=== PATIENT | female | born 1995 | race Caucasian/White ===

== ENCOUNTER 2023-02-22 13:54 | Outpatient (OUT) | payer BC, SELFPAY ==
--- NOTE | 2023-02-22 | US_ITS ---
The [address] [address] Patient Name: JOSELYN MATTHEWS MRN: [id number] date: 1995 Sex: F Assigned Patient Location: US Current Patient Location: US Accession/Order Number: [id number] Exam Date: 02/22/2023 13:57 Report Date: 02/22/2023 15:55 At the request of: ROSSY LEVI Procedure: US OB transvaginal EXAMINATION: US OB transvaginal HISTORY: MISSED MENSES COMPARISON: No relevant comparison available. FINDINGS: GESTATIONAL SAC: Present and normal appearing. YOLK SAC: Present and normal appearing. POLE: Present and normal appearing. CARDIAC: Present. UTERUS: Normal size and appearance. OVARIES: Right: Normal. Left: Corpus lutein cyst. CERVIX: 3.9 cm in length and closed. CUL-DE-SAC: Normal. OTHER: None. AGE BY LMP: 9 weeks 4 days MAGGI BY LMP: 09/23/2023 AGE BY US CRL: 9 weeks 3 days MAGGI BY US CRL: 09/24/2023 US/US OB transvaginal IMPRESSION: 1. Single live intrauterine . Electronically authenticated by: ENID BRADLEY Date: 02/22/2023 15:55
== END 2023-02-22 13:55 | disposition home or self-care (01) ==
LOC: US 13:55
PROVIDERS: Family Provider Family Medicine; Visit Provider Obstetrics & Gynecology
DX: Z34.91 Encounter for supervision of normal pregnancy, unspecified, first trimester (principal)
CPT/HCPCS: 76817

== ENCOUNTER 2023-03-21 20:39 | Outpatient (REF) | payer BC, SELFPAY ==
[2023-03-26 11:09] LABS: Age Gdln ACOG Testing Note (.); IGP, rfx Aptima HPV ASCU Note (.)
== END 2023-03-21 20:40 | disposition home or self-care (01) ==
LOC: LAB 20:39
PROVIDERS: Family Provider Family Medicine; Visit Provider Obstetrics & Gynecology
DX: Z12.4 Encounter for screening for malignant neoplasm of cervix (principal)
CPT/HCPCS: G0145

== ENCOUNTER 2023-03-31 11:50 | Outpatient (OUT) | payer BC, SELFPAY ==
[2023-04-05 02:07] LABS: AFP Value 35.6 ng/mL (.); Gest. Age on Collection Date 14.9 weeks (.); Gestat. Age Based On As provided (.); Insulin Dep Diabetes No (.); Maternal Age At EDD 26.4 yr (.); OSBR Risk 1 IN See interpretation. (.); Results Report (.)
== END 2023-03-31 11:51 | disposition home or self-care (01) ==
LOC: LAB 11:51
PROVIDERS: Family Provider Family Medicine; Visit Provider Obstetrics & Gynecology
DX: Z34.92 Encounter for supervision of normal pregnancy, unspecified, second trimester (principal)
CPT/HCPCS: 36415; 82105

== ENCOUNTER 2023-05-29 09:32 | Outpatient (OUT) | payer SELFPAY ==
--- NOTE | 2023-05-29 09:35 | US_ITS ---
[address] [address] Patient Name: JOSELYN MATTHEWS MRN: [id number] date: 1995 Sex: F Assigned Patient Location: US Current Patient Location: US Accession/Order Number: [id number] Exam Date: 05/29/2023 09:40 Report Date: 05/29/2023 15:36 At the request of: GENARO MUHAMMAD Procedure: US OB transvaginal EXAMINATION: US OB anatomy, US OB transvaginal HISTORY: Second Trimester Z34.92 COMPARISON: Ultrasound OB transvaginal 02/22/2023 TECHNIQUE: Transabdominal sonographic examination was performed for obstetrical and evaluation. FINDINGS: Number: 1 Heart Rate: 139.9 bpm H.B. /min Amniotic Fluid Volume: Subjectively normal Placental Location: Posterior with lower margin 3.8 cm from os. Cervix Length: 4.1 cm; closed. ANATOMY: Normal Structures -cerebellum, choroid plexus, cisterna magna, lateral cerebral ventricles, orbits, midline falx, hard palate, four-chamber heart, RVOT, LVOT, stomach, kidneys, bladder, umbilical cord insertion into abdomen, three-vessel cord, cervical spine, thoracic spine, lumbar spine, sacral spine, right upper extremity, left upper extremity, right lower extremity, left lower extremity. SUBOPTIMALLY SEEN: None ABNORMALITIES: None BIOMETRY: BPD: 5.6 cm 23 weeks 1 days ; 39% HC: 21.1 cm 23 weeks 1 days; 31% AC: 17.8 cm 22 weeks 5 days; 23% FL: 3.9 cm 22 weeks 4 days ; 17% EFW:526.8 grams; 18% FL/AC: 21.9 FL/BPD: 69.6 HC/AC: 1.2 GESTATIONAL AGE: Age by EDC: 23 weeks 2 days MAGGI by EDC: 09/23/2023 Age by current US: 22 weeks 6 days MAGGI by current US: 09/26/2023 US/US OB transvaginal IMPRESSION: 1. Single live intrauterine with growth detailed above. Electronically authenticated by: ENID BRADLEY Date: 05/29/2023 15:36
--- NOTE | 2023-05-29 09:35 | US_ITS ---
[address] [address] Patient Name: JOSELYN MATTHEWS MRN: [id number] date: 1995 Sex: F Assigned Patient Location: US Current Patient Location: US Accession/Order Number: [id number] Exam Date: 05/29/2023 09:40 Report Date: 05/29/2023 15:36 At the request of: GENARO MUHAMMAD Procedure: US OB anatomy EXAMINATION: US OB anatomy, US OB transvaginal HISTORY: Second Trimester Z34.92 COMPARISON: Ultrasound OB transvaginal 02/22/2023 TECHNIQUE: Transabdominal sonographic examination was performed for obstetrical and evaluation. FINDINGS: Number: 1 Heart Rate: 139.9 bpm H.B. /min Amniotic Fluid Volume: Subjectively normal Placental Location: Posterior with lower margin 3.8 cm from os. Cervix Length: 4.1 cm; closed. ANATOMY: Normal Structures -cerebellum, choroid plexus, cisterna magna, lateral cerebral ventricles, orbits, midline falx, hard palate, four-chamber heart, RVOT, LVOT, stomach, kidneys, bladder, umbilical cord insertion into abdomen, three-vessel cord, cervical spine, thoracic spine, lumbar spine, sacral spine, right upper extremity, left upper extremity, right lower extremity, left lower extremity. SUBOPTIMALLY SEEN: None ABNORMALITIES: None BIOMETRY: BPD: 5.6 cm 23 weeks 1 days ; 39% HC: 21.1 cm 23 weeks 1 days; 31% AC: 17.8 cm 22 weeks 5 days; 23% FL: 3.9 cm 22 weeks 4 days ; 17% EFW:526.8 grams; 18% FL/AC: 21.9 FL/BPD: 69.6 HC/AC: 1.2 GESTATIONAL AGE: Age by EDC: 23 weeks 2 days MAGGI by EDC: 09/23/2023 Age by current US: 22 weeks 6 days MAGGI by current US: 09/26/2023 US/US OB anatomy IMPRESSION: 1. Single live intrauterine with growth detailed above. Electronically authenticated by: ENID BRADLEY Date: 05/29/2023 15:36
== END 2023-05-29 09:33 | disposition home or self-care (01) ==
LOC: US 09:32
PROVIDERS: Family Provider Family Medicine; Visit Provider Physician Assistant
DX: Z34.92 Encounter for supervision of normal pregnancy, unspecified, second trimester (principal); Z3A.23 23 weeks gestation of pregnancy
CPT/HCPCS: 76805; 76817

== ENCOUNTER 2023-07-16 11:33 | Outpatient (OUT) | payer SELFPAY ==
--- OUTSIDE RECORDS SUMMARY | 2023-07-16 11:37 | XMS_ITS | CCD ---
Author Name Unknown Address [address] [facility] [address] [place] [address] Organization [facility] Care Team Providers Care Sign Builder Supervisor Name Role Phone NO, PHYSICIAN Unavailable Unavailable DEIRDRE ALEMAN Unavailable Unavailable SAIMA, MAXIM Unavailable Unavailable SAIMA, MAXIM Unavailable Unavailable BROCK GUEVARA Unavailable Unavailable SAIMA, MAXIM Unavailable Unavailable Unavailable Primary Care Provider UnavailDuran Saucedo Primary Care Physician [phone] Rossy LEVI Attending Unavailable Rossy LEVI Admitting Unavailable ROSSY LEVI Attending Unavailable CHRISTOPHER LAINEZ Attending Unavailab GENARO Cote Attending Unavailable ROSSY LEVI Attending Unavailable Medications Current Medications Medication Drug Class(es) Dates Sig (Normalized) Sig (Original) acetaminophen 325 mg / HYDROcodone bitartrate 5 mg oral tablet (1 source) Opioid Agonist Start: 08-11-2020 [place] 325 mg-5 mg oral tablet 1 tab(s), Oral, q6hr for pain, 8 tab(s), Refill(s) 0 Start Date: 08/11/20 Status: Ordered azithromycin 500 mg oral tablet (1 source) Macrolide Antimicrobial Start: 03-09-2017 End: 03-10-2017 take 2 tablets by mouth once daily azithromycin (ZITHROMAX) 500 MG tablet Take 2 (two) tablets (1,000 mg total) by mouth daily Take 2 tablets now for 1 day. 2 tablet 0 03/09/2017 03/10/2017 Active etonogestrel 68 mg drug implant (1 source) Progestin etonogestrel (NEXPLANON) 68 mg Impl subdermal implant by Subdermal route once. Active naproxen 500 mg oral tablet (1 source) Nonsteroidal Anti-inflammatory Drug Start: 08-11-2020 take 1 tablet by mouth twice daily at mealtime naproxen 500 mg Tab 500 mg = 1 tab(s), Oral, BID, with food, # 14 tab(s), Refills(s) 0 Start Date: 08/11/20 Status: Ordered Completed/Discontinued Medications Medication Drug Class(es) Dates Sig (Normalized) Sig (Original) cefTRIAXone 250 mg injection (2 sources) Cephalosporin Antibacterial Start: 03-09-2017 End: 03-09-2017 cefTRIAXone (ROCEPHIN) injection 250 mg Start: 03-09-2017 End: 03-09-2017 inject 250 mg by intramuscular injection once cefTRIAXone (ROCEPHIN) injection 250 mg 250 mg, Intramuscular, Once, Sun03/09/17 at 1945, For 1 dose, now Given 03/09/2017 19:02 EDT 250 mg Right Upper Outer Quadrant cephalexin 500 mg oral capsule (1 source) Cephalosporin Antibacterial Start: 08-11-2020 take 1 capsule by mouth four times daily Keflex 500 mg Cap 500 mg = 1 cap(s), Oral, QID, Take one capsule by mouth four times a day, # 40 cap(s), Refills(s) 0 Start Date: 08/11/20 Status: Ordered Problems Active Problems Problem Classification Problem Date Documented Da te Episodic/Chronic Unclassified (1 source) Unknown / UNK(Unknown) Onset: 01-16-2018 Unclassified (1 source) None (qualifier value) 08-11-2020 Past or Other Problems Problem Classification Problem Date Documented Date Episodic/Chronic Immunizations and screening for infectious disease (3 sources) Contact with and (suspected) exposure to infections with a predominantly sexual mode of transmission; Translations: [Exposure to sexually transmissible disorder] Onset: 03-09-2017 Episodic Unclassified (1 source) M25.572 Onset: 01-17-2018 Results Test Name Value Interpretation Reference Range Facility .Interpretation:on 3 HCV Ab IA Ql Comment Invalid Interpretation Code [facility] Comment on above: Result Comment: Not infected with HCV unless early or acute infection is suspected (which may be delayed in an immunocompromised individual), or other evidence exists to indicate HCV infection. Performed at: [address] [id number] PhD Ross Wise Performed By: #### 7 [id number], [id number], 90404810, 1432241, [id number], 878590700, 8702342268, 7831726, 969903892, 0639612 #### [facility] [address] [place] [address] C Urineon 03-01-2023 Bacteria identified Cx Nom (U) Microbiology PROCEDURE: Urine Culture [R1] SOURCE: U CleanCatch BODY SITE: COLLECTED DATE/TIME: 02/27/2023 16:35 EDT RECEIVED DATE/TIME: 02/27/2023 18:14 EDT START DATE/TIME: 02/27/2023 18:14 EDT FREE TEXT SOURCE: Rossy LEVI DO, DO, Corey R FINAL REPORTS Final Report [] Verified Date/Time: 03/01/2023 07:16 EDT 3,000 cfu/ml Mixed skin contaminants Performing Locations R1: This test was performed at: [facility], [address] [place] [address], [address]- , , Normal [facility] Comment on above: Performed By: #### 2 [id number] ####[facility] [address] [place] [address]70 HCV Antibody RFX to Quant PC [place] 03-01-2023 HCV IgG IA Ql Non-Reactive Invalid Interpretation Code Non Reactive [facility] Comment on above: Result Comment: Perf ormed at: [facility] [address] [id number] PhD Ross Wise Performed By: #### 7 [id number], 88497228, 62993078, 3938464, 9695416592, 968538226, 9632698984, 8074995, 263465487, 2957584 #### [facility] [address] [place] [address] 13266 HIV Screen 4th Generation wR fxon 03-01-2023 HIV 1+2 Ab+HIV1 p24 Ag IA Ql Non-Reactive Invalid Interpretation Code Non Reactive [facility] Comment on above: Result Comment: HIV Negative HIV-1/HIV-2 antibodies and HIV-1 p24 antigen were NOT detected. There is no laboratory evidence of HIV infection. Performed at: [address] [id number] PhD Ross Wise Performed By: #### 7 [id number], 11529120, 83581173, 0203219, 5185456959, 195063243, 5408860063, 6908726, 478557224, 8127903 #### [facility] [address] [place] [address] Hep Bs Agon 03-01-2023 HBV surface Ag IA Ql Negative Invalid Interpretation Code Negative [facility] Comment on above: Result Comment: Perf ormed at: [address] [id number] PhD Ross Wise Performed By: #### 7 28462394, 72240243, 54048136, 5932759, 7392200022, 491160162, 4952596923, 0979244, 904125416, 0200559 ####[facility] [address] [place] [address] RPR with Conf Rfxon 03-01-20 Reagin Ab RPR Ql (S) Non-Reactive Invalid Interpretation Code Non Reactive [facility] Comment on above: Result Comment: Perf ormed at: [address] [id number] PhD Ross Wise Performed By: #### 7 81524716, 98540672, 38218272, 9408632, 1329676945, 632283485, 1229848127, 1266361, 483315597, 3789525 #### [facility] [address] [place] [address] Rubella IgGon 03-01-2023 Rubella virus IgG Qn (S) 11.40 [IU]/mL Invalid Interpretation Code Immune >0.99 [facility] Comment on above: Result Comment: Non- immune <0.90 Equivocal 0.90 - 0.99 Immune >0.99 Performed at: [id number] [place], [place] [id number] PhD Ross Wise Performed By: #### 7 84374651, 14803217, 32225439, 9272796, 0109091737, 739763855, 1918285332, 0502512, 125514906, 7576163 ####[facility] [address] [place] [address] Rubella IgMon 03-01-2023 Rubella virus IgM IA Qn (S) <20.0 Invalid Interpretation Code 0.0-19.9 [facility] Comment on above: Result Comment: Nega tive <20.0 Equivocal 20.0 - 24.9 Positive >24.9 Performed at: [address] [id number] PhD Ross Wise Performed By: #### 7 35541951, 23649078, 01925950, 8506053, 0907140008, 987572178, 0441736557, 9512942, 896889726, 4862837 #### [address] [place] [address] ABO/Rhon 02-27-2023 ABO/Rh Positive Invalid Interpretation Code [facility] Comment on above: Performed By: #### 1 8399049, 3358093 ####[address] [place] [address] ABSCon 02-27-2023 ABSC Gel Interp Negative Normal [facility] Comment on above: Performed By: #### 1 8525208, 5864731 ####[address] [place] [address] BLOOD BANKOrdered By: Maxim Price on 02-27-2023 ABO/Rh Interp Positive Invalid Interpretation Code [facility] [place] Subsection ABSC Gel Interp Negative (02/27/23 4:43 PM) Normal [facility] [place] BB Subsection CBC w/Indiceson 02-27-2023 Erythrocyte distribution width (RBC) [Ratio] 12.8 % Normal 10.9-14.2 [facility] Comment on above: Performed By: #### 7 83058526, 16559909, 12017777, 2467766, 9375815695, 788943174, 7062684922, 8678358, 552512112, 6585410 #### [facility] [address] [place] [address] Hematocrit (Bld) [Volume fraction] 40.7 % Normal 34.0-46.0 [facility] Comment on above: Performed By: #### 7 90737095, 61810370, 40373212, 8841225, 1998398622, 252261232, 4261359789, 0369355, 950572004, 5190736 #### [facility] [address] [place] [address] Hemoglobin (Bld) [Mass/Vol] 14.0 g/dL Normal 12.0-16.0 [facility] Comment on above: Performed By: #### 7 06581107, 77449624, 53518592, 2314976, 8239084508, 134907280, 4609187085, 8574143, 546617615, 9811472 #### [facility] [address] [place] [address] MCH (RBC) [Entitic mass] 31.1 pg Normal 27.0-34.0 [facility] Comment on above: Performed By: #### 7 28828601, 69810158, 38140477, 7675077, 3819291237, 815368427, 1761775356, 7014415, 819545990, 4893099 #### [facility] [address] [place] [address] MCHC (RBC) [Mass/Vol] 34.4 g/dL Normal 31.4-36.0 [facility] Comment on above: Performed By: #### 7 94205916, 98896109, 58444590, 9641159, 4543904698, 635395141, 2589336840, 0951693, 860614603, 2873908 #### [facility] [address] [place] [address] MCV (RBC) [Entitic vol] 90.4 fL Normal 80.0-100.0 [facility] Comment on above: Performed By: #### 7 08454928, 89992060, 86181815, 1755716, 3074248341, 743426579, 1528306192, 4557043, 313863531, 2301723 #### [facility] [address] [place] [address] Platelet mean volume (Bld) [Entitic vol] 7.9 fL Normal 6.4-10.8 [facility] Comment on above: Performed By: #### 7 16937556, 38315826, 23355727, 6028671, 3425041540, 674138333, 3206350462, 8051871, 943692148, 6097625 #### [facility] [address] [place] [address] Platelets (Bld) [#/Vol] 312.0 E9/L Normal 150.0-500.0 [facility] Comment on above: Performed By: #### 7 74323121, 46702744, 46867593, 2297205, 0827350521, 905959200, 4938581282, 5736882, 909172926, 1211900 #### [facility] [address] [place] [address] RBC (Bld) [#/Vol] 4.5 E12/L Normal 4.3-5.9 [facility] Comment on above: Performed By: #### 7 07323908, 07906436, 82058406, 1701095, 8530380598, 346204171, 5199495423, 7712463, 106263774, 4704378 #### [facility] [address] [place] [address] WBC corrected for nucl RBC Auto (Bld) [#/Vol] 9.9 E9/L Normal 4.0-11.0 [facility] Comment on above: Performed By: #### 7 90583110, 04882645, 91428276, 3484046, 5350458110, 132032121, 8989436221, 0999233, 720752344, 7812569 #### [facility] [address] [place] [address] CHEMISTRYOrdered By: Cheko Segal on 02-27-2023 HbA1c (Bld) [Mass fraction] 5.0 % Normal <=5.9% [facility] ChemAutoSS CHEMISTRYOrdered By: SYSTEM SYSTEM on 02-27-2023 TSH Qn 2.85 m[IU]/L Normal 0.34 - 5.60 mcIU/mL [facility] Remisol Consent for Treatmenton 02-07 Consent for Treatment [id number]:127 Normal [facility] HEMATOLOGYOrdered By: Maxim Price on 02-27-2023 Erythrocyte distribution width (RBC) [Ratio] 12.8 % Normal 10.9 - 14.2 % [facility] HemeAutoSS Hematocrit (Bld) [Volume fraction] 40.7 % Normal 34.0 - 46.0 % [facility] HemeAutoSS Hemoglobin (Bld) [Mass/Vol] 14.0 g/dL Normal 12.0 - 16.0 gm/dL [facility] HemeAutoSS MCH (RBC) [Entitic mass] 31.1 pg Normal 27.0 - 34.0 pg [facility] HemeAutoSS MCHC (RBC) [Mass/Vol] 34.4 g/dL Normal 31.4 - 36.0 gm/dL [facility] HemeAutoSS MCV (RBC) [Entitic vol] 90.4 fL Normal 80.0 - 100.0 fL [facility] HemeAutoSS Platelet mean volume (Bld) [Entitic vol] 7.9 fL Normal 6.4 - 10.8 fL [facility] HemeAutoSS Platelets (Bld) [#/Vol] 312.0 E9/L Normal 150.0 - 500.0 E9/L [facility] HemeAutoSS RBC (Bld) [#/Vol] 4.5 E12/L Normal 4.3 - 5.9 E12/L [facility] HemeAutoSS WBC corrected for nucl RBC Auto (Bld) [#/Vol] 9.9 E9/L Normal 4.0 - 11.0 E9/L [facility] [place] HemeAutoSS CryR2kap 02-27-2023 HbA1c (Bld) [Mass fraction] 5.0 % Normal <=5.9 [facility] Comment on above: Performed By: #### 7 39070318, 40305873, 52377714, 1542405, 4583128676, 758084442, 9729754762, 9851436, 750442396, 6190790 #### [facility] [address] [place] [address] Physician Orderon 02-27-2023 Physician Order [id number]:127 Normal [facility] TSHon 02-27-2023 TSH Qn 2.85 m[IU]/L Normal 0.34-5.60 [facility] Comment on above: Performed By: #### 7 76619877, 83352793, 71727686, 0314882, 3544701460, 575952261, 5526791075, 6542043, 662023973, 0961386 #### [facility] [address] [place] [address] XR Ankle 3+ Views LTon 01-16 XR Ankle - left 3 views EXAMINATION TYPE: XR Ankle 3+ Views LT DATE OF EXAM : 01/16/2018 2:01 PMHISTORY: Pain in LEFT ankle, notable laterally and medially, status post fall injury 10 days agoCOMPARISON: NONEFINDINGS: The ankle mortise is symmetric. The talar dome appears intact. No acute fracture or dislocation is evident. Mild soft tissue swelling anteriorly and laterally.IMPRESSION: 1. No acute osseous findings.2. Mild anterolateral soft tissue swelling.Maximino Joy thanks you for the opportunity to care for your patient. Workstation ID: [id number] - [id number] FINAL REPORT Dictated By: Galo Whitehead MD 01/16/2018 15:17Assigned Physician: Galo Whitehead MD and Electronically Signed By: Galo Whitehead MD 01/16/2018 15:17Transcribed by: AYLIN 01/16/2018 15:17Technologist: MLR Normal [facility] CBC with Differentialon 03-0 Basophils Auto #/vol (Bld) 0.10 thou/mcL Normal 0.00-0.[address] [facility] Comment on above: Performed By: #### 6 9742-5 ####[address] Basophils/100 WBC Auto (Bld) 0.8 % Normal 0.0-2.[address] [facility] Comment on above: Performed By: #### 6 9742-5 ####[address] Eosinophils 0.10 thou/mcL Normal 0.00-0.70 [facility] Comment on above: Performed By: #### 6 9742-5 ####[address] Eosinophils/100 leukocytes 1.1 % Normal 0.0-7.[address] [facility] Comment on above: Performed By: #### 6 9742-5 ####[address] Erythrocyte distribution width Entitic volume (RBC) 13.2 % Normal 11.0-14.8 [facility] Comment on above: Performed By: #### 6 9742-5 ####[address] Erythrocytes (RBC) 4.66 million/mcL Normal 3.80-5.[address] [facility] Comment on above: Performed By: #### 6 9742-5 ####[address] Hematocrit (HCT) 41.6 % Normal 35.0-45.0 [facility] Comment on above: Performed By: #### 6 9742-5 ####[address] Hemoglobin mass conc (Bld) 14.5 g/dL Normal 12.0-16.[address] [facility] Comment on above: Performed By: #### 6 9742-5 ####[facility] [address] [place], [place] Lymphocytes 1.70 thou/mcL Normal 1.00-4.80 [facility] Comment on above: Performed By: #### 6 9742-5 ####[facility] [address] [place], [place] Lymphocytes/100 leukocytes 21.3 % Low 25.0-45.[address] [facility] Comment on above: Performed By: #### 6 9742-5 ####[address] MCH 31.2 Picograms Normal 27.0-34.0 [facility] Comment on above: Performed By: #### 6 9742-5 ####[address] MCHC mass conc (RBC) 35.0 g/dL Normal 32.0-36.0 [facility] Comment on above: Performed By: #### 6 9742-5 ####[facility] MCV 89.3 fL Normal 80.0-97.[address] [facility] Comment on above: Performed By: #### 6 9742-5 ####[address] Monocytes 0.50 thou/mcL Normal 0.00-0.90 [facility] Comment on above: Performed By: #### 6 9742-5 ####[address] Monocytes/100 leukocytes 6.7 % Normal 2.0-8.[address] [facility] Comment on above: Performed By: #### 6 9742-5 ####[address] Neutrophils 5.50 thou/mcL Normal 1.80-7.70 [facility] Comment on above: Performed By: #### 6 9742-5 ####[address] Neutrophils/100 WBC Auto (Bld) 70.1 % Normal 39.0-75.[address] [facility] Comment on above: Performed By: #### 6 9742-5 ####[facility] [address] [place], [place] Platelet mean volume Entitic volume (Bld) 8.1 FL Normal 6.2-12.1 [facility] Comment on above: Performed By: #### 6 9742-5 ####[facility] [address] [place], [place] Platelets 314 thou/mcL Normal 142-[address] [facility] Comment on above: Performed By: #### 6 9742-5 ####[address] [place], [place] WBC (Leukocytes) 7.8 thou/mcL Normal 4.5-13.[address] [facility] Comment on above: Performed By: #### 6 9742-5 ####[address] [place], [place] Comprehensive Metabolic Pane nilesh 09-12-2017 Alanine aminotransferase (ALT) 14 Units/L Normal 14-[address] [facility] Comment on above: Performed By: #### 6 9405-9, 12825-8, 3040-3, 33030-8 ####[facility] [address] [place], [place] Albumin 4.3 g/dL Normal 3.5-4.[address] [facility] Comment on above: Performed By: #### 6 9405-9, 28984-8, 3040-3, 09126-3 ####[facility] [address] [place], [place] Alkaline phosphatase (ALP) 78 Units/L Normal 32-[address] [facility] Comment on above: Performed By: #### 6 9405-9, 05818-3, 3040-3, 05392-5 ####[facility] [address] [place], [place] Anion gap 9.0 mmol/L Normal 6.0-18.[address] [facility] Comment on above: Result Comment: PLEA SE NOTE:The calculated Anion Gap(AGAP) does not include Potassium. Performed By: #### 6 9405-9, 59735-9, 3040-3, 45011-3 ####[facility] [address], [place] Aspartate aminotransferase (AST) 17 Units/L Normal 15-[address] [facility] Comment on above: Performed By: #### 6 9405-9, 47318-4, 3040-3, 29722-9 ####[facility] [address], [place] Bilirubin (total) 0.7 mg/dL Normal 0.3-1.2 [facility] Comment on above: Performed By: #### 6 9405-9, 62456-2, 3040-3, 26492-3 ####[facility] [address] [place] Calcium 9.8 mg/dL Normal 8.9-10.[address] [facility] Comment on above: Performed By: #### 6 9405-9, 86028-0, 3040-3, 57438-4 ####[facility] [address], [place] Chloride 103 mmol/L Normal 98-[address] [facility] Comment on above: Performed By: #### 6 9405-9, 70234-1, 3040-3, 22847-0 ####[facility] [address], [place] CO2 29 mmol/L Normal 22-[address] [facility] Comment on above: Performed By: #### 6 9405-9, 50989-7, 3040-3, 69419-1 ####[facility] [address] [place] Creatinine 0.87 mg/dL Normal 0.60-1.[address] [facility] Comment on above: Performed By: #### 6 9405-9, 64918-3, 3040-3, 08690-2 ####[facility] [address] [place] Glucose mass conc 89 mg/dL Normal 70-110 [facility] Comment on above: Performed By: #### 6 9405-9, 32994-5, 3040-3, 30329-0 ####[facility] [address], [place] Potassium molar conc 5.4 mmol/L High 3.6-5.1 [facility] Comment on above: Performed By: #### 6 9405-9, 37462-1, 3040-3, 06503-7 ####[facility] [address], [place] Protein 6.7 g/dL Normal 6.1-7.[address] [facility] Comment on above: Performed By: #### 6 9405-9, 56834-4, 3040-3, 93065-3 ####[facility] [address] [place] Sodium 141 mmol/L Normal 136-[address] [facility] Comment on above: Performed By: #### 6 9405-9, 72227-4, 3040-3, 99321-4 ####[facility] [address] [place] Urea nitrogen mass conc (BldV) 10 mg/dL Normal 8-[address] [facility] Comment on above: Performed By: #### 6 9405-9, 70783-7, 3040-3, 50339-7 ####[facility] [address] [place] GFRaaon 09-12-2017 eGFR (black) mL/min/{1.73_m2} Normal [facility] Comment on above: Result Comment: The MDRD equation has not been validated for those over 70 years, women, patients with serious co-morbid conditions, or with extremes of bodysize, muscle mass of nutritional status. Performed By: #### 6 9405-9, 60504-4, 3040-3, 85373-9 ####[facility] [address], [place] GFRbbon 09-12-2017 eGFR (non-black) mL/min/{1.73_m2} Normal [facility] Comment on above: Performed By: #### 6 9405-9, 38795-3, 3040-3, 06065-7 ####[facility] [address], [place] Lipaseon 09-12-2017 Lipase 16 Units/L Low 22-[address] [facility] Comment on above: Performed By: #### 6 9405-9, 96600-2, 3040-3, 49430-5 ####[facility] [address], [place] Vital Signs Date Time Vital Sign Value Performing Clinician Facility 03-09-2017 18:37-0400 BMI (Body Mass Index) 22.43 kg/m2 Deirdre Aleman [facility] Work Phone: 03-09-2017 18:37-0400 Body Temperature 98.49 [degF] Deirdre Aleman [facility] Work Phone: 03-09-2017 18:37-0400 BP Diastolic 76 mm[Hg] Deirdre Aleman [facility] Work Phone: 03-09-2017 18:37-0400 BP Systolic 127 mm[Hg] Deirdre Aleman [facility] Work Phone: 03-09-2017 18:37-0400 Height 170.2 cm Deirdre Aleman [facility] Work Phone: 03-09-2017 18:37-0400 Pulse (Heart Rate) 61 /min Deirdre Aleman [facility] Work Phone: 03-09-2017 18:37-0400 Pulse Oximetry 98 % Deirdre Aleman [facility] Work Phone: 03-09-2017 18:37-0400 Respiratory Rate 18 /min Deirdre Aleman [facility] Work Phone: 03-09-2017 18:37-0400 Weight 64.95 kg Deirdre Aleman [facility] Work Phone: Encounters Encounter Date Encounter Type Care Provider Facility Start: 07-03-2023 End: 07-03-2023 ambulatory ROSSY LEVI Not Available Start: 06-20-2023 End: 06-20-2023 ambulatory GENARO MUHAMMAD Not Available Start: 05-23-2023 End: 11-15-2023 ambulatory CHRISTOPHER LAINEZ Not Available Start: 05-22-2023 End: 05-22-2023 ambulatory ROSSY LEVI Not Available Start: 02-27-2023 End: 02-28-2023 ambulatory Rossy LEVI [place] [place] Start: 02-27-2023 End: 02-27-2023 Patient encounter procedure Rossy LEVI [facility] Start: 01-17-2018 End: 01-17-2018 Patient encounter BROCK GUEVARA Facility:[facility] Start: 09-13-2017 End: 09-13-2017 Patient encounter MAXIM LANDAVERDE Facility:[facility] Start: 03-09-2017 End: 03-09-2017 Ambulatory PHYSICIAN NO [facility] Start: 03-09-2017 End: 03-09-2017 Office outpatient new 30 minutes Deirdre Aleman Work Phone: [facility] Comment on above: STD exposure (Primar y Dx) Procedures Date Procedure Procedure Detail Performing Clinician None (qualifier value) Rossy LEVI Plan of Treatment Date Care Activity Detail Author Start: 03-09-2017 SEQUENTIAL INFLUENZA VACCINE (#1) SEQUENTIAL INFLUENZA VACCINE (#1) [facility] Work Phone: Start: 2008 HPV VACCINES (1 of 3 - Female 3 Dose Series) HPV VACCINES (1 of 3 - Female 3 Dose Series) [facility] Work Phone: Start: 1997 TETANUS EVERY 10 YR TETANUS EVERY 10 YR [facility] Work Phone: Chlamydia/GC/Trichom katarzyna s Amplified RNA Chlamydia/GC/Trichomona s Amplified RNA Routine STD exposure Ordered: 03/09/2017 [facility] Work Phone: Comment on above: Ordered: 03/09/2017 Chlamydia/Gonorrhoea e Amplified RNA Chlamydia/Gonorrhoeae Amplified RNA Routine STD exposure Ordered: 03/09/2017 [facility] Work Phone: Comment on above: Ordered: 03/09/2017 Trichomonas vaginali s Amplified RNA Trichomonas vaginalis Amplified RNA Routine STD exposure Ordered: 03/09/2017 [facility] Work Phone: Comment on above: Ordered: 03/09/2017 Immunizations Immunization Date Immunization Notes Care Provider Calvin angel 08-11-2020 tetanus toxoid, redu chris diphtheria toxoid, and acellular pertussis vaccine, adsorbed Rossylondon LEVI [facility] Payers Date Payer Category Payer Unknown 2015 Unknown [id number] 1997 Unknown [id number] 1997 Unknown [id number] 1997 Unknown [id number] 1997 Unknown [id number] 1997 Unknown [id number] Social History Date Type Detail Facility Start: 03-09-2017 Tobacco smoking stat [facility] Never smoker [facility] Work Phone: Sex Assigned At Not on file [facility] Work Phone: Tobacco smoking status No Smokin g Status Entered [facility] Sex Assigned At Female [facility] Evaluation + Plan note 02-27-2023 Note Date & Type Note Facility 02-27-2023 Evaluation + Plan note Diagnostic Tests PendingUrine Culture 02/27/23HIV Screen 4th Generation wRfx 02/27/23HCV Antibody RFX to Quant PCR 02/27/23Hepatitis B Surface Antigen 02/27/23RPR with Conf Rfx 02/27/23Rubella Antibody IgG 02/27/23Rubella Antibody IgM 02/27/23 [facility] Hospital course Narrative Note Date & Type Note Facility Hospital course Narrative No data available for this section [facility] Hospital Discharge instructions Note Date & Type Note Facility Hospital Discharge instructions No data available for this section [facility] Progress note Note Date & Type Note Facility Progress note No data available for this section [facility] Summary Purpose Family History No Family History Records FoundNo Family History Records FoundNo Family History Records FoundNo Family History Records Found Advance Directives No Advanced Directives Records FoundNo Advanced Directives Records FoundNo Advanced Directives Records FoundNo Advanced Directives Records Found Instructions * Patient Instructions - Deirdre Aleman PA-C - 03/09/2017 6:54 PM EDT Follow up with [facility], If worse go to ED for further evaluation Exposure to Sexually Transmitted Infections: Care Instructions Your Care Instructions Sexually transmitted infections (STIs) are those diseases spread by sexual contact. There are at least 20 different STIs, including chlamydia, gonorrhea, syphilis, and human immunodeficiency virus (HIV), which causes AIDS. Bacteria- caused STIs can be treated and cured. STIs caused by viruses, such as HIV, can be treated but not cured. Some STIs can reduce a woman's chances of getting in the future. STIs are spread during sexual contact, such as vaginal intercourse and oral or anal sex. Follow-up care is a jain part of your treatment and safety. Be sure to make and go to all appointments, and call your doctor if you are having problems. It s also a good idea to know your test resultsand keep a list of the medicines you take. How can you care for yourself at home? Your doctor may have given you a shot of antibiotics. If your doctor prescribed antibiotic pills, take them as directed. Do not stop taking them just because you feel better. You need to take the full course of antibiotics. Do not have sexual contact while you have symptoms of an STI or are being treated for an STI. Tell your sex partner (or partners) that he or she will need treatment. If you are a woman, do not douche. Douching changes the normal balance of bacteria in the vagina and may spread an infection up into your reproductive organs. To prevent exposure to STIs in the future Use latex condoms every time you have sex. Use them from the beginning to the end of sexual contact. Talk to your partner before you have sex. Find out if he or she has or is at risk for any STI. Keepin mind that a person may be able to spread an STI even if he or she does not have symptoms. Do not have sex if you are being treated for an STI. Do not have sex with anyone who has symptoms of an STI, such as sores on the genitals or mouth. Having one sex partner (who does not have STIs and does not have sex with anyone else) is a good way to avoid STIs. When should you call for help? Call your doctor now or seek immediate medical care if: You have new pain in your belly or pelvis. You have symptoms of a urinary tract infection. These may include: Pain or burning when you urinate. A frequent need to urinate without being able to pass much urine. Pain in the flank, which is just below the rib cage and above the waist on either side of the back. Blood in your urine. A fever. You have new or worsening pain or swelling in the scrotum. Watch closely for changes in your health, and be sure to contact your doctor if: You have unusual vaginal bleeding. You have a discharge from the vagina or penis. You have any new symptoms, such as sores, bumps, rashes, blisters, or warts. You have itching, tingling, pain, or burning in the genital or anal area. You think you may have an STI. Where can you learn more? Log into your personal health record on https://Playtikat.Rockpack and enter M049 in the Education box to learn more about Exposure to Sexually Transmitted Infections: Care Instructions. Current as of: December 03, 2015 Content Version: 11.2 3241-1768 [employer]. Care instructions adapted under license by your healthcare professional. If you have questions about a medical condition or this instruction, always ask your healthcare professional. [employer] disclaims any warranty or liability for your use of this information. in this encounter History of Present Illness * Deirdre Aleman PA-C - 03/09/2017 6:50 PM EDT Formatting of this note may be different from the original. PATIENT NAME: Joselyn Matthews [facility] [address] [facility] [address] : 1995 DATE OF VISIT: 03/09/2017 #: [id number] PROVIDER: Deirdre Aleman PA-C Chief Complaint Patient presents with Exposure to STD boyfriend treated for chlamydia today SUBJECTIVE 21 y.o. female presents Exposure to STD (boyfriend treated for chlamydia today) HPI Comments: Boyfriend positive for chlamydia today, pt has had pelvic in the past, denies any symptoms Exposure to STD Pertinent negatives include no abdominal pain or fever. MEDICAL ISSUES History reviewed. No pertinent past medical history. There is no problem list on file for this patient. SOCIAL HISTORY Social History Social History Marital status: Single Spouse name: N/A Number of children: N/A Years of education: N/A Occupational History Not on file. Social History Main Topics Smoking status: Never Smoker Smokeless tobacco: Never Used Alcohol use Yes Comment: occ Drug use: No Sexual activity: Not on file Other Topics Concern Not on file Social History Narrative No narrative on file FAMILY HISTORY History reviewed. No pertinent family history. REVIEW OF SYSTEMS Review of Systems Constitutional: Negative for chills and fever. Gastrointestinal: Negative for abdominal pain. Genitourinary: Negative for vaginal discharge. MEDICATIONS PRIOR TO VISIT No current outpatient prescriptions on file prior to visit. No current facility-administered medications on file prior to visit. ALLERGIES/INTOLERANCES No Known Allergies OBJECTIVE BP 127/76 Pulse 61 Temp 98.5 F (36.9 C) (Oral) Resp 18 Ht 5' 7 Wt 65 kg (143 lb 3.2 oz) SpO2 98% BMI 22.43 kg/m2 Physical Exam Constitutional: She is oriented to person, place, and time. She appears well- developed and well-nourished. Cardiovascular: Normal rate. Pulmonary/Chest: Effort normal. Abdominal: Soft. There is no tenderness. Genitourinary: Genitourinary Comments: Currently on menses Neurological: She is alert and oriented to person, place, and time. Results No results found for this or any previous visit (from the past 168 hour(s)). ASSESSMENT/PLAN (expressed as patient instructions): No diagnosis found. No Follow-up on file. ADDITIONAL CLINICAL COMMENTS No notes on file ORDERS PLACED THIS VISIT No orders of the defined types were placed in this encounter. MEDICATION LIST AT END OF VISIT Current Outpatient Prescriptions Medication Sig Dispense Refill etonogestrel (NEXPLANON) 68 mg Impl subdermal implant by Subdermal route once. No current facility-administered medications for this visit. in this encounter Assessments Diagnosis STD exposure - Primary Additional Source Comments INFORMATION SOURCE (unrecogn ized section and content) DATE CREATED AUTHOR 01/02/2018 [facility] DATE CREATED AUTHOR AUTHOR'S ORGANIZ ATION 01/17/2018 [facility] DATE CREATED AUTHOR AUTHOR'S ORGANIZ ATION 03/02/2023 [facility] DATE CREATED AUTHOR AUTHOR'S ORGANIZ ATION 07/05/2023 [facility] EPIC Reason for Visit (unrecogniz ed section and content) Reason Comments Exposure to STD boyfriend treated fo r chlamydia today Patient Care team informatio n (unrecognized section and content) Personnel Name: Cristofer COLEMAN, Duran Elizabeth Address: Address: [address] [place] [address] FOR RECORDS PERTAINING TO PATIENTS WHO ARE OR HAVE BEEN ENROLLED IN A CHEMICAL DEPENDENCY/SUBSTANCEABUSE PROGRAM, SOME INFORMATION MAY BE OMITTED. This clinical summary was aggregated from multiple sources. Caution should be exercised in using it in the provision of clinical care. This summary normalizes information from multiple sources, and as a consequence, information in this document may materially change the coding, format and clinical context of patient data. In addition, data may be omitted in some cases. CLINICAL DECISIONS SHOULD BE BASED ON THE PRIMARY CLINICAL RECORDS. [employer] provides no warranty or guarantee of the accuracy or completeness of information in this document.
[2023-07-16 12:53] LABS: Basophils Percent Auto 0.3 % (0.2-2.0); Eosinophils Percent Auto 0.3 % (0.9-7.0); Hematocrit 37.3 % (36.0-48.0); Hemoglobin 12.2 g/dL (12.0-16.0); Immature Granulocytes Abs Auto 0.04 10^3/uL (0.00-0.03); Immature Granulocytes Pct Auto 0.4 % (0.0-0.5); Lymphocytes Absolute Auto 1.3 10^3/uL (1.2-3.8); Mean Corpuscular HGB Conc 32.7 g/dL (29.9-35.2); Mean Corpuscular Hemoglobin 30.5 pg (26.7-34.0); Mean Corpuscular Volume 93.3 fL (81.0-99.0); Mean Platelet Volume 9.6 fL (9.5-13.5); Monocytes Absolute Auto 0.7 10^3/uL (0.3-0.8); Monocytes Percent Auto 7.3 % (1.7-12.0); Neutrophils Percent Auto 77.7 % (43.0-75.0); Platelet Count 248 10^3/uL (150-450); Red Cell Distribution Width 12.6 % (11.0-15.0)
[2023-07-16 14:39] LABS: Glucose 1 Hour 114 mg/dL
== END 2023-07-16 11:34 | disposition home or self-care (01) ==
LOC: LAB 11:34
PROVIDERS: Family Provider Family Medicine; Visit Provider Obstetrics & Gynecology
DX: Z34.92 Encounter for supervision of normal pregnancy, unspecified, second trimester (principal)
CPT/HCPCS: 36415; 82950; 85025

== ENCOUNTER 2023-08-27 20:29 | Outpatient (REF) | payer MEDICAID, SELFPAY ==
--- OUTSIDE RECORDS SUMMARY | 2023-08-27 20:34 | XMS_ITS | CCD ---
Author Name Unknown Address [address] [place] [address] Organization [facility] Care Team Providers Care Feather Cutting Machine Feeder Name Role Phone NO, PHYSICIAN Unavailable Unavailable DEIRDRE ALEMAN Unavailable Unavailable SAIMA, MAXIM Unavailable Unavailable SAIMA, MAXIM Unavailable Unavailable BROCK GUEVARA Unavailable Unavailable SAIMA, MAXIM Unavailable Unavailable Unavailable Primary Care Provider UnavailDuran Saucedo Primary Care Physician Rossy AYERS Attending Unavailable Rossy AYERS Admitting Unavailable Duran Cleveland MD Primary Care Provider ROSSY AYERS Attending Unavailable KARLA MUHAMMAD Attending Unavailable CHRISTOPHER LAINEZ Attending Unavailab le ROSSY AYERS Attending Unavailable KARLA MUHAMMAD Attending Unavailable ROSSY AYERS Attending Unavailable KARLA MUHAMMAD Attending Unavailable ROSSY AYERS Attending Unavailable Allergies Allergy Classification Reported Allergen(s) Allergy Type Date of Onset Reaction(s) Facility (2 sources) Octacosanol Propensity to adverse reactions 3 [facility] Work Phone: Medications Current Medications Medication Drug Class(es) Dates Sig (Normalized) Sig (Original) acetaminophen 325 mg / HYDROcodone bitartrate 5 mg oral tablet (1 source) Opioid Agonist Start: 08-11-2020 [place] 325 mg-5 mg oral tablet 1 tab(s), [...] Refills(s) 0 Start Date: 08/11/20 Status: Ordered MV-Min-Fe Fum-FA-DHA ( 1 PO) (2 sources) MV-Min- Fe Fum-FA-DHA ( 1 PO) Take by mouth. 0 Active Completed/Discontinued Medications Medication Drug Class(es) Dates Sig [...] Classification Problem Date Documented Da te Episodic/Chronic Other and delivery including normal (2 sources) Third trimester ; Translations: [Encounter for supervision of normal , unspecified, third trimester] 08-15-2023 Episodic Unclassified (1 source) Unknown / UNK(Unknown) Onset: 01-16-2018 Unclassified (1 source) None (qualifier value) 08-11-2020 Past or Other Problems Problem Classification Problem Date Documented Date Episodic/Chronic Immunizations and screening for infectious disease (3 sources) Contact with and (suspected) exposure to infections with a predominantly sexual mode of transmission; Translations: [Exposure to sexually transmissible disorder] Onset: 03-09-2017 Episodic Unclassified (1 source) M25.572 Onset: 01-17-2018 NEGATED: Highlighted row has been ruled out!Unclassified (2 sources) No known active problems 05-23-2023 Results Test Name Value Interpretation Reference Range Facility Urinalysis macro (dipstick) panel (U)on 08-20-2023 Bilirubin, UA Negative Negative - 4(70) +++ mg/dL [facility] Blood, UA Negative Negative - 50 Maxime/mcL [facility] Clarity, UA Clear [facility] Color, UA Yellow [facility] Glucose, UA Negative Negative - 2000(110) ++++ mg/dL [facility] Interpretation and review of laboratory results Abnormal [facility] Ketones, UA Negative Negative - 160(16) ++++ mg/dL [facility] Leukocytes, UA Trace Negative - 500+++ Cassidy/mcL [facility] Nitrite, UA Negative Negative - Positive [facility] pH, UA 6.5 5 - 9 [facility] Protein, UA Negative Negative - 2000(20) ++++ mg/dL [facility] Spec Grav, UA 1.020 1 - 1.03 [facility] Urobilinogen, UA 0.2 0.2 - 12 mg/dL [facility] Cyt[facility] Cervical or vaginal smear or scraping studyOrdered By: Shivani Garcia on 03-21-2023 [facility] .Interpretation:on 3 HCV Ab IA Ql Comment Invalid Interpretation Code [facility] Comment on above: Result Comment: Not infected with HCV unless early or acute infection is suspected (which may be delayed in an immunocompromised individual), or other evidence exists to indicate HCV infection. Performed at: [facility] [id number] PhD Ross Wise Performed By: #### 7 [id number], 06932960, 22511251, 4481052, [id number], 449826557, 5725318283, 3467978, 915193060, 4722811 #### [facility] [address] [place] [address] C Urineon 03-01-2023 Bacteria identified Cx Nom (U) Microbiology PROCEDURE: Urine Culture [R1] SOURCE: U CleanCatch BODY SITE: COLLECTED DATE/TIME: 02/27/2023 16:35 EDT RECEIVED DATE/TIME: 02/27/2023 18:14 EDT START DATE/TIME: 02/27/2023 18:14 EDT FREE TEXT SOURCE: Rossy AYERS DO, DO, Rossy Montejo FINAL REPORTS Final Report [] Verified Date/Time: 03/01/2023 07:16 EDT 3,000 cfu/ml Mixed skin contaminants Performing Locations R1: This test was performed at: [facility], [address] [place] [address], [address]- , , Normal [facility] Comment on above: Performed By: #### 2 [id number] ####[facility] [address] [place] [address] HCV Antibody RFX to Quant PC Peterson 03-01-2023 HCV IgG IA Ql Non-Reactive Invalid Interpretation Code Non Reactive [facility] Comment on above: Result Comment: Perf ormed at: [facility] [id number] PhD Ross Wise Performed By: #### 7 [id number], 50956315, 18309045, 5397957, 6590145830, 026981136, 2446438789, 9159397, 428691951, 5416458 #### [facility] [address] [place] [address] HIV Screen 4th Generation wR fxon 03-01-2023 HIV 1+2 Ab+HIV1 p24 Ag IA Ql Non-Reactive Invalid Interpretation Code Non Reactive [facility] Comment on above: Result Comment: HIV Negative HIV-1/HIV-2 antibodies and HIV-1 p24 antigen were NOT detected. There is no laboratory evidence of HIV infection. Performed at: [place] [id number] [place], [place] [id number] PhD Ross Wise Performed By: #### 7 [id number], 36114157, 78069225, 5680681, 5197056022, 589875693, 3440837441, 3228209, 489556555, 8853761 #### [facility] [address] [place] [address] Hep Bs Agon 03-01-2023 HBV surface Ag IA Ql Negative Invalid Interpretation Code Negative [facility] Comment on above: Result Comment: Perf ormed at: [address] [id number] PhD Ross Wise Performed By: #### 7 47751036, 34581912, 31026827, 2775235, 9904359063, 126573824, 6890946549, 7170516, 019274980, 2119367 ####[facility] [address] [place] [address] RPR with Conf Rfxon 03-01-20 Reagin Ab RPR Ql (S) Non-Reactive Invalid Interpretation Code Non Reactive [facility] Comment on above: Result Comment: Perf ormed at: [address] [id number] PhD Ross Wise Performed By: #### 7 12851432, 39909158, 38588450, 2286970, 4791147548, 026841088, 3634779721, 4146649, 566361530, 0988019 #### [facility] [address] [place] [address] Rubella IgGon 03-01-2023 Rubella virus IgG Qn (S) 11.40 [IU]/mL Invalid Interpretation Code Immune >0.99 [facility] Comment on above: Result Comment: Non- immune <0.90 Equivocal 0.90 - 0.99 Immune >0.99 Performed at: [address] [id number] PhD Ross Wise Performed By: #### 7 [id number], 02790983, 98870160, 9018871, 5628109788, 826747301, 3123017499, 4764546, 929553033, 7374551 ####[facility] [address] [place] [address] Rubella IgMon 03-01-2023 Rubella virus IgM IA Qn (S) <20.0 Invalid Interpretation Code 0.0-19.9 [facility] Comment on above: Result Comment: Nega tive <20.0 Equivocal 20.0 - 24.9 Positive >24.9 Performed at: [facility] [id number] PhD Ross Wise Performed By: #### 7 77693566, 32322860, 57678662, 6892975, 1588638078, 555213201, 9785725652, 3532732, 943388811, 9680979 #### [facility] [address] [place] [address] ABO/Rhon 02-27-2023 ABO/Rh Positive Invalid Interpretation Code [facility] Comment on above: Performed By: #### 1 8252442, 6869017 ####[facility] [address] [place] [address] ABSCon 02-27-2023 ABSC Gel Interp Negative Normal [facility] Comment on above: Performed By: #### 1 2345076, 3092304 ####[facility] [address] [place] [address] BLOOD BANKOrdered By: Maxim Price on 02-27-2023 ABO/Rh Interp Positive Invalid Interpretation Code [facility] [place] Subsection ABSC Gel Interp Negative (02/27/23 4:43 PM) Normal [facility] [place] Subsection CBC w/Indiceson 02-27-2023 Erythrocyte distribution width (RBC) [Ratio] 12.8 % Normal 10.9-14.2 [facility] Comment on above: Performed By: #### 7 65050622, 80131262, 85765187, 5553892, 9567065217, 322900421, 2717973020, 1775788, 929114555, 4947519 #### [facility] [address] [place] [address] Hematocrit (Bld) [Volume fraction] 40.7 % Normal 34.0-46.0 [facility] Comment on above: Performed By: #### 7 37008864, 05535965, 92374496, 3302980, 6627440103, 741861075, 8899312525, 7007087, 848484670, 5549140 #### [facility] [address] [place] [address] Hemoglobin (Bld) [Mass/Vol] 14.0 g/dL Normal 12.0-16.0 [facility] Comment on above: Performed By: #### 7 82640834, 22686553, 85118310, 6471763, 6186158247, 595720045, 7844341683, 4727760, 181443000, 4812274 #### [facility] [address] [place] [address] MCH (RBC) [Entitic mass] 31.1 pg Normal 27.0-34.0 [facility] Comment on above: Performed By: #### 7 10363790, 97700150, 83190715, 8582134, 0976048741, 982872307, 9088086129, 7082297, 649779805, 8936754 #### [facility] [address] [place] [address] MCHC (RBC) [Mass/Vol] 34.4 g/dL Normal 31.4-36.0 [facility] Comment on above: Performed By: #### 7 19479147, 73693196, 14770631, 0301835, 1214924534, 576878006, 2201278320, 7634747, 492466554, 6108949 #### [facility] [address] [place] [address] MCV (RBC) [Entitic vol] 90.4 fL Normal 80.0-100.0 [facility] Comment on above: Performed By: #### 7 83531771, 29429479, 14002449, 2441683, 6827836897, 125871441, 6087249622, 4228152, 265813811, 5259519 #### [facility] [address] [place] [address] Platelet mean volume (Bld) [Entitic vol] 7.9 fL Normal 6.4-10.8 [facility] Comment on above: Performed By: #### 7 73380045, 90621359, 97909020, 8692453, 8488132700, 423002640, 8384268469, 1378406, 536129696, 6116564 #### [facility] [address] [place] [address] Platelets (Bld) [#/Vol] 312.0 E9/L Normal 150.0-500.0 [facility] Comment on above: Performed By: #### 7 06548535, 14203681, 00885439, 3017308, 0253605817, 444730340, 3505393994, 3536298, 763297067, 6983268 #### [facility] [address] [place] [address] RBC (Bld) [#/Vol] 4.5 E12/L Normal 4.3-5.9 [facility] Comment on above: Performed By: #### 7 41267830, 57151765, 74932476, 1842637, 0231087106, 931074475, 5096524247, 9738562, 463985946, 0066373 #### [facility] [address] [place] [address] WBC corrected for nucl RBC Auto (Bld) [#/Vol] 9.9 E9/L Normal 4.0-11.0 [facility] Comment on above: Performed By: #### 7 08072734, 95461934, 83424827, 0432579, 4327428689, 899377629, 3026928754, 0353360, 060109739, 7857983 #### [facility] [address] [place] [address] CHEMISTRYOrdered By: Cheko Segal on 02-27-2023 HbA1c (Bld) [Mass fraction] 5.0 % Normal <=5.9% [facility] ChemAutoSS CHEMISTRYOrdered By: SYSTEM SYSTEM on 02-27-2023 TSH Qn 2.85 m[IU]/L Normal 0.34 - 5.60 mcIU/mL [facility] Remisol Consent for Treatmenton 02-07 Consent for Treatment [id number] .[id number]:127 Normal [facility] HEMATOLOGYOrdered By: Maxim Price on 02-27-2023 Erythrocyte [...] 9.9 E9/L Normal 4.0 - 11.0 E9/L [facility] HemeAutoSS [id number] 02-27-2023 HbA1c (Bld) [Mass fraction] 5.0 % Normal <=5.9 [facility] Comment on above: Performed By: #### 7 06554302, 84476858, 53594298, 9479467, 9859766169, 196392055, 1251268196, 1928392, 277545163, 4371914 #### [facility] [address] [place] [address] Physician Orderon 02-27-2023 Physician Order [id number] .[id number]:127 Normal [facility] TSHon 02-27-2023 TSH Qn 2.85 m[IU]/L Normal 0.34-5.60 [facility] Comment on above: Performed By: #### 7 16879567, 69346016, 95507963, 9977538, 3709904590, 441704246, 2638578370, 7514152, 180895250, 8610771 #### [facility] [address] [place] [address] XR Ankle 3+ Views LTon 01-16 XR [...] AYLIN 01/16/2018 15:17Technologist: MLR Normal [facility] CBC with Differentialon 0 Basophils Auto #/vol (Bld) 0.10 thou/mcL Normal 0.00-0.20 [facility] Comment on above: Performed By: #### 6 9742-5 ####[facility] [address] [place], [place] Basophils/100 WBC Auto (Bld) 0.8 % Normal 0.0-2.0 [facility] Comment on above: Performed By: #### 6 9742-5 ####[facility] [address] [place], [place] Eosinophils 0.10 thou/mcL Normal 0.00-0.70 [facility] Comment on above: Performed By: #### 6 9742-5 ####[place] [address] [place], [place] Eosinophils/100 leukocytes 1.1 % Normal 0.0-7.0 [facility] Comment on above: Performed By: #### 6 9742-5 ####[place] [address], [place] Erythrocyte distribution width Entitic volume (RBC) 13.2 % Normal 11.0-14.8 [facility] Comment on above: Performed By: #### 6 9742-5 ####[place] [address] [place], [place] Erythrocytes (RBC) 4.66 million/mcL Normal 3.80-5.10 [facility] Comment on above: Performed By: #### 6 9742-5 ####[facility] [address], [place] Hematocrit (HCT) 41.6 % Normal 35.0-45.[address] [facility] Comment on above: Performed By: #### 6 9742-5 ####[facility] [address], [place] Hemoglobin mass conc (Bld) 14.5 g/dL Normal 12.0-16.0 [facility] Comment on above: Performed By: #### 6 9742-5 ####[facility] [address] [place], [place] Lymphocytes 1.70 thou/mcL Normal 1.00-4.80 [facility] Comment on above: Performed By: #### 6 9742-5 ####[place] [address] [place], [place] Lymphocytes/100 leukocytes 21.3 % Low 25.0-45.0 [facility] Comment on above: Performed By: #### 6 9742-5 ####[address] MCH 31.2 Picograms Normal 27.0-34.0 [facility] Comment on above: Performed By: #### 6 9742-5 ####[place] [address] MCHC mass conc (RBC) 35.0 g/dL Normal 32.0-36.0 [facility] Comment on above: Performed By: #### 6 9742-5 ####[address] MCV 89.3 fL Normal 80.0-97.0 [facility] Comment on above: Performed By: #### 6 9742-5 ####[address] Monocytes 0.50 thou/mcL Normal 0.00-0.90 [facility] Comment on above: Performed By: #### 6 9742-5 ####[address] Monocytes/100 leukocytes 6.7 % Normal 2.0-8.0 [facility] Comment on above: Performed By: #### 6 9742-5 ####[address] Neutrophils 5.50 thou/mcL Normal 1.80-7.70 [facility] Comment on above: Performed By: #### 6 9742-5 ####[address] Neutrophils/100 WBC Auto (Bld) 70.1 % Normal 39.0-75.0 [facility] Comment on above: Performed By: #### 6 9742-5 ####[facility] [address], [place] Platelet mean volume Entitic volume (Bld) 8.1 FL Normal 6.2-12.1 [facility] Comment on above: Performed By: #### 6 9742-5 ####[facility] [address] [place] Platelets 314 thou/mcL Normal 142-424 [facility] Comment on above: Performed By: #### 6 9742-5 ####[facility] [address] [place] WBC (Leukocytes) 7.8 thou/mcL Normal 4.5-13.5 [facility] Comment on above: Performed By: #### 6 9742-5 ####[facility] [address] Comprehensive Metabolic Pane nilesh 09-12-2017 Alanine aminotransferase (ALT) 14 Units/L Normal 14-63 [facility] Comment on above: Performed By: #### 6 9405-9, 34705-6, 3040-3, 33630-8 ####[facility] [address] [place] Albumin 4.3 g/dL Normal 3.5-4.8 [facility] Comment on above: Performed By: #### 6 9405-9, 90156-6, 3040-3, 55797-6 ####[facility] [address], [place] Alkaline phosphatase (ALP) 78 Units/L Normal 32-91 [facility] Comment on above: Performed By: #### 6 9405-9, 23863-2, 3040-3, 85319-2 ####[facility] [address] Anion gap 9.0 mmol/L Normal 6.0-18.0 [facility] Comment on above: Result Comment: PLEA SE NOTE:The calculated Anion Gap(AGAP) does not include Potassium. Performed By: #### 6 9405-9, 29952-9, 3040-3, 32523-4 ####[facility] [address], [place] Aspartate aminotransferase (AST) 17 Units/L Normal 15-41 [facility] Comment on above: Performed By: #### 6 9405-9, 51713-2, 3040-3, 01641-4 ####[facility] [address] Bilirubin (total) 0.7 mg/dL Normal 0.3-1.[address] [facility] Comment on above: Performed By: #### 6 9405-9, 06924-3, 3040-3, 93825-1 ####[facility] [address] [place] Calcium 9.8 mg/dL Normal 8.9-10.3 [facility] Comment on above: Performed By: #### 6 9405-9, 69896-3, 3040-3, 37681-3 ####[facility] [address] [place] Chloride 103 mmol/L Normal 98-107 [facility] Comment on above: Performed By: #### 6 9405-9, 85269-5, 3040-3, 09248-9 ####[facility] [address] [place] CO2 29 mmol/L Normal 22-32 [facility] Comment on above: Performed By: #### 6 9405-9, 11935-6, 3040-3, 27583-8 ####[facility] [address] [place] Creatinine 0.87 mg/dL Normal 0.60-1.30 [facility] Comment on above: Performed By: #### 6 9405-9, 38391-1, 3040-3, 75617-1 ####[facility] [address] Glucose mass conc 89 mg/dL Normal 70-[address] [facility] Comment on above: Performed By: #### 6 9405-9, 84523-1, 3040-3, 81800-0 ####[facility] [address] [place] Potassium molar conc 5.4 mmol/L High 3.6-5.1 [facility] Comment on above: Performed By: #### 6 9405-9, 02799-3, 3040-3, 30167-8 ####[facility] [address] Protein 6.7 g/dL Normal 6.1-7.9 [facility] Comment on above: Performed By: #### 6 9405-9, 81520-1, 3040-3, 12325-0 ####[facility] [address] Sodium 141 mmol/L Normal 136-145 [facility] Comment on above: Performed By: #### 6 9405-9, 74571-7, 3040-3, 83568-2 ####[facility] [address] Urea nitrogen mass conc (BldV) 10 mg/dL Normal 8-20 [facility] Comment on above: Performed By: #### 6 9405-9, 84269-4, 3040-3, 83392-0 ####[facility] [address] [place], [place] GFRaaon 09-12-2017 eGFR (black) mL/min/{1.73_m2} Normal [facility] Comment on above: Result Comment: The MDRD equation has not been validated for those over 70 years, women, patients with serious co-morbid conditions, or with extremes of bodysize, muscle mass of nutritional status. Performed By: #### 6 9405-9, 43112-4, 3040-3, 82400-1 ####[facility] [address], [place] GFRbbon 09-12-2017 eGFR (non-black) mL/min/{1.73_m2} Normal [facility] Comment on above: Performed By: #### 6 9405-9, 21984-5, 3040-3, 47476-6 ####[facility] [address] [place] Lipaseon 09-12-2017 Lipase 16 Units/L Low 22-51 [facility] Comment on above: Performed By: #### 6 9405-9, 41740-5, 3040-3, 28534-9 ####[facility] [address] [place], [place] Vital Signs Date Time Vital Sign Value Performing Clinician Facility 08-20-2023 10:00-0500 Body mass index (BMI) [Ratio] 27 kg/m2 Karla THAPA Work Phone: [facility] 08-20-2023 10:00-0500 Body weight 75.3 kg Karla Muhammad PA Work Phone: [facility] 08-20-2023 10:00-0500 Diastolic blood pressure 62 mm[Hg] Karla Muhammad PA Work Phone: [facility] 08-20-2023 10:00-0500 Systolic blood pressure 110 mm[Hg] Karla Muhammad PA Work Phone: [facility] 03-09-2017 18:37-0400 BMI (Body Mass Index) 22.43 kg/m2 [facility] Work Phone: 03-09-2017 18:37-0400 Body Temperature 98.49 [degF] [facility] Work Phone: 03-09-2017 18:37-0400 BP Diastolic 76 mm[Hg] Deirdre Aleman [employer] Work Phone: 03-09-2017 18:37-0400 BP Systolic 127 mm[Hg] Deirdre Aleman [facility] Work Phone: 03-09-2017 18:37-0400 Height 170.2 cm Deirdre Aleman [facility] Work Phone: 03-09-2017 18:37-0400 Pulse (Heart Rate) 61 /min Deirdre Aleman [employer] Work Phone: 03-09-2017 18:37-0400 Pulse Oximetry 98 % [facility] Work Phone: 03-09-2017 18:37-0400 Respiratory Rate 18 /min Deirdre Aleman [employer] Work Phone: 03-09-2017 18:37-0400 Weight 64.95 kg Deirdre Aleman [facility] Work Phone: Encounters Encounter Date Encounter Type Care Provider Facility Start: 08-27-2023 End: 08-27-2023 ambulatory ROSSY AMITA Not Available Start: 08-20-2023 End: 08-20-2023 ambulatory KARLA SABINA Not Available Start: 08-20-2023 End: 08-20-2023 Office outpatient visit 15 minutes Karla THAPA Work Phone: [facility] Comment on above: Third trimester preg garry Start: 08-02-2023 End: 08-02-2023 ambulatory ROSSY AMITA Not Available Start: 07-16-2023 End: 07-16-2023 ambulatory KARLA SABINA Not Available Start: 07-03-2023 End: 07-03-2023 ambulatory ROSSY AMITA Not Available Start: 06-20-2023 End: 06-20-2023 ambulatory KARLA SABINA Not Available Start: 05-23-2023 End: 05-23-2023 ambulatory CHRISTOPHER A DONNAMILLER Not Available Start: 05-22-2023 End: 05-22-2023 ambulatory ROSSY AMITA Not Available Start: 02-27-2023 End: 02-28-2023 ambulatory Rossy R AMITA [place] [place] Start: 02-27-2023 End: 02-27-2023 Patient encounter procedure Rossy R AMITA [facility] Start: 01-17-2018 End: 01-17-2018 Patient encounter BROCK GUEVARA Facility:[facility] Start: 09-13-2017 End: 09-13-2017 Patient encounter MAXIM LANDAVERDE Facility:[facility] Start: 03-09-2017 End: 03-09-2017 Ambulatory PHYSICIAN NO [facility] Start: 03-09-2017 End: 03-09-2017 Office outpatient new 30 minutes Deirdre Aleman Work Phone: [facility] Comment on above: STD exposure (Primar y Dx) Procedures Date Procedure Procedure Detail Performing Clinician Start: 08-20-2023 Urnls dip stick/tabl et rgnt non-auto w/o micrscp Karla THAPA Work Phone: Start: 03-21-2023 Cytp cerv/vag auto t hin layer prep mnl screen Rossylondon Ayers DO Work Phone: None (qualifier value) Rossy AYERS Plan of Treatment Date Care Activity Detail Author Start: 01-06-2024 Influenza vaccination Influenza Vacc ine (#1) [facility] Comment on above: Postponed from 03/09 (Patient Refused) Start: 08-27-2023 End: 08-27-2023 Patient encounter procedure 08/27/2023 8:40 AM EST Routine [facility] [address] [place] [address] Rossy Ayers, DO [address] [place] [address] [facility] Start: 03-09-2017 SEQUENTIAL INFLUENZA VACCINE (#1) SEQUENTIAL INFLUENZA VACCINE (#1) [facility] Work Phone: Start: 2008 HPV VACCINES (1 of 3 - Female 3 Dose Series) HPV VACCINES (1 of 3 - Female 3 Dose Series) [facility] Work Phone: Start: 1995 TETANUS EVERY 10 YR TETANUS EVERY 10 YR [facility] Work Phone: Chlamydia/GC/Trichom katarzyna s Amplified RNA Chlamydia/GC/Trichomona s Amplified RNA Routine STD exposure Ordered: 03/09/2017 [facility] Work Phone: Comment on above: Ordered: 03/09/2017 Chlamydia/Gonorrhoea e Amplified RNA Chlamydia/Gonorrhoeae Amplified RNA Routine STD exposure Ordered: 03/09/2017 [facility] Work Phone: Comment on above: Ordered: 03/09/2017 Trichomonas vaginali s Amplified RNA Trichomonas vaginalis Amplified RNA Routine STD exposure Ordered: 03/09/2017 [facility] Work Phone: Comment on above: Ordered: 03/09/2017 Immunizations Immunization Date Immunization Notes Care Provider Calvin angel 08-11-2020 tetanus toxoid, redu chris diphtheria toxoid, and acellular pertussis vaccine, adsorbed Rossy AYERS [facility] 09-10-2019 influenza virus vaccine, unspecified formulation Karla THAPA Work Phone: [facility] Healthcare Payers Date Payer Category Payer Unknown 2015 Unknown [id number] 1995 Unknown [id number] [id number] 1997 Unknown [id number] 2.16.84 [id number] 1997 Unknown [id number] 2.16.84 [id number] 1997 Unknown [id number] 2.16.84 [id number] 1997 Unknown [id number] 2.16.84 [id number] 1997 Unknown [id number] .[id number] 1997 Unknown [id number] .[id number] 1997 Unknown [id number] [id number] 1997 Unknown [id number] Social History Date Type Detail Facility Start: 03-09-2017 End: 03-10-2023 Tobacco smoking status MEIS Never smoker [facility] Start: 1995 Sex Assigned At Not on file [facility] Work Phone: Tobacco smoking status No Smokin g Status Entered [facility] Start: 05-23-2023 Sex Assigned At Female F [facility] Start: 03-10-2023 Tobacco use and exposure Smokeless tobacco non-user [facility] Start: 08-20-2023 Alcohol intake Ex-drinker (finding) [facility] Start: 05-23-2023 History of Social function [facility] Within the last year , have you been afraid of your partner or ex-partner? No [facility] Are you now , , , , never or living with a partner? Never [facility] How often to you hav e a drink containing alcohol? Never [facility] How many standard drinks containing alcohol do you have on a typical day? Patient does not drink [facility] How hard is it for y ou to pay for the very basics like food, housing, medical care, and heating Somewhat hard [facility] Do you feel stress - tense, restless, nervous, or anxious, or unable to sleep at night because your mind is troubled all the time - these days [OSQ] Not at all [facility] (I/We) worried wheth er (my/our) food would run out before (I/we) got money to buy more. Never true [facility] Start: 03-10-2023 Alcohol Comment Alcohol: 1 or 2 drinks on a typical day/monthly or less Caffeine: soda/pop, coffee daily [facility] Start: 12-31-2022 [facility] Start: 09-20-2022 Gender identity Identifies as female gender (finding) [facility] History of Present illness Narrative 08-20-2023 ALANIS Zavala - 08/20/2023 9:50 AM EST Note Date & Type Note Facility 08-20-2023 History of Presen t illness Narrative Reason for Appointment: Patient ID: Joselyn Matthews is a 28 y.o. female who presents for Routine Visit Patient presents today for Return OB appointment. Current Medications: has a current medication list which includes the following prescription(s): mv-min-fe fum-fa-dha. Medical History: Active Ambulatory Problems Diagnosis Date Noted No Active Ambulatory Problems Resolved Ambulatory Problems Diagnosis Date Noted No Resolved Ambulatory Problems Past Medical History: Diagnosis Date Allergic Family History Problem Relation Name Age of Onset Nephrolithiasis Mother Cancer Maternal Grandmother Niki Social History Tobacco Use Smoking status: Never Smokeless tobacco: Never Substance Use Topics Alcohol use: Not Currently Comment: Alcohol: 1 or 2 drinks on a typical day/monthly or less Caffeine: soda/pop, coffee daily Drug use: Not Currently Frequency: 2.0 times per week Types: Marijuana Past Surgical History: Procedure Laterality Date OTHER SURGICAL HISTORY Nexplanon inserted (12/14/20), removed (04/22/20) PAP SMEAR 04/06/2020 nilm Allergies Allergen Reactions Seasonal Ic [Octacosanol] Review of Systems: Review of Systems Constitutional: Negative. HENT: Negative. Eyes: Negative. Respiratory: Negative. Cardiovascular: Negative. Gastrointestinal: Negative. Genitourinary: Negative. Musculoskeletal: Negative. Skin: Negative. Neurological: Negative. All other systems reviewed and are negative. Hematological: Negative. Endocrine: Negative. Allergic/Immunologic: Negative. Objective Physical Exam Constitutional: Appearance: Normal appearance. She is normal weight. HENT: Head: Normocephalic. Cardiovascular: Rate and Rhythm: Normal rate. Pulses: Normal pulses. Pulmonary: Effort: Pulmonary effort is normal. Breath sounds: Normal breath sounds. Abdominal: Palpations: Abdomen is soft. Musculoskeletal: General: Normal range of motion. Neurological: General: No focal deficit present. Mental Status: She is alert and oriented to person, place, and time. Psychiatric: Mood and Affect: Mood normal. Behavior: Behavior normal. Thought Content: Thought content normal. Judgment: Judgment normal. Vitals and nursing note reviewed. Vitals: Estimated body mass index is 27 kg/m as calculated from the following: Height as of 01/07/21: 5' 5.75 . Weight as of this encounter: 166 lb. BP: 110/62 Patient's last menstrual period was 12/17/2022. Assessment/Plan Encounter Diagnosis Name Primary? Third trimester Patient presents today for a routine obstetrics appointment. Patient is currently 35w1d . Patient states she is doing well but has complaints of being tired due to current . Patient has verbalizes frequent movement. labor precautions was discussed/given and patient was instructed to perform kick counts three times a day. GBS next week, pt aware Follow Up: Patient is to return to office in 1 week for routine OB appointment. Documented by ALANIS Zavala on behalf of: ALANIS Zavala documented in this encounter [facility] Healthcare Evaluation + Plan note 02-27-2023 Note Date & Type Note Facility 02-27-2023 Evaluation + Plan note Diagnostic Tests PendingUrine Culture 02/27/23HIV Screen 4th Generation wRfx 02/27/23HCV Antibody RFX to Quant PCR 02/27/23Hepatitis B Surface Antigen 02/27/23RPR with Conf Rfx 02/27/23Rubella Antibody IgG 02/27/23Rubella Antibody IgM 02/27/23 [facility] Evaluation note Note Date & Type Note Facility Evaluation note Diagnosis Third trimester state, incidental documented in this encounter [facility] Hospital course Narrative Note Date & Type Note Facility Hospital course Narrative No data available for this section [facility] Hospital Discharge instructions Note Date & Type Note Facility Hospital Discharge instructions No data available for this section [facility] Progress note Note Date & Type Note Facility Progress note No data available for this section [facility] Summary Purpose Family History No Family History Records FoundNo Family History Records FoundNo Family History Records FoundNo Family History Records Found Advance Directives No Advanced Directives Records FoundNo Advanced Directives Records FoundNo Advanced Directives Records FoundNo Advanced Directives Records Found Instructions * Patient Instructions - Deirdre Aleman PA-Mehdi - 03/09/2017 6:54 PM EDT Follow up with [facility], If worse go to ED for further [...] Log into your personal health record on [email or web address] and enter M049 in the Education box to learn more about Exposure to Sexually Transmitted Infections: Care Instructions. Current as of: December 03, 2015 Content Version: 11.2 5426-1855 [employer]. Care instructions adapted under license by your healthcare professional. If you have questions about a medical condition or this instruction, always ask your healthcare professional. [employer] disclaims any warranty or liability for your use of this information. in this encounter History of Present Illness * Deirdre Aleman PA-C - 03/09/2017 6:50 PM EDT Formatting of this note may be different from the original. PATIENT NAME: Joselyn Matthews [facility] [address] [facility] [address] : 1995 DATE OF VISIT: 03/09/2017 #: [...] section and content) DATE CREATED AUTHOR 01/02/2018 [facility] DATE CREATED AUTHOR AUTHOR'S ORGANIZ ATION 01/17/2018 [facility] DATE CREATED AUTHOR AUTHOR'S ORGANIZ ATION 03/02/[address] [facility] DATE CREATED AUTHOR AUTHOR'S ORGANIZ ATION 08/27/2023 [facility] EPIC Reason for Visit (unrecogniz ed section and content) Reason Comments Exposure to STD boyfriend treated fo r chlamydia today Reason Comments Routine Visit Patient Care team informatio n (unrecognized section and content) [employer] Relationship Specialty Start Date End Date Duran Cleveland MD [address] [place] [address] PCP - General Family Medicine 01/29/23 FOR RECORDS PERTAINING TO PATIENTS WHO ARE [...] BE BASED ON THE PRIMARY CLINICAL RECORDS. [facility] [employer] [facility]. provides no warranty or guarantee of the accuracy or completeness of information in this document.
== END 2023-08-27 20:30 | disposition home or self-care (01) ==
LOC: LAB 20:29
PROVIDERS: Family Provider Family Medicine; Visit Provider Obstetrics & Gynecology
DX: Z34.93 Encounter for supervision of normal pregnancy, unspecified, third trimester (principal)
CPT/HCPCS: 87081

== ENCOUNTER 2023-09-10 13:41 | Outpatient (OUT) | payer MEDICAID, SELFPAY ==
--- NOTE | 2023-09-10 13:44 | US_ITS ---
[address] [address] Patient Name: JOSELYN MATTHEWS MRN: [id number] date: 1995 Sex: F Assigned Patient Location: [facility] Current Patient Location: [facility] Accession/Order Number: [id number] Exam Date: 09/10/2023 13:44 Report Date: 09/10/2023 14:54 At the request of: ROSSY LEVI Procedure: US OB growth EXAMINATION: US OB growth HISTORY: LGA COMPARISON: No relevant comparison available. FINDINGS: Heart Rate: 138.0 bpm Amniotic Fluid Volume: 14.8 cm Number: 1.0 Position: Cephalic presentation, longitudinal lie Maximum Vertical Pocket: 4.7 cm cm 1.3 cm cm 5.3 cm cm 3.5 cm cm BIOMETRY: BPD: 9.2 cm cm; 37 weeks 3 days; 58% HC: 33.2 cmcm; 37 weeks 6 days , 25% AC: 34.1 cm cm; 38 weeks 0 days, 65% FL: 7.1 cm cm; 36 weeks 2 days; 11.5 % % EFW: 3232.2 grams, 7 lbs. 2 oz., 47% FL/AC: 20.7 FL/BPD: 76.6 HC/AC: 1.0 GESTATIONAL AGE: Age by EDC: 38 weeks 1 days AMGGI by EDC: 09/23/2023 Age by US: 37 weeks 3 days MAGGI by US: 09/28/2023 US/US OB growth IMPRESSION: Normal interval growth Electronically authenticated by: ERICA HARKINS Date: 09/10/2023 14:54
--- OUTSIDE RECORDS SUMMARY | 2023-09-10 14:00 | XMS_ITS | CCD ---
Author Name Unknown Address [address] [place] [address] Organization [facility] Care Team Providers Care Assistant Professor Of Drama Name Role Phone NO, PHYSICIAN Unavailable Unavailable DEIRDRE ALEMAN Unavailable Unavailable SAIMA, MAXIM Unavailable Unavailable SAIMA, MAXIM Unavailable Unavailable BROCK GUEVARA Unavailable Unavailable SAIMA, MAXIM Unavailable Unavailable Unavailable Primary Care Provider UnavailDuran Saucedo Primary Care Physician Rossy AYERS Attending Unavailable Rossy AYERS Admitting Unavailable Duran Cleveland MD Primary Care Provider [phone] ROSSY AYERS Attending Unavailable KARLA MUHAMMAD Attending Unavailable CHRISTOPHER LAINEZ Attending Unavailab le ROSSY AYERS Attending Unavailable KARLA MUHAMMAD Attending Unavailable ROSSY AYERS Attending Unavailable KARLA MUHAMMAD Attending Unavailable ROSSY AYERS Attending Unavailable Allergies Allergy Classification Reported Allergen(s) Allergy Type Date of Onset Reaction(s) Facility (2 sources) Octacosanol Propensity to adverse reactions 3 [facility] Work Phone: Medications Current Medications Medication Drug Class(es) Dates Sig (Normalized) Sig (Original) acetaminophen 325 mg / HYDROcodone bitartrate 5 mg oral tablet (1 source) Opioid Agonist Start: 08-11-2020 [place] 325 mg-5 mg oral tablet 1 tab(s), [...] UA Negative Negative - 4(70) +++ mg/dL [facility] Blood, UA Negative Negative - 50 Maxime/mcL [facility] Clarity, UA Clear [facility] Color, UA Yellow [facility] Glucose, UA Negative Negative - 2000(110) ++++ mg/dL [facility] Interpretation and review of laboratory results Abnormal [facility] Ketones, UA Negative Negative - 160(16) ++++ mg/dL [facility] Leukocytes, UA Trace Negative - 500+++ Cassidy/mcL [facility] Nitrite, UA Negative Negative - Positive [facility] pH, UA 6.5 5 - 9 [facility] Protein, UA Negative Negative - 2000(20) ++++ mg/dL [facility] Spec Grav, UA 1.020 1 - 1.03 [facility] Urobilinogen, UA 0.2 0.2 - 12 mg/dL [facility] Cervical or vaginal smear or scraping studyOrdered By: Shivani Garcia on 03-21-2023 [facility] .Interpretation:on 3 HCV Ab IA Ql Comment Invalid Interpretation Code [facility] Comment on above: Result Comment: Not infected with HCV unless early or acute infection is suspected (which may be delayed in an immunocompromised individual), or other evidence exists to indicate HCV infection. Performed at: [facility] [id number] PhD Ross Wise Performed By: #### 7 [id number], [id number], 07347845, 9382079, 7771363482, 601044575, [id number], 2847891, 973558373, 4771525 #### [facility] [address] [place] [address] C Urineon 03-01-2023 Bacteria identified Cx Nom [...] Locations R1: This test was performed at: [facility], [address] [place] [address], [address]- , , Normal [facility] Comment on above: Performed By: #### 2 [id number] ####[facility] [address] [place] [address] HCV Antibody RFX to Quant PC Peterson 03-01-2023 HCV IgG IA Ql Non-Reactive Invalid Interpretation Code Non Reactive [facility] Comment on above: Result Comment: Perf ormed at: [facility] [id number] PhD Ross Wise Performed By: #### 7 [id number], 22881336, 56344183, 0996254, 0169796328, 057157789, 9838851628, 8884626, 907490623, 0261105 #### [facility] [address] [place] [address] HIV Screen 4th Generation wR fxon 03-01-2023 HIV 1+2 Ab+HIV1 p24 Ag IA Ql Non-Reactive Invalid Interpretation Code Non Reactive [facility] Comment on above: Result Comment: HIV Negative HIV-1/HIV-2 antibodies and HIV-1 p24 antigen were NOT detected. There is no laboratory evidence of HIV infection. Performed at: [place] [id number] [place], [place] [id number] PhD Ross Wise Performed By: #### 7 [id number], 93363493, 33071439, 3722141, 7569946649, 821685297, 6915877870, 0664793, 330505188, 1544375 #### [facility] [address] [place] [address] Hep Bs Agon 03-01-2023 HBV surface Ag IA Ql Negative Invalid Interpretation Code Negative [facility] Comment on above: Result Comment: Perf ormed at: [address] [id number] PhD Ross Wise Performed By: #### 7 [id number], 69833898, 66392590, 5791343, 7197878478, 534933105, 9732273029, 8234957, 484420471, 8754603 ####[facility] [address] [place] [address] RPR with Conf Rfxon 03-01-20 Reagin Ab RPR Ql (S) Non-Reactive Invalid Interpretation Code Non Reactive [facility] Comment on above: Result Comment: Perf ormed at: [address] [id number] PhD Ross Wise Performed By: #### 7 21079684, 15650436, 08696915, 9219019, 0084637997, 399136185, 7952499870, 7146512, 398201016, 1769136 #### [facility] [address] [place] [address] Rubella IgGon 03-01-2023 Rubella virus IgG Qn (S) 11.40 [IU]/mL Invalid Interpretation Code Immune >0.99 [facility] Comment on above: Result Comment: Non- immune <0.90 Equivocal 0.90 - 0.99 Immune >0.99 Performed at: [address] [id number] PhD Ross Wise Performed By: #### 7 [id number], 99705609, 20889799, 5757618, 0463894467, 783525072, 6560384995, 8547041, 291979324, 8393321 ####[facility] [address] [place] [address] Rubella IgMon 03-01-2023 Rubella virus IgM IA Qn (S) <20.0 Invalid Interpretation Code 0.0-19.9 [facility] Comment on above: Result Comment: Nega tive <20.0 Equivocal 20.0 - 24.9 Positive >24.9 Performed at: [facility] [id number] PhD Ross Wise Performed By: #### 7 55981013, 07443891, 58571377, 4976368, 4421464584, 956200725, 3758630440, 6531444, 790275876, 2528973 #### [facility] [address] [place] [address] ABO/Rhon 02-27-2023 ABO/Rh Positive Invalid Interpretation Code [facility] Comment on above: Performed By: #### 1 7620878, 2286343 ####[facility] [address] [place] [address] ABSCon 02-27-2023 ABSC Gel Interp Negative Normal [facility] Comment on above: Performed By: #### 1 1099261, 1120809 ####[facility] [address] [place] [address] BLOOD BANKOrdered By: Maxim Price on 02-27-2023 ABO/Rh Interp Positive Invalid Interpretation Code [facility] BB Subsection ABSC Gel Interp Negative (02/27/23 4:43 PM) Normal [facility] BB Subsection CBC w/Indiceson 02-27-2023 Erythrocyte distribution width (RBC) [Ratio] 12.8 % Normal 10.9-14.2 [facility] Comment on above: Performed By: #### 7 02750181, 83316830, 58000868, 1973049, 4268013426, 970355968, 1998002191, 0926393, 620124482, 0697836 #### [facility] [address] [place] [address] Hematocrit (Bld) [Volume fraction] 40.7 % Normal 34.0-46.0 [facility] Comment on above: Performed By: #### 7 83672004, 46692073, 76904870, 6223096, 3123347117, 441160440, 0928137857, 0106714, 324205574, 6439675 #### [facility] [address] [place] [address] Hemoglobin (Bld) [Mass/Vol] 14.0 g/dL Normal 12.0-16.0 [facility] Comment on above: Performed By: #### 7 28479512, 83286592, 71636443, 9524824, 7482328560, 670075373, 8286770908, 5713037, 518785549, 6452884 #### [facility] [address] [place] [address] MCH (RBC) [Entitic mass] 31.1 pg Normal 27.0-34.0 [facility] Comment on above: Performed By: #### 7 40163498, 68662324, 17961326, 8331492, 3745704541, 720449610, 1105320782, 5749886, 195664599, 3986939 #### [facility] [address] [place] [address] MCHC (RBC) [Mass/Vol] 34.4 g/dL Normal 31.4-36.0 [facility] Comment on above: Performed By: #### 7 35279971, 63781565, 38295631, 2039983, 7314287746, 636910066, 4303822422, 3130207, 465162955, 8567768 #### [facility] [address] [place] [address] MCV (RBC) [Entitic vol] 90.4 fL Normal 80.0-100.0 [facility] Comment on above: Performed By: #### 7 24013923, 48532079, 29937293, 8248330, 3075187363, 791863107, 5407317391, 3324814, 834548719, 3869874 #### [facility] [address] [place] [address] Platelet mean volume (Bld) [Entitic vol] 7.9 fL Normal 6.4-10.8 [facility] Comment on above: Performed By: #### 7 68743063, 16782965, 35289397, 9275105, 9870174486, 562643283, 8126052897, 8849376, 182381349, 0078859 #### [facility] [address] [place] [address] Platelets (Bld) [#/Vol] 312.0 E9/L Normal 150.0-500.0 [facility] Comment on above: Performed By: #### 7 66447718, 36122978, 15386470, 9292059, 0612951907, 795147759, 6090965154, 7236980, 887604992, 6922269 #### [facility] [address] [place] [address] RBC (Bld) [#/Vol] 4.5 E12/L Normal 4.3-5.9 [facility] Comment on above: Performed By: #### 7 02996989, 00018915, 13571167, 8139002, 2390893996, 268609316, 8587935566, 4266341, 195361164, 6097544 #### [facility] [address] [place] [address] WBC corrected for nucl RBC Auto (Bld) [#/Vol] 9.9 E9/L Normal 4.0-11.0 [facility] Comment on above: Performed By: #### 7 85318523, 14625965, 21931925, 3148037, 7551895436, 669825148, 2059814228, 4923161, 008831471, 1358448 #### [facility] [address] [place] [address] CHEMISTRYOrdered By: Cheko Segal on 02-27-2023 HbA1c (Bld) [Mass fraction] 5.0 % Normal <=5.9% [facility] ChemAutoSS CHEMISTRYOrdered By: SYSTEM SYSTEM on 02-27-2023 TSH Qn 2.85 m[IU]/L Normal 0.34 - 5.60 mcIU/mL [facility] Remisol Consent for Treatmenton 02-07 Consent for Treatment [id number]#1 .00CD:127 Normal [facility] HEMATOLOGYOrdered By: Maxim Price on 02-27-2023 [...] Normal 4.0 - 11.0 E9/L [facility] HemeAutoSS TacL4cgd 02-27-2023 HbA1c (Bld) [Mass fraction] 5.0 % Normal <=5.9 [facility] Comment on above: Performed By: #### 7 06657487, 81973359, 56085646, 0857768, 6544948655, 621509484, 2377243268, 2653222, 950377918, 9948957 #### [facility] [address] [place] [address] Physician Orderon 02-27-2023 Physician Order [id number]#1 .00CD:127 Normal [facility] TSHon 02-27-2023 TSH Qn 2.85 m[IU]/L Normal 0.34-5.60 [facility] Comment on above: Performed By: #### 7 91240529, 85904602, 38048082, 6435840, 5048681071, 687430008, 0508775066, 7235057, 768563924, 2951449 #### [facility] [address] [place] [address] XR Ankle 3+ Views LTon 01-16 XR [...] 15:17Transcribed by: AYLIN 01/16/2018 15:17Technologist: MLR Normal [facility] CBC with Differentialon 0 Basophils Auto #/vol (Bld) 0.10 thou/mcL Normal 0.00-0.20 [facility] Comment on above: Performed By: #### 6 9742-5 ####[facility] [address] [place], [place] Basophils/100 WBC Auto (Bld) 0.8 % Normal 0.0-2.0 [facility] Comment on above: Performed By: #### 6 9742-5 ####[facility] [address] [place], [place] Eosinophils 0.10 thou/mcL Normal 0.00-0.70 [facility] Comment on above: Performed By: #### 6 9742-5 ####[place] [address] [place], [place] Eosinophils/100 leukocytes 1.1 % Normal 0.0-7.0 [facility] Comment on above: Performed By: #### 6 9742-5 ####[place] [address], [place] Erythrocyte distribution width Entitic volume (RBC) 13.2 % Normal 11.0-14.8 [facility] Comment on above: Performed By: #### 6 9742-5 ####[place] [address] [place], [place] Erythrocytes (RBC) 4.66 million/mcL Normal 3.80-5.10 [facility] Comment on above: Performed By: #### 6 9742-5 ####[facility] [address], [place] Hematocrit (HCT) 41.6 % Normal 35.0-45.0 [facility] Comment on above: Performed By: #### 6 9742-5 ####[facility] [address], [place] Hemoglobin mass conc (Bld) 14.5 g/dL Normal 12.0-16.0 [facility] Comment on above: Performed By: #### 6 9742-5 ####[facility] [address] [place], [place] Lymphocytes 1.70 thou/mcL Normal 1.00-4.80 [facility] Comment on above: Performed By: #### 6 9742-5 ####[place] [address] [place], [place] Lymphocytes/100 leukocytes 21.3 % Low 25.0-45.0 [facility] Comment on above: Performed By: #### 6 9742-5 ####[address] MCH 31.2 Picograms Normal 27.0-34.0 [facility] Comment on above: Performed By: #### 6 9742-5 ####[place] [address] MCHC mass conc (RBC) 35.0 g/dL Normal 32.0-36.0 [facility] Comment on above: Performed By: #### 6 9742-5 ####[address] MCV 89.3 fL Normal 80.0-97.0 [facility] Comment on above: Performed By: #### 6 9742-5 ####[address] Monocytes 0.50 thou/mcL Normal 0.00-0.90 [facility] Comment on above: Performed By: #### 6 9742-5 ####[address] Monocytes/100 leukocytes 6.7 % Normal 2.0-8.0 [facility] Comment on above: Performed By: #### 6 9742-5 ####[address] Neutrophils 5.50 thou/mcL Normal 1.80-7.70 [facility] Comment on above: Performed By: #### 6 9742-5 ####[address] Neutrophils/100 WBC Auto (Bld) 70.1 % Normal 39.0-75.0 [facility] Comment on above: Performed By: #### 6 9742-5 ####[facility] [address], [place] Platelet mean volume Entitic volume (Bld) 8.1 FL Normal 6.2-12.1 [facility] Comment on above: Performed By: #### 6 9742-5 ####[facility] [address], [place] Platelets 314 thou/mcL Normal 142-424 [facility] Comment on above: Performed By: #### 6 9742-5 ####[facility] [address] [place] WBC (Leukocytes) 7.8 thou/mcL Normal 4.5-13.5 [facility] Comment on above: Performed By: #### 6 9742-5 ####[facility] [address] [place] Comprehensive Metabolic Pane nilesh 09-12-2017 Alanine aminotransferase (ALT) 14 Units/L Normal 14-63 [facility] Comment on above: Performed By: #### 6 9405-9, 93830-2, 3040-3, 79542-6 ####[facility] [address] [place] Albumin 4.3 g/dL Normal 3.5-4.8 [facility] Comment on above: Performed By: #### 6 9405-9, 91129-4, 3040-3, 49931-9 ####[facility] [address] [place] Alkaline phosphatase (ALP) 78 Units/L Normal 32-91 [facility] Comment on above: Performed By: #### 6 9405-9, 86921-4, 3040-3, 73550-4 ####[facility] [address] [place] Anion gap 9.0 mmol/L Normal 6.0-18.0 [facility] Comment on above: Result Comment: PLEA SE NOTE:The calculated Anion Gap(AGAP) does not include Potassium. Performed By: #### 6 9405-9, 68756-0, 3040-3, 85724-5 ####[facility] [address], [place] Aspartate aminotransferase (AST) 17 Units/L Normal 15-41 [facility] Comment on above: Performed By: #### 6 9405-9, 06782-0, 3040-3, 78104-8 ####[facility] [address] [place] Bilirubin (total) 0.7 mg/dL Normal 0.3-1.2 [facility] Comment on above: Performed By: #### 6 9405-9, 77831-9, 3040-3, 82079-5 ####[facility] [address] [place] Calcium 9.8 mg/dL Normal 8.9-10.3 [facility] Comment on above: Performed By: #### 6 9405-9, 42104-6, 3040-3, 25864-8 ####[facility] [address] [place] Chloride 103 mmol/L Normal 98-107 [facility] Comment on above: Performed By: #### 6 9405-9, 18383-4, 3040-3, 46429-6 ####[facility] [address] [place] CO2 29 mmol/L Normal 22-32 [facility] Comment on above: Performed By: #### 6 9405-9, 73158-2, 3040-3, 72943-4 ####[facility] [address] [place] Creatinine 0.87 mg/dL Normal 0.60-1.30 [facility] Comment on above: Performed By: #### 6 9405-9, 03661-2, 3040-3, 23285-5 ####[facility] [address] [place] Glucose mass conc 89 mg/dL Normal 70-110 [facility] Comment on above: Performed By: #### 6 9405-9, 39712-5, 3040-3, 27960-2 ####[facility] [address] [place] Potassium molar conc 5.4 mmol/L High 3.6-5.1 [facility] Comment on above: Performed By: #### 6 9405-9, 57128-8, 3040-3, 79869-3 ####[facility] [address] [place] Protein 6.7 g/dL Normal 6.1-7.9 [facility] Comment on above: Performed By: #### 6 9405-9, 79897-9, 3040-3, 64231-4 ####[facility] [address] [place] Sodium 141 mmol/L Normal 136-145 [facility] Comment on above: Performed By: #### 6 9405-9, 44573-3, 3040-3, 98196-7 ####[facility] [address] Urea nitrogen mass conc (BldV) 10 mg/dL Normal 8-20 [facility] Comment on above: Performed By: #### 6 9405-9, 82365-7, 3040-3, 39269-9 ####[facility] [address] [place], [place] GFRaaon 09-12-2017 eGFR (black) mL/min/{1.73_m2} Normal [facility] Comment on above: Result Comment: The MDRD equation has not been validated for those over 70 years, women, patients with serious co-morbid conditions, or with extremes of bodysize, muscle mass of nutritional status. Performed By: #### 6 9405-9, 38554-2, 3040-3, 24557-3 ####[facility] [address], [place] GFRbbon 09-12-2017 eGFR (non-black) mL/min/{1.73_m2} Normal [facility] Comment on above: Performed By: #### 6 9405-9, 39305-0, 3040-3, 45349-4 ####[facility] [address] Lipaseon 09-12-2017 Lipase 16 Units/L Low 22-51 [facility] Comment on above: Performed By: #### 6 9405-9, 79890-9, 3040-3, 52930-4 ####[facility] [address] [place], [place] Vital Signs Date Time Vital Sign Value Performing Clinician Facility 08-20-2023 10:00-0500 Body mass index (BMI) [Ratio] 27 kg/m2 Karla THAAP Work Phone: [facility] 08-20-2023 10:00-0500 Body weight 75.3 kg Karla Muhammad PA Work Phone: [facility] 08-20-2023 10:00-0500 Diastolic blood pressure 62 mm[Hg] Karla Muhammad PA Work Phone: [facility] 08-20-2023 10:00-0500 Systolic blood pressure 110 mm[Hg] Karla Muhammad PA Work Phone: [facility] 03-09-2017 18:37-0400 BMI (Body Mass Index) 22.43 kg/m2 [facility]: 03-09-2017 18:37-0400 Body Temperature 98.49 [degF] [facility] Work Phone: 03-09-2017 18:37-0400 BP Diastolic 76 mm[Hg] Deirdre Aleman [employer] Work Phone: 03-09-2017 18:37-0400 BP Systolic 127 mm[Hg] Deirdre Aleman [facility] Work Phone: 03-09-2017 18:37-0400 Height 170.2 cm Deirdre Aleman [facility] Work Phone: 03-09-2017 18:37-0400 Pulse (Heart Rate) 61 /min Deirdre Aleman [employer] Work Phone: 03-09-2017 18:37-0400 Pulse Oximetry 98 % [facility] Work Phone: 03-09-2017 18:37-0400 Respiratory Rate 18 /min Deirdre Aleman [employer] Work Phone: 03-09-2017 18:37-0400 Weight 64.95 kg Deirdre Aleman [facility] Work Phone: Encounters Encounter Date Encounter [...] End: 02-28-2023 ambulatory Rossy R AMITA Facility:[facility] Start: 02-27-2023 End: 02-27-2023 Patient encounter procedure Rossy R AMITA [facility] Start: 01-17-2018 End: 01-17-2018 Patient encounter BROCK GUEVARA Facility[facility] Start: 09-13-2017 End: 09-13-2017 Patient encounter MAXIM LANDAVERDE Facility:[facility] Start: 03-09-2017 End: 03-09-2017 Ambulatory PHYSICIAN NO [facility] Start: 03-09-2017 End: 03-09-2017 Office outpatient new 30 minutes Deirdre Aleman Work Phone: [facility] Comment on above: STD exposure (Primar y [...] AM EST Routine [facility] [address] [facility] [address] [place] [address] Rossy Ayers, DO [address] [place] [address] [facility] Start: 03-09-2017 SEQUENTIAL INFLUENZA VACCINE (#1) SEQUENTIAL INFLUENZA VACCINE (#1) [facility] Work Phone: Start: 2008 HPV VACCINES (1 of 3 - Female 3 Dose Series) HPV VACCINES (1 of 3 - Female 3 Dose Series) [facility] Work Phone: Start: 1997 TETANUS EVERY 10 YR TETANUS EVERY 10 YR [facility] Work Phone: Chlamydia/GC/Trichom katarzyna s Amplified RNA Chlamydia/GC/Trichomona s Amplified RNA Routine STD exposure Ordered: 03/09/2017 [facility] Work Phone: Comment on above: Ordered: 03/09/2017 Chlamydia/Gonorrhoea e Amplified RNA Chlamydia/Gonorrhoeae Amplified RNA Routine STD exposure Ordered: 03/09/2017 [facility] Work Phone: Comment on above: Ordered: 03/09/2017 Trichomonas vaginali s Amplified RNA Trichomonas vaginalis Amplified RNA Routine STD exposure Ordered: 03/09/2017 [facility] Work Phone: Comment on above: Ordered: 03/09/2017 Immunizations Immunization Date Immunization Notes Care Provider Calvin angel 08-11-2020 tetanus toxoid, redu chris diphtheria toxoid, and acellular pertussis vaccine, adsorbed Rossy AYERS [facility] 09-10-2019 influenza virus vaccine, unspecified formulation Karla THAPA Work Phone: [facility] Healthcare Payers Date Payer Category Payer Unknown 2015 Unknown [id number] 1997 Unknown [id number] 2.16.8 [id number] 1997 Unknown [id number] 2.16.84 [id number] 1997 Unknown [id number] 2.16.84 [id number] 1997 Unknown [id number] 2.16.84 [id number] 1997 Unknown [id number] 2.16.84 [id number] 1997 Unknown [id number] 2.16.840 [id number] 1997 Unknown [id number] 2.16.840 .[id number] 1997 Unknown [id number] 2.16.840 .[id number] 1997 Unknown [id number]. [id number] Social History Date Type Detail Facility Start: 03-09-2017 End: 03-10-2023 Tobacco smoking status PAIS Never smoker [facility] Start: 1997 Sex Assigned At Not on file [facility] Work Phone: Tobacco smoking status No Smokin g Status Entered [facility] Start: 05-23-2023 Sex Assigned At Female F [facility] Start: 03-10-2023 Tobacco use and exposure Smokeless [...] of: ALANIS Zavala documented in this encounter [facility] Healthcare Evaluation + Plan note 02-27-2023 Note Date & Type Note Facility 02-27-2023 Evaluation + Plan note Diagnostic Tests PendingUrine Culture 02/27/23HIV Screen 4th Generation wRfx 02/27/23HCV Antibody RFX to Quant PCR 02/27/23Hepatitis B Surface Antigen 02/27/23RPR with Conf Rfx 02/27/23Rubella Antibody IgG 02/27/23Rubella Antibody IgM 02/27/23 [facility] Evaluation note Note Date & Type Note Facility Evaluation note Diagnosis Third trimester state, incidental documented in this encounter [facility] Healthcare Hospital course Narrative Note Date & Type Note Facility Hospital course Narrative No data available for this section [facility] Hospital Discharge instructions Note Date & Type Note Facility Hospital Discharge instructions No data available for this section [facility] Progress note Note Date & Type Note Facility Progress note No data available for this section [facility] Summary Purpose Family History No Family History Records FoundNo Family History Records FoundNo Family History Records FoundNo Family History Records Found Advance Directives No Advanced Directives Records FoundNo Advanced Directives Records FoundNo Advanced Directives Records FoundNo Advanced Directives Records Found Instructions * Patient Instructions - Deirdre Aleman PA-Mehdi - 03/09/2017 6:54 PM EDT Follow up with [facility], If worse go to ED [...] Log into your personal health record on [email or web address] system and enter M049 in the Education box to learn more about Exposure to Sexually Transmitted Infections: Care Instructions. Current as of: December 03, 2015 Content Version: 11.2 3957-1426 [employer]. Care instructions adapted under license by your healthcare professional. If you have questions about a medical condition or this instruction, always ask your healthcare professional. [employer] disclaims any warranty or liability for your use of this information. in this encounter History of Present Illness * Deirdre Aleman PA-C - 03/09/2017 6:50 PM EDT Formatting of this note may be different from the original. PATIENT NAME: Joselyn Matthews [facility] [address] [facility] [address] : 1995 DATE OF VISIT: 03/09/2017 #: [...] section and content) DATE CREATED AUTHOR 01/02/2018 [facility] DATE CREATED AUTHOR AUTHOR'S ORGANIZ ATION 01/17/2018 [facility] DATE CREATED AUTHOR AUTHOR'S ORGANIZ ATION 03/02/2023 [facility] DATE CREATED AUTHOR AUTHOR'S ORGANIZ ATION 08/27/2023 [facility] EPIC Reason for Visit (unrecogniz ed section and content) Reason Comments Exposure to STD boyfriend treated fo r chlamydia today Reason Comments Routine Visit Patient Care team informatio n (unrecognized section and content) 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 [facility] [employer] [facility]. provides no warranty or guarantee of the accuracy or completeness of information in this document.
== END 2023-09-10 13:42 | disposition home or self-care (01) ==
LOC: NOMS 13:41
PROVIDERS: Family Provider Family Medicine; Visit Provider Obstetrics & Gynecology
DX: O36.60X0 Maternal care for excessive fetal growth, unspecified trimester, not applicable or unspecified (principal); Z3A.38 38 weeks gestation of pregnancy
CPT/HCPCS: 76816

== ENCOUNTER 2023-09-14 14:25 | Inpatient (IN) | payer MEDICAID, SELFPAY ==
[2023-09-14] VITALS (8 sets, daily range): BP systolic 106–136; BP diastolic 58–80; PULSE 54–73; RESP 16; TEMP 36.2–36.5
[2023-09-14 15:43] LABS: Amphetamine Screen Urine NEGATIVE (NEGATIVE); Barbiturates Screen Urine NEGATIVE (NEGATIVE); Benzodiazepines Screen Urine NEGATIVE (NEGATIVE); Buprenorphine Screen Urine NEGATIVE (NEGATIVE); Cannabinoid Screen Urine NEGATIVE (NEGATIVE); Cocaine Screen Urine NEGATIVE (NEGATIVE); Methadone Screen Urine NEGATIVE (NEGATIVE); Methamphetamines Screen Urine NEGATIVE (NEGATIVE); Opiate Screen Urine NEGATIVE (NEGATIVE); Oxycodone Screen Urine NEGATIVE (NEGATIVE); Phencyclidine Screen Urine NEGATIVE (NEGATIVE); Tricyclic Antidepressant Urine NEGATIVE (NEGATIVE)
[2023-09-14 16:00] LABS: Hemoglobin 12.4 g/dL (12.0-16.0); Mean Corpuscular HGB Conc 33.5 g/dL (29.9-35.2); Mean Corpuscular Hemoglobin 30.3 pg (26.7-34.0); Mean Corpuscular Volume 90.5 fL (81.0-99.0); Mean Platelet Volume 11.1 fL (9.5-13.5); Platelet Count 224 10^3/uL (150-450); Red Blood Count 4.09 10^6/uL (4.20-5.40); Red Cell Distribution Width 12.8 % (11.0-15.0); White Blood Count 10.3 10^3/uL (4.0-11.0)
[2023-09-14 16:52] LABS: Bilirubin Urine NEGATIVE (NEGATIVE); Blood Urine TRACE-I (NEGATIVE); Clarity Urine CLEAR (CLEAR); Color Urine LT. YELLOW (YELLOW); Glucose Urine UA NEGATIVE (NEGATIVE); Ketones Urine NEGATIVE (NEGATIVE); Leukocyte Esterase Urine TRACE (NEGATIVE); Nitrite Urine NEGATIVE (NEGATIVE); Protein Urine NEGATIVE (NEG/TRACE); Urobilinogen Urine 0.2 EU/dL (0.2-1.0); pH Urine 7.5 (5.0-9.0)
[2023-09-14 16:59] LABS: Urine Microscopic Indicated YES
[2023-09-14 17:15] LABS: Bacteria Urine SMALL #/HPF (NONE SEEN); Cast Seen? NONE SEEN #/LPF (NONE SEEN); Crystals Seen? None Seen #/HPF (None Seen); Mucus Urine TRACE (NONE SEEN); RBC Urine 0-2 #/HPF (0-2); Squamous Epithelial Cell Urine FEW #/LPF (NONE/RARE); Urine Culture Indicated YES
[2023-09-14] MEDS: 0.9 % SODIUM CHLORIDE 1,000 ML 1000 ML IV (20:36)
[2023-09-14] MEDS: OXYTOCIN/0.9 % SODIUM CHLORIDE 10 UNITS/500 ML PLAST..BAG 6 UNIT IV (20:37)
[2023-09-15] VITALS (50 sets, daily range): BP systolic 102–153; BP diastolic 51–90; PULSE 54–98; RESP 14–18; TEMP 36.2–36.7
[2023-09-15] MEDS: 0.9 % SODIUM CHLORIDE 1,000 ML 125 ML IV ×2 (01:41→05:22)
[2023-09-15] MEDS: ROPIVACAINE HCL/PF 400 MG/200 ML PREMIX 6 MG EPIDURAL (02:25)
[2023-09-15] MEDS: OXYTOCIN/0.9 % SODIUM CHLORIDE 20 UNITS/1,000 ML PLAST..BAG 125 UNIT IV (06:06)
--- NOTE | 2023-09-15 06:21 | PM.OBPRCVD ---
Procedure Intrapartal events: None Induction method: none Delivery augmentation: pitocin Delivery monitor: external FHT and external uterine Route of delivery: Episiotomy Description: none L&D Laceration Description: periurethral - 1st degree Delivery repair: Vicryl Estimated blood loss (mL): 200 Anesthesia type: Epidural Disposition: floor Delivery date: 09/15/23 Gender: male presentation: vertex Placental delivery description: Spontaneous cord description: 3 Vessels
[2023-09-15] MEDS: IBUPROFEN 600 MG TABLET PO ×2 (10:24→16:38)
[2023-09-15] MEDS: BENZOCAINE/MENTHOL 85 GRAM SPRAY BOTTLE 1 APPLIC TOPICAL (10:24)
[2023-09-15] MEDS: GLYCERIN/WITCH HAZEL PADS 1 PAD TOPICAL (10:24)
[2023-09-16] VITALS (7 sets, daily range): BP systolic 109–135; BP diastolic 66–73; PULSE 56–67; RESP 16–17; TEMP 36.5–36.7
[2023-09-16] MEDS: IBUPROFEN 600 MG TABLET PO ×4 (00:26→23:29)
--- NOTE | 2023-09-16 05:47 | PC.NURSE ---
0535- Infant returned to room and put to breast.
[2023-09-16 06:05] LABS: Basophils Percent Auto 0.3 % (0.2-2.0); Eosinophils Absolute Auto 0.1 10^3/uL (0.0-0.7); Eosinophils Percent Auto 0.5 % (0.9-7.0); Hematocrit 31.1 % (36.0-48.0); Hemoglobin 10.2 g/dL (12.0-16.0); Immature Granulocytes Abs Auto 0.05 10^3/uL (0.00-0.03); Immature Granulocytes Pct Auto 0.5 % (0.0-0.5); Lymphocytes Absolute Auto 2.3 10^3/uL (1.2-3.8); Mean Corpuscular HGB Conc 32.8 g/dL (29.9-35.2); Mean Corpuscular Hemoglobin 30.4 pg (26.7-34.0); Mean Corpuscular Volume 92.8 fL (81.0-99.0); Mean Platelet Volume 10.6 fL (9.5-13.5); Monocytes Absolute Auto 0.7 10^3/uL (0.3-0.8); Monocytes Percent Auto 7.4 % (1.7-12.0); Neutrophils Absolute Auto 6.8 10^3/uL (1.4-6.5); Neutrophils Percent Auto 68.3 % (43.0-75.0); Platelet Count 210 10^3/uL (150-450); Red Blood Count 3.35 10^6/uL (4.20-5.40); Red Cell Distribution Width 13.2 % (11.0-15.0); White Blood Count 9.9 10^3/uL (4.0-11.0)
--- NOTE | 2023-09-16 07:01 | PC.NURSE ---
Report given to Todd Lewis RN
[2023-09-16] MEDS: DOCUSATE SODIUM 100 MG CAPSULE PO ×2 (08:03→20:35)
--- NOTE | 2023-09-16 11:01 | PM.OBPN ---
OB - PN: Subj Subjective Patient comments: no complaints [place] status: doing well and well feeding status: exclusively Exam Constitutional Vital Signs, click to edit/add: Last Vital Signs Temp 98.1 F 09/16/23 08:00 Pulse 56 L 09/16/23 08:03 Resp 17 09/16/23 08:00 BP 109/67 09/16/23 08:03 Documenting provider has reviewed patient's vital signs: yes Common normals: no apparent distress, oriented x3, no limitations, healthy appearing, alert and well nourished HENMT Common normals: normocephalic Eye Common normals: EOMs intact bilaterally General eye: normal appearance of both eyes Neck & C-Spine Common normals: full ROM Lymph Lymphatic: no lymphadenopathy noted Chest Common normals: inspection of chest normal Respiratory Common normals: normal respiratory effort and clear to auscultation bilaterally Auscultation: clear to auscultation bilaterally Cardio Common normals: regular rate and regular rhythm Rate: regular rate Rhythm: regular rhythm GI Common normals: Normal to inspection, nondistended, normoactive bowel sounds present Common normals: no CVA tenderness Back & Pelvis Common normals: no CVA tenderness Extremity Common normals: normal to inspection and full ROM Neuro Common normals: oriented x3 Sensorium/orientation: awake, alert, oriented to person, oriented to place and oriented to time Psych Common normals: mental status grossly normal Speech: normal speech Results Labs Labs: Short CBC 09/16/23 Range/Units 05:55 WBC 9.9 (4.0-11.0) 10^3/uL Hgb 10.2 L (12.0-16.0) g/dL Hct 31.1 L (36.0-48.0) % Plt Count 210 (150-450) 10^3/uL Urinary Catheter Management Urinary Catheter Management Urethral: Cath placed during this visit: no OB - PN: A/P Plan - Vaginal Delivery Plan: routine care Time Spent with Patient Time: Total time spent is greater than 50% in coordination of care (as documented) at patient's floor/unit and/or counseling patient: Total time spent with greater than 50% in coordination of care (as documented) at patient's floor/unit and/or counseling patient: less than 15 minutes
--- NOTE | 2023-09-17 07:27 | W.PC.ACHO ---
Registration Status: ADM ALYSSA Primary Language: [place] Preferred Language: [place] Report received from Víctor Garcia RN at 0749. Active Medications Generic Name Dose Route Start Last Admin Trade Name Freq PRN Reason Stop Dose Admin Acetaminophen 650 mg 09/15/23 06:22 Acetaminophen 325 Mg Tablet PO Q6H PRN Mild Pain Al Hydroxide/Mg Hydroxide 2,400 mg 09/15/23 06:22 Magnesium Hydroxide 2,400 Mg/10 Ml Oral.Susp PO Q6H PRN Dyspepsia Benzocaine/Menthol 1 applic 09/15/23 06:22 09/15/23 10:24 Benzocaine/Menthol 85 Gram [place] Bottle TOPICAL 1 applic Q2H PRN Administration Pain Diphtheria/Pertussis/Tetanus Vacc 0.5 ml 09/17/23 09:00 Adacel Diph,Pertuss(Acell),Tet Vac/Pf 0.5 Ml Adult Syringe IM 09/17/23 09:01 .ONCE ONE Docusate Sodium 100 mg 09/16/23 09:00 09/16/23 20:35 Docusate Sodium 100 Mg Capsule PO 100 mg BID KARL Administration Sodium Chloride 1,000 mls @ 125 mls/hr 09/14/23 15:00 09/15/23 05:22 Sodium Chloride 0.9% 1,000 Ml IV 125 mls/hr .Q8H KARL Administration Ibuprofen 600 mg 09/15/23 06:22 09/16/23 23:29 Ibuprofen 600 Mg Tablet PO 600 mg Q6H PRN Administration Moderate Pain Measles/Mumps/Rubella Vaccine Live 0.5 ml 09/17/23 09:00 Measles,Mumps,Rubella Vacc/Pf 0.5 Ml Vial SQ 09/17/23 09:01 .ONCE ONE Ondansetron HCl 4 mg 09/14/23 14:56 Ondansetron Pf 4 Mg/2 Ml Vial IV Q6H PRN Nausea And Vomiting Ondansetron HCl 4 mg 09/14/23 14:56 Ondansetron 4 Mg Rapdis Tablet SL Q6H PRN Nausea And Vomiting Senna 17.2 mg 09/15/23 20:00 Sennosides 8.6 Mg Tablet PO QHS PRN Constipation Simethicone 80 mg 09/15/23 06:22 Simethicone 80 Mg Tab.Chew PO QID PRN Abdominal Distention Temazepam 15 mg 09/15/23 06:22 Temazepam 15 Mg Capsule PO QHS PRN Sleep Witch Shital/Glycerin 1 pad 09/15/23 06:22 09/15/23 10:24 Glycerin/Witch Shital Pads TOPICAL 1 pad Q2H PRN Administration Pain Respiratory Oxygen Delivery Method Room Air Cardiology Heart Sounds Strong,Regular Bowels Date of Last Bowel Movement 09/15/23 Renal Bladder Pattern Continent Bladder Pattern Continent
--- NOTE | 2023-09-17 07:40 | PM.OBPN ---
OB - PN: Subj Subjective Patient comments: no complaints and pain well controlled [place] status: doing well Exam Constitutional Vital Signs, click to edit/add: Last Vital Signs Temp 98.0 F 09/16/23 23:30 Pulse 65 09/16/23 23:31 Resp 16 09/16/23 23:30 BP 115/66 09/16/23 23:31 O2 Del Method Room Air 09/16/23 16:15 Documenting provider has reviewed patient's vital signs: yes Common normals: no apparent distress Respiratory Common normals: clear to auscultation bilaterally Cardio Common normals: regular rate and regular rhythm GI Common normals: Normal to inspection, nondistended, normoactive bowel sounds present Extremity Common normals: no calf tenderness Urinary Catheter Management Urinary Catheter Management Urethral: Cath placed during this visit: no OB - PN: A/P Plan - Vaginal Delivery day: 2 Plan: routine care, discharge home and follow up 6 weeks Time Spent with Patient Time: Total time spent is greater than 50% in coordination of care (as documented) at patient's floor/unit and/or counseling patient: Total time spent with greater than 50% in coordination of care (as documented) at patient's floor/unit and/or counseling patient: less than 15 minutes
[2023-09-17 08:35] VITALS: BP 134/83; PULSE 82
[2023-09-17 08:40] VITALS: RESP 16; TEMP 36.7
[2023-09-17] MEDS: IBUPROFEN 600 MG TABLET PO (09:26)
[2023-09-17 14:14] VITALS: BP 125/80; PULSE 85; RESP 16
== END 2023-09-17 14:20 | disposition home or self-care (01) | DRG 560 ==
PROVIDERS: Admitting Provider Obstetrics & Gynecology; Family Provider Family Medicine; Visit Provider Obstetrics & Gynecology
DX: O71.82 Other specified trauma to perineum and vulva (principal); Z3A.38 38 weeks gestation of pregnancy; Z37.0 Single live birth
CPT/HCPCS: 36415; 51702; 59050; 59410; 80307; 81001; 85025; 85027; 86850; 86900; 86901; 87086; 96365; 96366; 96376

== ENCOUNTER 2023-09-19 08:30 | Outpatient (OUT) | payer MEDICAID, SELFPAY ==
--- OUTSIDE RECORDS SUMMARY | 2023-09-19 09:01 | XMS_ITS | CCD ---
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 Machine Installer Name Role Phone NO, PHYSICIAN Unavailable Unavailable DEIRDRE ALEMAN Unavailable Unavailable SAIMA, MAXIM Unavailable Unavailable SAIMA, MAXIM Unavailable Unavailable BROCK GUEVARA Unavailable Unavailable SAIMA, MAXIM Unavailable Unavailable Unavailable Primary Care Provider UnavailDuran Saucedo Primary Care Physician [phone] Rossy AYERS Attending Unavailable Rossy AYERS Admitting Unavailable Duran Cleveland MD Primary Care Provider ROSSY AYERS Attending Unavailable KARLA MUHAMMAD Attending Unavailable CHRISTOPHER LAINEZ Attending Unavailab le ROSSY AYERS Attending Unavailable KARLA MUHAMMAD Attending Unavailable ROSSY AYERS Attending Unavailable KARLA MUHAMMAD Attending Unavailable ROSSY AYERS Attending Unavailable ROSSY AYERS Attending Unavailable ROSSY AYERS Attending Unavailable Allergies Allergy Classification Reported Allergen(s) Allergy Type Date of Onset Reaction(s) Facility (2 sources) Octacosanol Propensity to adverse reactions 3 [facility] Work Phone: Medications Current Medications Medication Drug Class(es) Dates Sig (Normalized) Sig (Original) acetaminophen 325 mg / HYDROcodone bitartrate 5 mg oral tablet (1 source) Opioid Agonist Start: 08-11-2020 [place] 325 mg-5 mg oral tablet 1 tab(s), [...] injection 250 mg 250 mg, Intramuscular, Once, 03/09/17 at 1945, For 1 dose, now Given [...] Urobilinogen, UA 0.2 0.2 - 12 mg/dL [facility] Cytology Cervical or vaginal smear or scraping studyOrdered By: Shivani Garcia on 03-21-2023 [facility] .Interpretation:on 3 HCV Ab IA Ql Comment Invalid Interpretation Code [facility] Comment on above: Result Comment: Not infected with HCV unless early or acute infection is suspected (which may be delayed in an immunocompromised individual), or other evidence exists to indicate HCV infection. Performed at: [facility] [id number] PhD Ross Wise Performed By: #### 7 [id number], 29560189, 21088628, 7467900, 3384029299, 754416677, 2164381773, 5812777, 513513318, 5814931 #### [facility] [address] [place] [address] C Urineon 03-01-2023 Bacteria identified Cx Nom (U) Microbiology PROCEDURE: Urine Culture [R1] SOURCE: U CleanCatch BODY SITE: COLLECTED DATE/TIME: 02/27/2023 16:35 EDT RECEIVED DATE/TIME: 02/27/2023 18:14 EDT START DATE/TIME: 02/27/2023 18:14 EDT FREE TEXT SOURCE: Rossy AYRES DO, DO, Corey R FINAL REPORTS Final Report [] Verified Date/Time: 03/01/2023 07:16 EDT 3,000 cfu/ml Mixed skin contaminants Performing Locations R1: This test was performed at: [facility], [address] [place] [address], [phone]- [phone] , Normal [facility] Comment on above: Performed By: #### 2 [id number] ####[facility] [address] [place] [address] HCV Antibody RFX to Quant PC [place] 03-01-2023 HCV IgG IA Ql Non-Reactive Invalid Interpretation Code Non Reactive [facility] Comment on above: Result Comment: Perf ormed at: [facility] [address] [id number] PhD Ross Wise Performed By: #### 7 [id number], 06012078, 25710726, 2626579, 7776268575, 433762501, 0585983398, 6984418, 067100889, 1811512 #### [facility] [address] [place] [address] HIV Screen 4th Generation wR fxon 03-01-2023 HIV 1+2 Ab+HIV1 p24 Ag IA Ql Non-Reactive Invalid Interpretation Code Non Reactive [facility] Comment on above: Result Comment: HIV Negative HIV-1/HIV-2 antibodies and HIV-1 p24 antigen were NOT detected. There is no laboratory evidence of HIV infection. Performed at: [address] [id number] PhD Ross Wise Performed By: #### 7 [id number], 85451302, 91916063, 0190341, 6023244657, 659138768, 4397982832, 4500007, 203335639, 2300122 #### [facility] [address] [place] [address] Hep Bs Agon 03-01-2023 HBV surface Ag IA Ql Negative Invalid Interpretation Code Negative [facility] Comment on above: Result Comment: Perf ormed at: [address] [id number] PhD Ross Wise Performed By: #### 7 [id number], 27861250, 76735774, 2240985, 3444826514, 265160698, 8690177117, 7380003, 142758868, 8711594 ####[facility] [address] [place] [address] RPR with Conf Rfxon 03-01-20 23 Reagin Ab RPR Ql (S) Non-Reactive Invalid Interpretation Code Non Reactive [facility] Comment on above: Result Comment: Perf ormed at: [address] [id number] PhD Ross Wise Performed By: #### 7 [id number], 91442578, 03129647, 0165059, 6462718105, 818389464, 2259143267, 4510451, 371950626, 0463665 #### [facility] [address] [place] [address] Rubella IgGon 03-01-2023 Rubella virus IgG Qn (S) 11.40 [IU]/mL Invalid Interpretation Code Immune >0.99 [facility] Comment on above: Result Comment: Non- immune <0.90 Equivocal 0.90 - 0.99 Immune >0.99 Performed at: [address] [id number] PhD Ross Wise Performed By: #### 7 59474061, 28885398, 72207652, 6624600, 6085042051, 028496766, 4428804565, 5054233, 400342505, 2473010 ####[facility] [address] [place] [address] Rubella IgMon 03-01-2023 Rubella virus IgM IA Qn (S) <20.0 Invalid Interpretation Code 0.0-19.9 [facility] Comment on above: Result Comment: Nega tive <20.0 Equivocal 20.0 - 24.9 Positive >24.9 [facility]formed [facility]: [facility] [address] [place], [place] [id number] PhD Ross Wise Performed By: #### 7 [id number], 83683389, 40844650, 3089261, 4540527084, 054467181, 5615097549, 5682645, 875350447, 9852540 #### [facility] [address] [place] [address] ABO/Rhon 02-27-2023 ABO/Rh Positive Invalid Interpretation Code [facility] Comment on above: Performed By: #### 1 3977625, 3448889 ####[facility] [address] [place] [address] ABSCon 02-27-2023 ABSC Gel Interp Negative Normal [facility] Comment on above: Performed By: #### 1 8333946, 3437646 ####[facility] [address] [place] [address] BLOOD BANKOrdered By: Maxim Price on 02-27-2023 ABO/Rh Interp Positive Invalid Interpretation Code [facility] BB Subsection ABSC Gel Interp Negative (02/27/23 4:43 PM) Normal [facility] BB Subsection CBC w/Indiceson 02-27-2023 Erythrocyte distribution width (RBC) [Ratio] 12.8 % Normal 10.9-14.2 [facility] Comment on above: Performed By: #### 7 52932704, 75729495, 60801939, 9991786, 9751690606, 451029434, 3522188439, 8172728, 201104012, 2667233 #### [facility] [address] [place] [address] Hematocrit (Bld) [Volume fraction] 40.7 % Normal 34.0-46.0 [facility] Comment on above: Performed By: #### 7 77417714, 45205194, 72143397, 6673675, 2733226439, 915439575, 2875651721, 2907591, 497236254, 7495774 #### [facility] [address] [place] [address] Hemoglobin (Bld) [Mass/Vol] 14.0 g/dL Normal 12.0-16.0 [facility] Comment on above: Performed By: #### 7 55788601, 17818433, 45182048, 8082991, 0550988170, 692845666, 6874420220, 0486521, 988104888, 7715603 #### [facility] [address] [place] [address] MCH (RBC) [Entitic mass] 31.1 pg Normal 27.0-34.0 [facility] Comment on above: Performed By: #### 7 71388897, 15466661, 05485997, 4754696, 2137288440, 341901690, 0312170991, 8943003, 506599906, 7383795 #### [facility] [address] [place] [address] MCHC (RBC) [Mass/Vol] 34.4 g/dL Normal 31.4-36.0 [facility] Comment on above: Performed By: #### 7 30906619, 41787360, 74794529, 8585332, 0472184504, 720265517, 0374820774, 2393513, 612315495, 9371429 #### [facility] [address] [place] [address] MCV (RBC) [Entitic vol] 90.4 fL Normal 80.0-100.0 [facility] Comment on above: Performed By: #### 7 37561897, 21610340, 36098285, 6010418, 4308311166, 169666398, 9894100180, 3401352, 154850436, 7191529 #### [facility] [address] [place] [address] Platelet mean volume (Bld) [Entitic vol] 7.9 fL Normal 6.4-10.8 [facility] Comment on above: Performed By: #### 7 09047721, 36152625, 54902053, 3280263, 4246750308, 150721284, 7741406728, 5732278, 630682016, 3290553 #### [facility] [address] [place] [address] Platelets (Bld) [#/Vol] 312.0 E9/L Normal 150.0-500.0 [facility] Comment on above: Performed By: #### 7 86227451, 56552819, 14932691, 1727854, 8657040474, 420538697, 7683888564, 8837963, 872359694, 2782144 #### [facility] [address] [place] [address] RBC (Bld) [#/Vol] 4.5 E12/L Normal 4.3-5.9 [facility] Comment on above: Performed By: #### 7 29391199, 12054933, 61292608, 9767519, 9675065573, 474292174, 2078686305, 8505877, 530817706, 4276699 #### [facility] [address] [place] [address] WBC corrected for nucl RBC Auto (Bld) [#/Vol] 9.9 E9/L Normal 4.0-11.0 [facility] Comment on above: Performed By: #### 7 60599257, 52244137, 01320207, 4950881, 1049943535, 656820763, 4981594810, 0952059, 141372302, 5243835 #### [facility] [address] [place] [address] CHEMISTRYOrdered By: Cheko Segal on 02-27-2023 HbA1c (Bld) [Mass fraction] 5.0 % Normal <=5.9% [facility] ChemAutoSS CHEMISTRYOrdered By: SYSTEM SYSTEM on 02-27-2023 TSH Qn 2.85 m[IU]/L Normal 0.34 - 5.60 mcIU/mL [facility] Remisol Consent for Treatmenton 02-07 Consent for Treatment [id number] .[id number]:127 Normal [facility] HEMATOLOGYOrdered By: Maxim Price on 02-27-2023 [...] 9.9 E9/L Normal 4.0 - 11.0 E9/L [facility] HemeAutoSS [id number] 02-27-2023 HbA1c (Bld) [Mass fraction] 5.0 % Normal <=5.9 [facility] Comment on above: Performed By: #### 7 65514807, 17452785, 57602672, 5362329, 8577736011, 429191582, 4241478662, 5852459, 153048335, 6251582 #### [facility] [address] [place] [address] Physician Orderon 02-27-2023 Physician Order [id number] .[id number]:127 Normal [facility] TSHon 02-27-2023 TSH Qn 2.85 m[IU]/L Normal 0.34-5.60 [facility] Comment on above: Performed By: #### 7 68294090, 97877059, 08270388, 7394705, 8863202602, 768635806, 3280265799, 8540869, 747298898, 5664879 #### [facility] [address] [place] [address] XR Ankle 3+ Views LTon 01-16 XR [...] 15:17Transcribed by: AYLIN 01/16/2018 15:17Technologist: MLR Normal [facility] CBC with Differentialon Basophils Auto #/vol (Bld) 0.10 thou/mcL Normal 0.00-0.20 [facility] Comment on above: Performed By: #### 6 9742-5 ####[facility] [address] [place], [place] Basophils/100 WBC Auto (Bld) 0.8 % Normal 0.0-2.0 [facility] Comment on above: Performed By: #### 6 9742-5 ####[place] [address] [place], [place] Eosinophils 0.10 thou/mcL Normal 0.00-0.70 [facility] Comment on above: Performed By: #### 6 9742-5 ####[facility] [address] [place], [place] Eosinophils/100 leukocytes 1.1 % Normal 0.0-7.0 [facility] Comment on above: Performed By: #### 6 9742-5 ####[place] [address] [place], [place] Erythrocyte distribution width Entitic volume (RBC) 13.2 % Normal 11.0-14.8 [facility] Comment on above: Performed By: #### 6 9742-5 ####[facility] [address] [place], [place] Erythrocytes (RBC) 4.66 million/mcL Normal 3.80-5.10 [facility] Comment on above: Performed By: #### 6 9742-5 ####[place] [address] [place], [place] Hematocrit (HCT) 41.6 % Normal 35.0-45.0 [facility] Comment on above: Performed By: #### 6 9742-5 ####[place] [address] [place], [place] Hemoglobin mass conc (Bld) 14.5 g/dL Normal 12.0-16.0 [facility] Comment on above: Performed By: #### 6 9742-5 ####[facility] [address] [place], [place] Lymphocytes 1.70 thou/mcL Normal 1.00-4.80 [facility] Comment on above: Performed By: #### 6 9742-5 ####[place] [address] [place], [place] Lymphocytes/100 leukocytes 21.3 % Low 25.0-45.0 [facility] Comment on above: Performed By: #### 6 9742-5 ####[address] MCH 31.2 Picograms Normal 27.0-34.0 [facility] Comment on above: Performed By: #### 6 9742-5 ####[address] MCHC mass conc (RBC) 35.0 g/dL Normal 32.0-36.0 [facility] Comment on above: Performed By: #### 6 9742-5 ####[facility] MCV 89.3 fL Normal 80.0-97.0 [facility] Comment on above: Performed By: #### 6 9742-5 ####[facility] Monocytes 0.50 thou/mcL Normal 0.00-0.90 [facility] Comment on above: Performed By: #### 6 9742-5 ####[facility] Monocytes/100 leukocytes 6.7 % Normal 2.0-8.0 [facility] Comment on above: Performed By: #### 6 9742-5 ####[facility] Neutrophils 5.50 thou/mcL Normal 1.80-7.70 [facility] Comment on above: Performed By: #### 6 9742-5 ####[facility] Neutrophils/100 WBC Auto (Bld) 70.1 % Normal 39.0-75.0 [facility] Comment on above: Performed By: #### 6 9742-5 ####[facility] [address], [place] Platelet mean volume Entitic volume (Bld) 8.1 FL Normal 6.2-12.1 [facility] Comment on above: Performed By: #### 6 9742-5 ####[facility] [address], [place] Platelets 314 thou/mcL Normal 142-424 [facility] Comment on above: Performed By: #### 6 9742-5 ####[facility] [address], [place] WBC (Leukocytes) 7.8 thou/mcL Normal 4.5-13.5 [facility] Comment on above: Performed By: #### 6 9742-5 ####[place] [address] [address] [place], [place] Comprehensive Metabolic Pane nilesh 09-12-2017 Alanine aminotransferase (ALT) 14 Units/L Normal 14-63 [facility] Comment on above: Performed By: #### 6 9405-9, 37233-4, 3040-3, 85666-3 ####[facility] [address], [place] Albumin 4.3 g/dL Normal 3.5-4.8 [facility] Comment on above: Performed By: #### 6 9405-9, 65588-1, 3040-3, 57698-6 ####[place] [address], [place] Alkaline phosphatase (ALP) 78 Units/L Normal 32-91 [facility] Comment on above: Performed By: #### 6 9405-9, 80863-7, 3040-3, 72231-6 ####[facility] [address], [place] Anion gap 9.0 mmol/L Normal 6.0-18.0 [facility] Comment on above: Result Comment: PLEA SE NOTE:The calculated Anion Gap(AGAP) does not include Potassium. Performed By: #### 6 9405-9, 72584-6, 3040-3, 96058-6 ####[facility] [address], [place] Aspartate aminotransferase (AST) 17 Units/L Normal 15-41 [facility] Comment on above: Performed By: #### 6 9405-9, 25563-7, 3040-3, 72178-8 ####[facility] [address], [place] Bilirubin (total) 0.7 mg/dL Normal 0.3-1.2 [facility] Comment on above: Performed By: #### 6 9405-9, 92185-7, 3040-3, 26059-1 ####[facility] [address], [place] Calcium 9.8 mg/dL Normal 8.9-10.3 [facility] Comment on above: Performed By: #### 6 9405-9, 19831-3, 3040-3, 26255-3 ####[facility] [address], [place] Chloride 103 mmol/L Normal 98-107 [facility] Comment on above: Performed By: #### 6 9405-9, 36649-1, 3040-3, 46216-4 ####[facility] [address], [place] CO2 29 mmol/L Normal 22-32 [facility] Comment on above: Performed By: #### 6 9405-9, 88563-5, 3040-3, 70349-7 ####[facility] [address], [place] Creatinine 0.87 mg/dL Normal 0.60-1.30 [facility] Comment on above: Performed By: #### 6 9405-9, 31139-0, 3040-3, 59961-3 ####[facility] [address], [place] Glucose mass conc 89 mg/dL Normal 70-110 [facility] Comment on above: Performed By: #### 6 9405-9, 80781-4, 3040-3, 23428-5 ####[facility] [address], [place] Potassium molar conc 5.4 mmol/L High 3.6-5.1 [facility] Comment on above: Performed By: #### 6 9405-9, 34197-8, 3040-3, 00362-1 ####[facility] [address], [place] Protein 6.7 g/dL Normal 6.1-7.9 [facility] Comment on above: Performed By: #### 6 9405-9, 12441-9, 3040-3, 24571-2 ####[facility] [address], [place] Sodium 141 mmol/L Normal 136-145 [facility] Comment on above: Performed By: #### 6 9405-9, 06046-2, 3040-3, 51847-1 ####[facility] [address], [place] Urea nitrogen mass conc (BldV) 10 mg/dL Normal 8-20 [facility] Comment on above: Performed By: #### 6 9405-9, 74699-1, 3040-3, 15689-3 ####[facility] [address], [place] GFRaaon 09-12-2017 eGFR (black) mL/min/{1.73_m2} Normal [facility] Comment on above: Result Comment: The MDRD equation has not been validated for those over 70 years, women, patients with serious co-morbid conditions, or with extremes of bodysize, muscle mass of nutritional status. Performed By: #### 6 9405-9, 44019-8, 3040-3, 30566-3 ####[facility] [address], [place] GFRbbon 09-12-2017 eGFR (non-black) mL/min/{1.73_m2} Normal [facility] Comment on above: Performed By: #### 6 9405-9, 40200-9, 3040-3, 41988-5 ####[facility] [address], [place] Lipaseon 09-12-2017 Lipase 16 Units/L Low 22-51 [facility] Comment on above: Performed By: #### 6 9405-9, 05197-4, 3040-3, 34742-8 ####[facility] [address] [place], [place] Vital Signs Date Time Vital Sign Value Performing Clinician Facility 08-20-2023 10:00-0500 Body mass index (BMI) [Ratio] 27 kg/m2 Karla THAPA Work Phone: [facility] 08-20-2023 10:00-0500 Body weight 75.3 kg Karla Muhammad PA Work Phone: [facility] 08-20-2023 10:00-0500 Diastolic blood pressure 62 mm[Hg] Karla Muhammad PA Work Phone: [facility] 08-20-2023 10:00-0500 Systolic blood pressure 110 mm[Hg] Karla Muhammad PA Work Phone: [facility] 03-09-2017 18:37-0400 BMI (Body Mass Index) 22.43 kg/m2 [facility] Work [facility]: 03-09-2017 18:37-0400 Body Temperature 98.49 [degF] [facility] Work Phone: 03-09-2017 18:37-0400 BP Diastolic 76 mm[Hg] [facility] Work Phone: 03-09-2017 18:37-0400 BP Systolic 127 mm[Hg] Deirdre Aleman [facility] Work Phone: 03-09-2017 18:37-0400 Height 170.2 cm [facility]man [facility] Work Phone: 03-09-2017 18:37-0400 Pulse (Heart Rate) 61 /min Deirdre Aleman [facility] Work Phone: 03-09-2017 18:37-0400 Pulse Oximetry 98 % Deirdre Aleman [facility] Work Phone: 03-09-2017 18:37-0400 Respiratory Rate 18 /min Deirdre Tirso [facility] Work Phone: 03-09-2017 18:37-0400 Weight 64.95 kg Deirdre Aleman [facility] Work Phone: Encounters Encounter Date Encounter Type Care Provider Facility Start: 09-10-2023 End: 09-10-2023 ambulatory ROSSY AMITA Not Available Start: 09-03-2023 End: 09-03-2023 ambulatory ROSSY AMITA Not Available Start: 08-27-2023 End: 08-27-2023 ambulatory ROSSY AMITA Not Available Start: 08-20-2023 End: 08-20-2023 ambulatory KARLA SABINA Not Available Start: 08-20-2023 End: 08-20-2023 Office outpatient visit 15 minutes Karla THAPA Work Phone: [facility] Comment on above: Third trimester preg garry Start: 08-02-2023 End: 08-02-2023 ambulatory RSOSY AMITA Not Available Start: 07-16-2023 End: 07-16-2023 ambulatory KARLA SABINA Not Available Start: 07-03-2023 End: 07-03-2023 ambulatory ROSSY AMITA Not Available Start: 06-20-2023 End: 06-20-2023 ambulatory KARLA SABINA Not Available Start: 05-23-2023 End: 05-23-2023 ambulatory CHRISTOPHER A DONNAMILLER Not Available Start: 05-22-2023 End: 05-22-2023 ambulatory ROSSY AMITA Not Available Start: 02-27-2023 End: 02-28-2023 ambulatory Rossy R AMITA Facility:[facility] Start: 02-27-2023 End: 02-27-2023 Patient encounter procedure Rossy R AMITA [facility] Start: 01-17-2018 End: 01-17-2018 Patient encounter BROCK GUEVARA Facility[facility] Start: 09-13-2017 End: 09-13-2017 Patient encounter MAXIM LANDAVERDE Facility:[facility] Start: 03-09-2017 End: 03-09-2017 Ambulatory PHYSICIAN NO [facility] Start: 03-09-2017 End: 03-09-2017 Office outpatient new 30 minutes Deirdre Aleman Work Phone: [facility] Beatris Koenig Comment on above: STD exposure (Primar y Dx) Procedures Date Procedure Procedure Detail Performing Clinician Start: 08-20-2023 Urnls dip stick/tabl et rgnt non-auto w/o micrscp Karla THAPA Work Phone: Start: 03-21-2023 Cytp cerv/vag auto t hin layer prep mnl screen Rossy Ayers DO Work Phone: None (qualifier value) Rossy AYERS Plan of Treatment Date Care Activity Detail Author Start: 01-06-2024 Influenza vaccination Influenza Vacc ine (#1) [facility] Comment on above: Postponed from 03/09 (Patient Refused) Start: 08-27-2023 End: 08-27-2023 Patient encounter procedure 08/27/2023 8:40 AM EST Routine [facility] [address] [place] [address] Rossy Ayers, DO [address] [place] [address] [facility] Start: 03-09-2017 SEQUENTIAL INFLUENZA VACCINE (#1) SEQUENTIAL INFLUENZA VACCINE (#1) [facility] Work Phone: Start: 2008 HPV VACCINES (1 of 3 - Female 3 Dose Series) HPV VACCINES (1 of 3 - Female 3 Dose Series) [facility] Work Phone: Start: 1997 TETANUS EVERY 10 YR TETANUS EVERY 10 YR [facility] Work Phone: Chlamydia/GC/Trichom katarzyna s Amplified RNA Chlamydia/GC/Trichomona s Amplified RNA Routine STD exposure Ordered: 03/09/2017 [facility] Work Phone: Comment on above: Ordered: 03/09/2017 Chlamydia/Gonorrhoea e Amplified RNA Chlamydia/Gonorrhoeae Amplified RNA Routine STD exposure Ordered: 03/09/2017 [id number] Work Phone: Comment on above: Ordered: 03/09/2017 Trichomonas vaginali s Amplified RNA Trichomonas vaginalis Amplified RNA Routine STD exposure Ordered: 03/09/2017 [id number] Work Phone: Comment on above: Ordered: 03/09/2017 Immunizations Immunization Date Immunization Notes Care Provider Fa cility 08-11-2020 tetanus toxoid, redu chris diphtheria toxoid, and acellular pertussis vaccine, adsorbed Rossy AMITA [facility] 09-10-2019 influenza virus vaccine, unspecified formulation Karla THAPA Work Phone: [facility] Payers Date Payer Category Payer Medicaid [id number] 2023 Unknown 2015 Unknown [id number] 1997 Unknown [id number] 2.16.8 [id number] 1997 Unknown [id number] 2.16.84 [id number] 1997 Unknown [id number] 2.16.84 [id number] 1997 Unknown [id number] 2.16.84 [id number] 1997 Unknown [id number] 2.16.84 [id number] 1997 Unknown [id number] 2.16.84 [id number] 1997 Unknown [id number] 2.16.84 [id number] 1997 Unknown [id number] 2.16.840 .[id number] 1997 Unknown [id number] 2.16.840 .[id number] 1997 Unknown [id number] 2.16.840 .[id number] 1997 Unknown [id number] 2.16.840. [id number] Social History Date Type Detail Facility Start: 03-09-2017 End: 03-10-2023 Tobacco smoking status MSIS Never smoker [facility] Start: 1995 Sex Assigned At Not on file [employer] Work Phone: Tobacco smoking status No Smokin g Status Entered [facility] Start: 05-23-2023 Sex Assigned At Female F [facility] Start: 03-10-2023 Tobacco use and exposure [...] of: ALANIS Zavala documented in this encounter [facility] Healthcare Evaluation + Plan note 02-27-2023 Note Date & Type Note Facility 02-27-2023 Evaluation + Plan note Diagnostic Tests PendingUrine Culture 02/27/23HIV Screen 4th Generation wRfx 02/27/23HCV Antibody RFX to Quant PCR 02/27/23Hepatitis B Surface Antigen 02/27/23RPR with Conf Rfx 02/27/23Rubella Antibody IgG 02/27/23Rubella Antibody IgM 02/27/23 [facility] Evaluation note Note Date & Type Note Facility Evaluation note Diagnosis Third trimester state, incidental documented in this encounter [facility] Hospital course Narrative Note Date & Type Note Facility Hospital course Narrative No data available for this section [facility] Hospital Discharge instructions Note Date & Type Note Facility Hospital Discharge instructions No data available for this section [facility] Progress note Note Date & Type Note Facility Progress note No data available for this section [facility] Summary Purpose Family History No Family History Records FoundNo Family History Records FoundNo Family History Records FoundNo Family History Records Found Advance Directives No Advanced Directives Records FoundNo Advanced Directives Records FoundNo Advanced Directives Records FoundNo Advanced Directives Records Found Instructions * Patient Instructions - Deirdre Aleman PA-C - 03/09/2017 6:54 PM EDT Follow up with [facility], If worse go to ED for further [...] Log into your personal health record on [email or web address] and enter M049 in the Education box to learn more about Exposure to Sexually Transmitted Infections: Care Instructions. Current as of: December 03, 2015 Content Version: 11.2 [id number] [employer]. Care instructions adapted under license by your healthcare professional. If you have questions about a medical condition or this instruction, always ask your healthcare professional. [employer] disclaims any warranty or liability for your use of this information. in this encounter History of Present Illness * Deirdre Aleman PA-C - 03/09/2017 6:50 PM EDT Formatting of this note may be different from the original. PATIENT NAME: Joselyn Matthews [facility] [address] [facility] [address] : 1995 DATE OF VISIT: 03/09/2017 #: [...] section and content) DATE CREATED AUTHOR 01/02/2018 [facility] DATE CREATED AUTHOR AUTHOR'S ORGANIZ ATION 01/17/2018 [facility] DATE CREATED AUTHOR AUTHOR'S ORGANIZ ATION 03/02/2023 [facility] DATE CREATED AUTHOR AUTHOR'S ORGANIZ ATION 09/10/2023 [facility] EPIC Reason for Visit (unrecogniz ed section and content) Reason Comments Exposure to STD boyfriend treated fo r chlamydia today Reason Comments Routine Visit Patient Care team informatio n (unrecognized section and content) 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 [employer] provides no warranty or guarantee of the accuracy or completeness of information in this document.
--- NOTE | 2023-09-19 15:57 | PC.NURSE ---
Marialuisa, sig. other and 4 day old Ben arrive for follow up visit. Mom and Dad pleased with process after going home. States was able to relax and just learn to feed the baby at the breast, responding to needs every 1-3 hours by feeding at the breast. Did not worry about pumping, as baby was very active at the breast and very content after feeds. Mom states that information shared by was very important and help ground her as she learned about the baby. No breast/nipple pain reported, full engorgement started around 0300 and has been feeding frequently. Is using the nipple shield for latching, but would like to stop as it interferes with milk supply and stimulation. [facility] staff nurse told her to use it as she had firm athletic breasts. Marialuisa's VSS and assessment WNL, states perineum tender with stitches but is using appropriate steps to care for self. Light bleeding reported as well. MONE Contreras's VSS and assessment WNL as well. Transcutaneous bili level is 11.2, reviewed bili with parents, verbalized understanding. Circ healing well, to continue to use A&D ointment for another 5-7 days. Weight is up since discharge and mom pleased and proud. Look what we did! Support and encouragement continued. Sig other pleased with progress as well. MONE Ben to breast mom independently latches baby and positions him well, uses shield for latch. Shield removed quickly and returned to breast, latches and slowly begins nursing well without the shield. Parents pleased. Parents will continue to offer without shield, using when needed and then removing and re latching once baby has flow of milk. Plan to return 09/26/2023 for further support. Family leaves ambulatory no concerns voiced.
[2023-09-19 16:09] VITALS: BP 122/84; PULSE 78; RESP 16; TEMP 36.8; O2SAT 96
--- OUTSIDE RECORDS SUMMARY | 2023-09-26 08:25 | XMS_ITS | CCD ---
Author Organization [facility] Care Team Providers Care Joiner Apprentice Name Role Phone NO, PHYSICIAN Unavailable Unavailable DEIRDRE ALEMAN Unavailable Unavailable SAIMA, MAXIM Unavailable Unavailable SAIMA, MAXIM Unavailable Unavailable BROCK GUEVARA Unavailable Unavailable SAIMA, MAXIM Unavailable Unavailable Unavailable Primary Care Provider UnavailDuran Saucedo Primary Care Physician [phone] Rossy AYERS Attending Unavailable Rossy AYERS Admitting Unavailable Duran Cleveland MD Primary Care Provider ROSSY AYERS Attending Unavailable KARLA MUHAMMAD Attending Unavailable CHRISTOPHER LAINEZ Attending Unavailab le ROSSY AYERS Attending Unavailable KARLA MUHAMMAD Attending Unavailable ROSSY AYERS Attending Unavailable KARLA MUHAMMAD Attending Unavailable ROSSY AYERS Attending Unavailable ROSSY AYERS Attending Unavailable ROSSY YAERS Attending Unavailable Allergies Allergy Classification Reported Allergen(s) Allergy Type Date of Onset Reaction(s) Facility (2 sources) Octacosanol Propensity to adverse reactions 3 [facility] Healthcare Work Phone: Medications Current Medications Medication Drug Class(es) Dates Sig (Normalized) Sig (Original) acetaminophen 325 mg / HYDROcodone bitartrate 5 mg oral tablet (1 source) Opioid Agonist Start: 08-11-2020 Morrison 325 mg-5 mg oral tablet 1 tab(s), [...] UA Negative Negative - 4(70) +++ mg/dL [facility] Blood, UA Negative Negative - 50 Maxime/mcL [facility] Clarity, UA Clear [facility] Color, UA Yellow [facility] Glucose, UA Negative Negative - 2000(110) ++++ mg/dL [facility] Interpretation and review of laboratory results Abnormal [facility] Ketones, UA Negative Negative - 160(16) ++++ mg/dL [facility] Leukocytes, UA Trace Negative - 500+++ Cassidy/mcL [facility] Nitrite, UA Negative Negative - Positive [facility] pH, UA 6.5 5 - 9 [facility] Protein, UA Negative Negative - 2000(20) ++++ mg/dL [facility] Spec Grav, UA 1.020 1 - 1.03 [facility] Urobilinogen, UA 0.2 0.2 - 12 mg/dL [facility] Cytology Cervical or vaginal smear or scraping studyOrdered By: Shivani Garcia on 03-21-2023 [facility] .Interpretation:on 3 HCV Ab IA Ql Comment Invalid Interpretation Code [facility] Comment on above: Result Comment: Not infected with HCV unless early or acute infection is suspected (which may be delayed in an immunocompromised individual), or other evidence exists to indicate HCV infection. Performed at: [address] [id number] PhD Ross Wise Performed By: #### 7 [id number], [id number], 08754522, 2894820, [id number], 665449458, 5347596319, 7006688, 289530358, 3752436 #### [facility] [address] [place] [address] C Urineon 03-01-2023 Bacteria identified Cx Nom (U) Microbiology PROCEDURE: Urine Culture [R1] SOURCE: U CleanCatch BODY SITE: COLLECTED DATE/TIME: 02/27/2023 16:35 EDT RECEIVED DATE/TIME: 02/27/2023 18:14 EDT START DATE/TIME: 02/27/2023 18:14 EDT FREE TEXT SOURCE: Rossy AYERS DO, DO, Corey R FINAL REPORTS Final Report [] Verified Date/Time: 03/01/2023 07:16 EDT 3,000 cfu/ml Mixed skin contaminants Performing Locations R1: This test was performed at: [facility], [address] [place] [address], [address]- , , Normal [facility] Comment on above: Performed By: #### 2 [id number] ####[facility] [address] [place] [address] HCV Antibody RFX to Quant PC Peterson 03-01-2023 HCV IgG IA Ql Non-Reactive Invalid Interpretation Code Non Reactive [facility] Comment on above: Result Comment: Perf ormed at: [facility] [address] [id number] PhD Ross Wise Performed By: #### 7 [id number], 51334172, 48973912, 6483276, 0779273262, 756139971, 7999295934, 0901209, 448932529, 6824539 #### [facility] [address] [place] [address] HIV Screen 4th Generation wR fxon 03-01-2023 HIV 1+2 Ab+HIV1 p24 Ag IA Ql Non-Reactive Invalid Interpretation Code Non Reactive [facility] Comment on above: Result Comment: HIV Negative HIV-1/HIV-2 antibodies and HIV-1 p24 antigen were NOT detected. There is no laboratory evidence of HIV infection. Performed at: [facility] [address] [id number] PhD Ross Wise Performed By: #### 7 26629146, 40803012, 99537863, 7515216, 1656853175, 947938597, 8105892986, 4842854, 881216418, 2458581 #### [facility] [address] [place] [address] Hep Bs Agon 03-01-2023 HBV surface Ag IA Ql Negative Invalid Interpretation Code Negative [facility] Comment on above: Result Comment: Perf ormed at: [address] [id number] PhD Ross Wise Performed By: #### 7 35668143, 28225380, 79994123, 7045705, 3652770574, 662582524, 2313696321, 3522257, 379983624, 7247003 ####[facility] [address] [place] [address] RPR with Conf Rfxon 03-01-20 Reagin Ab RPR Ql (S) Non-Reactive Invalid Interpretation Code Non Reactive [facility] Comment on above: Result Comment: Perf ormed at: [address] [id number] PhD Ross Wise Performed By: #### 7 60407851, 85483384, 19106339, 9012705, 7554685941, 768232212, 5942092251, 4284123, 511597048, 3501557 #### [facility] [address] [place] [address] Rubella IgGon 03-01-2023 Rubella virus IgG Qn (S) 11.40 [IU]/mL Invalid Interpretation Code Immune >0.99 [facility] Comment on above: Result Comment: Non- immune <0.90 Equivocal 0.90 - 0.99 Immune >0.99 Performed at: [address] [id number] PhD Ross Wise Performed By: #### 7 21537975, 23095244, 58065879, 9199661, 7649469400, 593747043, 0964801335, 4462283, 554890605, 2106100 ####[facility] [address] [place] [address] Rubella IgMon 03-01-2023 Rubella virus IgM IA Qn (S) <20.0 Invalid Interpretation Code 0.0-19.9 [facility] Comment on above: Result Comment: Nega tive <20.0 Equivocal 20.0 - 24.9 Positive >24.9 Performed at: [address] [id number] PhD Ross Wise Performed By: #### 7 [id number], 96692990, 53598892, 2575824, 2322205607, 212219176, 2509594370, 9482908, 706371308, 1217819 #### [facility] [address] [place] [address] [place] [address] ABO/Rhon 02-27-2023 ABO/Rh Positive Invalid Interpretation Code [facility] Comment on above: Performed By: #### 1 0965580, 9986063 ####[facility] [address] [place] [address] ABSCon 02-27-2023 ABSC Gel Interp Negative Normal [facility] Comment on above: Performed By: #### 1 7624367, 5349302 ####[facility] [address] [place] [address] BLOOD BANKOrdered By: Maxim Price on 02-27-2023 ABO/Rh Interp Positive Invalid Interpretation Code [facility] BB Subsection ABSC Gel Interp Negative (02/27/23 4:43 PM) Normal [facility] BB Subsection CBC w/Indiceson 02-27-2023 Erythrocyte distribution width (RBC) [Ratio] 12.8 % Normal 10.9-14.2 [facility] Comment on above: Performed By: #### 7 66065509, 59918806, 01697148, 7448805, 5629749847, 825386276, 9449336137, 4939795, 364721826, 9927147 #### [facility] [address] [place] [address] Hematocrit (Bld) [Volume fraction] 40.7 % Normal 34.0-46.0 [facility] Comment on above: Performed By: #### 7 13058795, 74705715, 28520354, 1085753, 9889422885, 651540320, 9788232754, 6170649, 603159257, 4990795 #### [facility] [address] [place] [address] Hemoglobin (Bld) [Mass/Vol] 14.0 g/dL Normal 12.0-16.0 [facility] Comment on above: Performed By: #### 7 80603645, 36490213, 18859931, 8897499, 8823000454, 132473393, 2079559391, 0375618, 029613385, 7703266 #### [facility] [address] [place] [address] MCH (RBC) [Entitic mass] 31.1 pg Normal 27.0-34.0 [facility] Comment on above: Performed By: #### 7 83638094, 69687847, 25094677, 5850979, 6728768837, 451012138, 0716834496, 5669392, 551849490, 1590383 #### [facility] [address] [place] [address] MCHC (RBC) [Mass/Vol] 34.4 g/dL Normal 31.4-36.0 [facility] Comment on above: Performed By: #### 7 27433782, 02614969, 28285992, 1010953, 2658239370, 837387148, 8940326584, 0085476, 520245834, 9687792 #### [facility] [address] [place] [address] MCV (RBC) [Entitic vol] 90.4 fL Normal 80.0-100.0 [facility] Comment on above: Performed By: #### 7 34112009, 63194518, 00614732, 6787645, 4726771016, 185861745, 2736459890, 3471540, 188452422, 3198883 #### [facility] [address] [place] [address] Platelet mean volume (Bld) [Entitic vol] 7.9 fL Normal 6.4-10.8 [facility] Comment on above: Performed By: #### 7 77401351, 82503540, 40682465, 9952419, 4576927375, 106272340, 1975036690, 7856679, 308316521, 7066815 #### [facility] [address] [place] [address] Platelets (Bld) [#/Vol] 312.0 E9/L Normal 150.0-500.0 [facility] Comment on above: Performed By: #### 7 21347115, 60824944, 69660236, 4049071, 4693402031, 010372136, 5181590299, 6304085, 485850978, 1393942 #### [facility] [address] [place] [address] RBC (Bld) [#/Vol] 4.5 E12/L Normal 4.3-5.9 [facility] Comment on above: Performed By: #### 7 52838699, 35988212, 75588685, 5015086, 5506799461, 729069834, 4528454477, 7449645, 692016252, 8698879 #### [facility] [address] [place] [address] WBC corrected for nucl RBC Auto (Bld) [#/Vol] 9.9 E9/L Normal 4.0-11.0 [facility] Comment on above: Performed By: #### 7 70891157, 85005565, 72029789, 6386292, 1631991710, 217460478, 5477026071, 6737916, 288937862, 4174673 #### [facility] [address] [place] [address] CHEMISTRYOrdered By: Cheko Segal on 02-27-2023 HbA1c (Bld) [Mass fraction] 5.0 % Normal <=5.9% [facility] ChemAutoSS CHEMISTRYOrdered By: SYSTEM SYSTEM on 02-27-2023 TSH Qn 2.85 m[IU]/L Normal 0.34 - 5.60 mcIU/mL [facility] Remisol Consent for Treatmenton 02-07 Consent for Treatment [id number]#1 .00CD:127 Normal [facility] HEMATOLOGYOrdered By: Maxim Price on 02-27-2023 [...] Normal 4.0 - 11.0 E9/L [facility] HemeAutoSS KtfP4amo 02-27-2023 HbA1c (Bld) [Mass fraction] 5.0 % Normal <=5.9 [facility] Comment on above: Performed By: #### 7 38885549, 29044606, 80942323, 7156029, 5527791515, 552362734, 0926954809, 6228704, 797367632, 5010371 #### [facility] [address] [place] [address] Physician Orderon 02-27-2023 Physician Order [id number] .00CD:127 Normal [facility] TSHon 02-27-2023 TSH Qn 2.85 m[IU]/L Normal 0.34-5.60 [facility] Comment on above: Performed By: #### 7 90151602, 04720166, 19871142, 4750932, 3194198409, 583863360, 2206213712, 9517833, 117171497, 5111605 #### [facility] [address] [place] [address] XR Ankle 3+ Views LTon 01-16 XR [...] 15:17Transcribed by: AYLIN 01/16/2018 15:17Technologist: MLR Normal [facility] CBC with Differentialon 0 Basophils Auto #/vol (Bld) 0.10 thou/mcL Normal 0.00-0.20 [facility] Comment on above: Performed By: #### 6 9742-5 ####[facility] [address] [place], [place] Basophils/100 WBC Auto (Bld) 0.8 % Normal 0.0-2.0 [facility] Comment on above: Performed By: #### 6 9742-5 ####[place] [address] [place], [place] Eosinophils 0.10 thou/mcL Normal 0.00-0.70 [facility] Comment on above: Performed By: #### 6 9742-5 ####[place] [address] [place], [place] Eosinophils/100 leukocytes 1.1 % Normal 0.0-7.0 [facility] Comment on above: Performed By: #### 6 9742-5 ####[place] [address] [place], [place] Erythrocyte distribution width Entitic volume (RBC) 13.2 % Normal 11.0-14.8 [facility] Comment on above: Performed By: #### 6 9742-5 ####[place] [address] [place], [place] Erythrocytes (RBC) 4.66 million/mcL Normal 3.80-5.10 [facility] Comment on above: Performed By: #### 6 9742-5 ####[place] [address] [place], [place] Hematocrit (HCT) 41.6 % Normal 35.0-45.0 [facility] Comment on above: Performed By: #### 6 9742-5 ####[place] [address] [address], [place] Hemoglobin mass conc (Bld) 14.5 g/dL Normal 12.0-16.0 [facility] Comment on above: Performed By: #### 6 9742-5 ####[place] [address] [place], [place] Lymphocytes 1.70 thou/mcL Normal 1.00-4.80 [facility] Comment on above: Performed By: #### 6 9742-5 ####[place] [address] [place] Lymphocytes/100 leukocytes 21.3 % Low 25.0-45.0 [facility] Comment on above: Performed By: #### 6 9742-5 ####[address] MCH 31.2 Picograms Normal 27.0-34.0 [facility] Comment on above: Performed By: #### 6 9742-5 ####[address] MCHC mass conc (RBC) 35.0 g/dL Normal 32.0-36.0 [facility] Comment on above: Performed By: #### 6 9742-5 ####[address] MCV 89.3 fL Normal 80.0-97.0 [facility] Comment on above: Performed By: #### 6 9742-5 ####[address] Monocytes 0.50 thou/mcL Normal 0.00-0.90 [facility] Comment on above: Performed By: #### 6 9742-5 ####[address] Monocytes/100 leukocytes 6.7 % Normal 2.0-8.0 [facility] Comment on above: Performed By: #### 6 9742-5 ####[address] Neutrophils 5.50 thou/mcL Normal 1.80-7.70 [facility] Comment on above: Performed By: #### 6 9742-5 ####[address] Neutrophils/100 WBC Auto (Bld) 70.1 % Normal 39.0-75.0 [facility] Comment on above: Performed By: #### 6 9742-5 ####[facility] [address], [place] Platelet mean volume Entitic volume (Bld) 8.1 FL Normal 6.2-12.1 [facility] Comment on above: Performed By: #### 6 9742-5 ####[facility] [address], [place] Platelets 314 thou/mcL Normal 142-424 [facility] Comment on above: Performed By: #### 6 9742-5 ####[facility] [address], [place] WBC (Leukocytes) 7.8 thou/mcL Normal 4.5-13.5 [facility] Comment on above: Performed By: #### 6 9742-5 ####[facility] [address] [place], [place] Comprehensive Metabolic Pane nilesh 09-12-2017 Alanine aminotransferase (ALT) 14 Units/L Normal 14-63 [facility] Comment on above: Performed By: #### 6 9405-9, 50302-7, 3040-3, 52423-8 ####[facility] [address] [place], [place] Albumin 4.3 g/dL Normal 3.5-4.8 [facility] Comment on above: Performed By: #### 6 9405-9, 92835-8, 3040-3, 32727-7 ####[facility] [address], [place] Alkaline phosphatase (ALP) 78 Units/L Normal 32-91 [facility] Comment on above: Performed By: #### 6 9405-9, 61359-1, 3040-3, 84815-4 ####[facility] [address] [place], [place] Anion gap 9.0 mmol/L Normal 6.0-18.0 [facility] Comment on above: Result Comment: PLEA SE NOTE:The calculated Anion Gap(AGAP) does not include Potassium. Performed By: #### 6 9405-9, 32202-2, 3040-3, 14791-3 ####[facility] [address] [place], [place] Aspartate aminotransferase (AST) 17 Units/L Normal 15-41 [facility] Comment on above: Performed By: #### 6 9405-9, 71125-3, 3040-3, 96959-2 ####[facility] [address] [place], [place] Bilirubin (total) 0.7 mg/dL Normal 0.3-1.2 [facility] Comment on above: Performed By: #### 6 9405-9, 52419-9, 3040-3, 18621-8 ####[facility] [address], [place] Calcium 9.8 mg/dL Normal 8.9-10.3 [facility] Comment on above: Performed By: #### 6 9405-9, 89839-1, 3040-3, 72406-5 ####[facility] [address] [place], [place] Chloride 103 mmol/L Normal 98-107 [facility] Comment on above: Performed By: #### 6 9405-9, 15868-9, 3040-3, 78174-5 ####[facility] [address], [place] CO2 29 mmol/L Normal 22-32 [facility] Comment on above: Performed By: #### 6 9405-9, 75729-4, 3040-3, 55293-5 ####[facility] [address] [place] Creatinine 0.87 mg/dL Normal 0.60-1.30 [facility] Comment on above: Performed By: #### 6 9405-9, 09635-6, 3040-3, 79627-8 ####[facility] [address] [place], [place] Glucose mass conc 89 mg/dL Normal 70-110 [facility] Comment on above: Performed By: #### 6 9405-9, 96242-0, 3040-3, 54735-3 ####[facility] [address] [place] Potassium molar conc 5.4 mmol/L High 3.6-5.1 [facility] Comment on above: Performed By: #### 6 9405-9, 51544-1, 3040-3, 35637-8 ####[facility] [address] [place] Protein 6.7 g/dL Normal 6.1-7.9 [facility] Comment on above: Performed By: #### 6 9405-9, 08021-9, 3040-3, 53590-3 ####[facility] [address] [place] Sodium 141 mmol/L Normal 136-145 [facility] Comment on above: Performed By: #### 6 9405-9, 63989-1, 3040-3, 95283-2 ####[facility] [address] [place] Urea nitrogen mass conc (BldV) 10 mg/dL Normal 8-20 [facility] Comment on above: Performed By: #### 6 9405-9, 66105-7, 3040-3, 85590-4 ####[facility] [address], [place] GFRaaon 09-12-2017 eGFR (black) mL/min/{1.73_m2} Normal [facility] Comment on above: Result Comment: The MDRD equation has not been validated for those over 70 years, women, patients with serious co-morbid conditions, or with extremes of bodysize, muscle mass of nutritional status. Performed By: #### 6 9405-9, 47996-3, 3040-3, 11224-6 ####[facility] [address], [place] GFRbbon 09-12-2017 eGFR (non-black) mL/min/{1.73_m2} Normal [facility] Comment on above: Performed By: #### 6 9405-9, 28278-0, 3040-3, 70156-2 ####[facility] [address] [place] Lipaseon 09-12-2017 Lipase 16 Units/L Low 22-51 [facility] Comment on above: Performed By: #### 6 9405-9, 81921-7, 3040-3, 30634-0 ####[facility] [address] [place], [place] Vital Signs Date Time Vital Sign Value Performing Clinician Facility 08-20-2023 10:00-0500 Body mass index (BMI) [Ratio] 27 kg/m2 Karla THAPA Work Phone: [facility] 08-20-2023 10:00-0500 Body weight 75.3 kg Karla Muhammad PA Work Phone: [facility] 08-20-2023 10:00-0500 Diastolic blood pressure 62 mm[Hg] Karla Muhammad PA Work Phone: [facility] 08-20-2023 10:00-0500 Systolic blood pressure 110 mm[Hg] Karla Muhammad PA Work Phone: [facility] 03-09-2017 18:37-0400 BMI (Body Mass Index) 22.43 kg/m2 Deirdre Aleman [facility] Work Phone: 03-09-2017 18:37-0400 Body Temperature 98.49 [degF] Deirdre Aleman [facility] Work Phone: 03-09-2017 18:37-0400 BP Diastolic 76 mm[Hg] Deirdre Aleman [employer] Work Phone: 03-09-2017 18:37-0400 BP Systolic 127 mm[Hg] Deirdre Aleman [facility] Work Phone: 03-09-2017 18:37-0400 Height 170.2 cm Deirdre Aleman [facility] Work Phone: 03-09-2017 18:37-0400 Pulse (Heart Rate) 61 /min Deirdre Aleman [facility] Work Phone: 03-09-2017 18:37-0400 Pulse Oximetry 98 % Deirdre Aleman [facility] Work Phone: 03-09-2017 18:37-0400 Respiratory Rate 18 /min Deirdre Aleman [employer] Work Phone: 03-09-2017 18:37-0400 Weight 64.95 kg Deirdre Aleman [facility] Work Phone: Encounters Encounter Date Encounter [...] Start: 05-23-2023 End: 05-23-2023 ambulatory CHRISTOPHER A MORENOILLER Not Available Start: 05-22-2023 End: 05-22-2023 ambulatory ROSSY AMITA Not Available Start: 02-27-2023 End: 02-28-2023 ambulatory Rossy R AMITA Facility:[facility] Start: 02-27-2023 End: 02-27-2023 Patient encounter procedure Rossy R AMITA [facility] Start: 01-17-2018 End: 01-17-2018 Patient encounter BROCK GUEVARA Facility:[facility] Start: 09-13-2017 End: 09-13-2017 Patient encounter MAXIM LANDAVERDE Facility:[facility] Start: 03-09-2017 End: 03-09-2017 Ambulatory PHYSICIAN NO [facility] [place] Start: 03-09-2017 End: 03-09-2017 Office outpatient new 30 minutes Deirdre Aleman Work Phone: [facility] Beatris Koenig Comment on above: STD exposure (Primar y Dx) Procedures Date Procedure Procedure Detail Performing Clinician Start: 08-20-2023 Urnls dip stick/tabl et rgnt non-auto w/o micrscp Karla Muhammad PA Work Phone: Start: 03-21-2023 Cytp cerv/vag auto t hin layer prep mnl screen Rossy Ayers DO Work Phone: None (qualifier value) Rossy ORELLANAO Plan of Treatment Date Care Activity Detail Author Start: 01-06-2024 Influenza vaccination Influenza Vacc ine (#1) [facility] Comment on above: Postponed from 03/09 (Patient Refused) Start: 08-27-2023 End: 08-27-2023 Patient encounter procedure 08/27/2023 8:40 AM EST Routine [facility] [address] [place] [id number] Rossy Ayers, DO [address] [place] [address] [facility] Start: 03-09-2017 SEQUENTIAL INFLUENZA VACCINE (#1) SEQUENTIAL INFLUENZA VACCINE (#1) [facility] Work Phone: Start: 2008 HPV VACCINES (1 of 3 - Female 3 Dose Series) HPV VACCINES (1 of 3 - Female 3 Dose Series) [facility] Work Phone: Start: 1997 TETANUS EVERY 10 YR TETANUS EVERY 10 YR [facility] Work Phone: Chlamydia/GC/Trichom katarzyna s Amplified RNA Chlamydia/GC/Trichomona s Amplified RNA Routine STD exposure Ordered: 03/09/2017 [facility] Work Phone: Comment on above: Ordered: 03/09/2017 Chlamydia/Gonorrhoea e Amplified RNA Chlamydia/Gonorrhoeae Amplified RNA Routine STD exposure Ordered: 03/09/2017 [facility] Work Phone: Comment on above: Ordered: 03/09/2017 Trichomonas vaginali s Amplified RNA Trichomonas vaginalis Amplified RNA Routine STD exposure Ordered: 03/09/2017 [employer] Work Phone: Comment on above: Ordered: 03/09/2017 Immunizations Immunization Date Immunization Notes Care Provider Fa stanley 08-11-2020 tetanus toxoid, redu chris diphtheria toxoid, and acellular pertussis vaccine, adsorbed Rossy AMITA [facility] 09-10-2019 influenza virus vaccine, unspecified formulation Karla THAPA Work Phone: [facility] Payers Date Payer Category Payer Medicaid [id number] 2023 Unknown 2015 Unknown [id number] 1997 Unknown [id number] 2.16.8 [id number] 1997 Unknown [id number] 2.16.84 [id number] 1997 Unknown [id number] 2.16.84 [id number] 1997 Unknown [id number] 2.16.84 [id number] 1997 Unknown [id number] 2.16.84 [id number] 1997 Unknown [id number] 2.16.84 0.1.150217.3.579.2.1259 1997 Unknown [id number] 2.16.84 0.1.748858.3.579.2.1259 1997 Unknown [id number] 2.16.840 .1.492400.3.579.2.1259 1997 Unknown [id number] 2.16.840 .[id number] 1997 Unknown [id number] 2.16.840 .1.338475.3.579.2.1259 1997 Unknown [id number] 2.16.840. [id number] Social History Date Type Detail Facility Start: 03-09-2017 End: 03-10-2023 Tobacco smoking status NYIS Never smoker [facility] Start: 1997 Sex Assigned At Not on file [facility] [employer] Work Phone: Tobacco smoking status No Smokin g Status Entered [facility] Start: 05-23-2023 Sex Assigned At Female F [facility] Start: 03-10-2023 Tobacco use and exposure [...] Not at all [facility] (I/We) worried [facility] (my/our) food would run out before [...] of: ALANIS Zavala documented in this encounter [facility] Healthcare Evaluation + Plan note 02-27-2023 Note Date & Type Note Facility 02-27-2023 Evaluation + Plan note Diagnostic Tests PendingUrine Culture 02/27/23HIV Screen 4th Generation wRfx 02/27/23HCV Antibody RFX to Quant PCR 02/27/23Hepatitis B Surface Antigen 02/27/23RPR with Conf Rfx 02/27/23Rubella Antibody IgG 02/27/23Rubella Antibody IgM 02/27/23 [facility] Evaluation note Note Date & Type Note Facility Evaluation note Diagnosis Third trimester state, incidental documented in this encounter [facility] Healthcare Hospital course Narrative Note Date & Type Note Facility Hospital course Narrative No data available for this section [facility] Hospital Discharge instructions Note Date & Type Note Facility Hospital Discharge instructions No data available for this section [facility] Progress note Note Date & Type Note Facility Progress note No data available for this section [facility] Summary Purpose Family History No Family History Records FoundNo Family History Records FoundNo Family History Records FoundNo Family History Records Found Advance Directives No Advanced Directives Records FoundNo Advanced Directives Records FoundNo Advanced Directives Records FoundNo Advanced Directives Records Found Instructions * Patient Instructions - Deirdre Aleman PA-Mehdi - 03/09/2017 6:54 PM EDT Follow up with [facility], If worse go to ED for further [...] Log into your personal health record on [email or web address] and enter M049 in the Education box to learn more about Exposure to Sexually Transmitted Infections: Care Instructions. Current as of: December 03, 2015 Content Version: 11.2 5741-2738 [employer]. Care instructions adapted under license by your healthcare professional. If you have questions about a medical condition or this instruction, always ask your healthcare professional. [employer] disclaims any warranty or liability for your use of this information. in this encounter History of Present Illness * Deirdre Aleman PA-C - 03/09/2017 6:50 PM EDT Formatting of this note may be different from the original. PATIENT NAME: Joselyn Matthews [facility] [address] [facility] [address] : 1995 DATE OF VISIT: 03/09/2017 #: [...] section and content) DATE CREATED AUTHOR 01/02/2018 [facility] DATE CREATED AUTHOR AUTHOR'S ORGANIZ ATION 01/17/2018 [facility] DATE CREATED AUTHOR AUTHOR'S ORGANIZ ATION 03/02/2023 [facility] DATE CREATED AUTHOR AUTHOR'S ORGANIZ ATION 09/10/2023 [facility] EPIC Reason for Visit (unrecogniz ed section and content) Reason Comments Exposure to STD boyfriend treated fo r chlamydia today Reason Comments Routine Visit Patient Care team informatio n (unrecognized section and content) Joiner Apprentice Relationship Specialty Start Date End Date Duran Cleveland MD [address] [place] [address] PCP - General Family Medicine 01/29/23 FOR [...] BE BASED ON THE PRIMARY CLINICAL RECORDS. [facility]. provides no warranty or guarantee of the accuracy or completeness of information in this document.
== END 2023-09-19 16:17 | disposition home or self-care (01) ==
LOC: FBCO 08:41
PROVIDERS: Family Provider Family Medicine; Visit Provider Obstetrics & Gynecology
DX: Z39.2 Encounter for routine postpartum follow-up (principal)

== ENCOUNTER 2025-03-03 20:20 | Outpatient (REF) | payer MEDICAID, SELFPAY ==
--- OUTSIDE RECORDS SUMMARY | 2025-02-17 11:40 | XMS_ITS | Encounter Summary ---
Author Organization [facility] Address [address] [place] [address] Care Team Providers Care Guitar Repair Technician Name Role Phone Duran Cleveland MD Primary Care Provider [phone] Reason for Visit * Reason Comments Contraception Encounter Details Date Type Department Care Team (Late st Contact Info) Description 02/17/2025 11:40 AM EDT Office Visit MA[facility]ENDRA [facility] [address] [place] [phone] [address] [place] [address] [place], [place] [address] Encounter for initial prescription of contraceptives, unspecified contraceptive Social History Tobacco Use Types Packs/Day Years Used Date Smoking Tobacco: Never Smokeless Tobacco: Never Alcohol Use Standard Drinks/Week Comments Not Currently 0 (1 standard drink = 0.6 oz pure alcohol) Alcohol: 1 or 2 drinks on a typical day/monthly or less Caffeine: soda/pop, coffee daily Humiliation, Afraid, Rape, and Kick questionnair e Answer Date Recorded Within the last year, have y ou been afraid of your partner or ex-partner? No 05/23/2023 Within the last year, have y ou been humiliated or emotionally abused in other ways by your partner or ex-partner? No Within the last year, have y ou been kicked, hit, slapped, or otherwise physically hurt by your partner or ex-partner? No 05/23/2023 Within the last year, have y ou been raped or forced to have any kind of sexual activity by your partner or ex-partner? No 05/23/2023 Social Connection and Isolat ion Panel [NHANES] Answer Date Recorded In a typical week, how many times do you talk on the phone with family, friends, or neighbors? More than three times a week 05/23/2023 How often do you get togethe r with friends or relatives? Twice a week 05/23/2023 How often do you attend chur or methodist services? Never 05/23/2023 Do you belong to any clubs o r organizations such as latter day groups, unions, fraternal or athletic groups, or school groups? No 05/23/2023 How often do you attend meet ings of the clubs or organizations you belong to? Never 05/23/2023 Are you , , di vorced, , never , or living with a partner? Never 05/23/2023 AUDIT-C Answer Date Recorded Q1: How often do you have a drink containing alcohol? Never 05/23/2023 Q2: How many drinks containi ng alcohol do you have on a typical day when you are drinking? Patient does not drink Q3: How often do you have si x or more drinks on one occasion? Never 05/23/2023 Overall Financial Resource Strain (CARDIA) Answe r Date Recorded How hard is it for you to pa y for the very basics like food, housing, medical care, and heating? Somewhat hard 05/23/2023 [facility] - Occupational Stress Questionnaire Answer Date Recorded Do you feel stress - tense, restless, nervous, or anxious, or unable to sleep at night because your mind is troubled all the time - these days? Not at all 05/23/2023 Exercise Vital Sign Answer Date Recorde d On average, how many days pe r week do you engage in moderate to strenuous exercise (like a brisk walk)? 4 days 05/23/2023 On average, how many minutes do you engage in exercise at this level? 60 min 05/23/2023 Hunger Vital Sign Answer Date Recorded Within the past 12 months, y ou worried that your food would run out before you got the money to buy more. Never true 05/23/20 23 Within the past 12 months, t he food you bought just didn't last and you didn't have money to get more. Never true 05/23/2023 PRAPARE - Transportation Answer Date Re corded In the past 12 months, has l ack of transportation kept you from medical appointments or from getting medications? No 05/09 In the past 12 months, has l ack of transportation kept you from meetings, work, or from getting things needed for daily living? No 05/23/2023 Housing Stability Vital Sign Answer Richard e Recorded In the last 12 months, was t here a time when you were not able to pay the mortgage or rent on time? No 05/23/2023 In the last 12 months, how many places have you lived? 2 05/23/2023 In the last 12 months, was t here a time when you did not have a steady place to sleep or slept in a halfway (including now)? No 05/23/2023 Comments Unknown Sex and Gender Information Value Date Recorded Sex Assigned at Not on file Legal Sex Female 7:27 PM EDT Gender Identity Female 09/20/2022 7:27 PM EDT Sexual Orientation Not on file documented as of this encounter Last Filed Vital Signs Vital Sign Reading Time Taken Comments Blood Pressure 124/80 02/17/2025 12:06 PM EDT Pulse - - Temperature - - Respiratory Rate - - Oxygen Saturation - - Inhaled Oxygen Concentration - - Weight 65.4 kg (144 lb 1.9 oz) 02/17/2025 12:06 PM EDT Height - - Body Mass Index 23.44 01/07/2021 12:00 PM EDT documented in this encounter Progress Notes * ALANIS Zavala - 02/17/2025 11:40 AM EDT Reason for Appointment: Patient ID: Marialuisa Goode is a 29 y.o. female who presents for Contraception Patient presents today for Acute Visit. MEDICATIONS Current Outpatient Medications Medication Instructions levonorgestrel-ethinyl estradiol (Jolessa) 0.15-0.03 MG tablet 1 tablet, Oral, Daily, Take 1 tabletby mouth daily ALLERGIES Allergies Allergen Reactions Seasonal Ic [Octacosanol] PROBLEMS Active Ambulatory Problems Diagnosis Date Noted No Active Ambulatory Problems Resolved Ambulatory Problems Diagnosis Date Noted No Resolved Ambulatory Problems Past Medical History: Diagnosis Date Allergic HISTORY PAST MEDICAL HISTORY SOCIAL HISTORY Past Medical History: Diagnosis Date Allergic Social History Tobacco Use Smoking status: Never Smokeless tobacco: Never Substance Use Topics Alcohol use: Not Currently Comment: Alcohol: 1 or 2 drinks on a typical day/monthly or less Caffeine: soda/pop, coffee daily Drug use: Not Currently Frequency: 2.0 times per week Types: Marijuana FAMILY HISTORY Family History Problem Relation Name Age of Onset Nephrolithiasis Mother Cancer Maternal Grandmother Niki SURGICAL HISTORY Past Surgical History: Procedure Laterality Date OTHER SURGICAL HISTORY Nexplanon inserted (12/14/20), removed (04/22/20) PAP SMEAR 04/06/2020 nilm REVIEW OF SYSTEMS Review of Systems: Review of Systems Constitutional: Negative. HENT: Negative. Eyes: Negative. Respiratory: Negative. Cardiovascular: Negative. Gastrointestinal: Negative. Genitourinary: Negative. Musculoskeletal: Negative. Skin: Negative. Neurological: Negative. All other systems reviewed and are negative. Hematological: Negative. Endocrine: Negative. Allergic/Immunologic: Negative. OBJECTIVE Objective: Physical Exam Constitutional: Appearance: Normal appearance. She [...] reviewed. Vitals: Estimated body mass index is 23.44 kg/m?? as calculated from the following: Height as of 01/07/21: 5' 5.75 . Weight as of this encounter: 144 lb 1.9 oz. BP: 124/80 Patient's last menstrual period was 01/15/2025. ASSESSMENT & PLAN ICD-10-CM 1. Encounter for initial prescription of contraceptives, unspecified contraceptive Z30.019 POCT , urine manually resulted levonorgestrel-ethinyl estradiol (Jolessa) 0.15-0.03 MG tablet Patient presents wishing to start back on oral contraception. We will call in medication to pharmacy of choice. She is healthy with no medical issues or concerns Documented by ALANIS Zavala on behalf of: ALANIS Zavala documented in this encounter Plan of Treatment Upcoming Encounters Date Type Department Care Team (Late st Contact Info) Description 03/08/2026 10:00 AM EDT Procedure Visit [facility] [address] [place] [address] [place] [address] [place] [address] documented as of this encounter Procedures Procedure Name Priority Date/Time Associated Diagnosis Comments POCT , URINE Routine 02/17/2025 12:14 PM EDT Encounter for initial prescription of contraceptives, unspecified contraceptive documented in this encounter Results * POCT , urine manually resulted (02/17/2025 12:14 PM EDT) Preg Test, Ur Negative Negative Urine 02/17/2025 12:1 4 PM EDT Karla THAPA POINT OF CARE TEST ENTER/EDIT OR DERABLES Final Result documented in this encounter Visit Diagnoses Diagnosis Encounter for initial prescription of contraceptives, unspecified contraceptive documented in this encounter Care Teams Guitar Repair Technician Relationship Specialty Start Date End Date Duran Cleveland MD [address] [place] [address] PCP - General Family Medicine 01/29/23 documented as of this encounter
--- OUTSIDE RECORDS SUMMARY | 2025-03-03 13:30 | XMS_ITS | Encounter Summary ---
Author Organization [facility] Address [address] [place] [address] Care Team Providers Care Entertainment Usher Name Role Phone Duran Cleveland MD Primary Care Provider Reason for Visit * Reason Comments Well Women Visit Encounter Details Date Type Department Care Team (Latest Contact Info) Description 03/03/2025 1:30 PM EDT Procedure Visit [facility] [address] [place] [address] [address] [place] [address] [place], [facility] Well woman exam with routine gynecological exam Social History Tobacco Use Types Packs/Day Years [...] How often do you attend chur or congregational services? Never 05/23/2023 Do you belong to any clubs o r organizations such as roman catholic groups, unions, fraternal or athletic groups, or [...] medical care, and heating? Somewhat hard 05/23/2023 [facility] ionnh Health - Occupational Stress Questionnaire Answer Date [...] place to sleep or slept in a mcc (including now)? No 05/23/2023 Comments Unknown Sex and Gender Information Value Date Recorded Sex Assigned at Not on file Legal Sex Female 7:27 PM EDT Gender Identity Female 09/20/2022 7:27 PM EDT Sexual Orientation Not on file documented as of this encounter Last Filed Vital Signs Vital Sign Reading Time Taken Comments Blood Pressure 110/74 03/03/2025 1:52 PM EDT Pulse - - Temperature - - Respiratory Rate - - Oxygen Saturation - - Inhaled Oxygen Concentration - - Weight 65.2 kg (143 lb 12.8 oz) 03/03/2025 1:52 PM EDT Height - - Body Mass Index 23.39 01/07/2021 12:00 PM EDT documented in this encounter Progress Notes * ALANIS Zavala - 03/03/2025 1:30 PM EDT Reason for Appointment: Patient ID: Marialuisa Goode is a 29 y.o. female who presents for Well Women Visit Patient presents today for Annual Exam. MEDICATIONS Current Outpatient Medications Medication Instructions levonorgestrel-ethinyl [...] Objective: Physical Exam Constitutional: Appearance: Normal appearance. Genitourinary: Right Adnexa: not tender and no mass present. Left Adnexa: not tender and no mass present. No cervical discharge. Breasts: Breasts are soft. Right: Normal. Left: Normal. HENT: Head: Normocephalic. Nose: Nose normal. Mouth/Throat: Mouth: Mucous membranes are moist. Cardiovascular: Rate and Rhythm: Normal rate. Pulmonary: Effort: Pulmonary effort is normal. Abdominal: General: Bowel sounds are normal. Palpations: Abdomen is soft. Musculoskeletal: General: Normal range of motion. Cervical back: Normal range of motion. Neurological: General: No focal deficit present. Mental Status: She is alert. Skin: General: Skin is warm and dry. Psychiatric: Mood and Affect: Mood normal. Vitals and nursing note reviewed. Exam conducted with a costume cutter present. Vitals: Estimated body mass index is 23.39 kg/m?? as calculated from the following: Height as of 01/07/21: 5' 5.75 . Weight as of this encounter: 143 lb 12.8 oz. BP: 110/74 Patient's last menstrual period was 01/15/2025. ASSESSMENT & PLAN ICD-10-CM 1. Well woman exam with routine gynecological exam Z01.419 Pap Smear Annual Exam: Patient presents today for an annual exam. Patient states she is doing well and has no complaints. Pap was obtained without difficulty. No orders of the defined types were placed in this encounter. Follow Up: Patient is to return in one year for annual unless needed otherwise. Documented by ALANIS Zavala on behalf of: ALANIS Zavala documented in this encounter Plan of Treatment Upcoming Encounters Date Type Department Care Team (Late st Contact Info) Description 03/08/2026 10:00 AM EDT Procedure Visit [facility] [address] [place] [address] [address] [place] [address] [place] [address] Scheduled Orders Name Type Priority Associated Diagnoses Orde r Schedule Pap Smear Pathology and Cytology Routine Well woman exam with routine gynecological exam Ordered: 03/03/2025 documented as of this encounter Visit Diagnoses Diagnosis Well woman exam with routine gynecological exam Routine gynecological examination documented in this encounter Care Teams Entertainment Usher Relationship Specialty Start Date End Date Duran Cleveland MD [address] [place] [address] PCP - General Family Medicine 01/29/23 documented as of this encounter
--- OUTSIDE RECORDS SUMMARY | 2025-03-03 20:24 | XMS_ITS | Encounter Summary ---
Author Organization [facility] Address [address] [place] [address] Care Team Providers Care Soap Press Feeder Name Role Phone Duran Cleveland MD Primary Care Provider [phone] Encounter Details Date Type Department Care Team (Late Contact Info) Description 04/17/2023 Abstract [facility] [address] [place] [id number] [place] [address] [place] [address] Social History Tobacco Use Types Packs/Day Years Used Date Smoking Tobacco: Never Smokeless Tobacco: Never Alcohol Use Standard Drinks/Week Comments Yes 0 (1 standard drink = 0.6 oz pure alcohol) Alcohol: 1 or 2 drinks on a typical day/monthly or less Caffeine: soda/pop, coffee daily Comments Yes Sex and Gender Information Value Date Recorded Sex Assigned at Not on file Legal Sex Female 7:27 PM EDT Gender Identity Female 09/20/2022 7:27 PM EDT Sexual Orientation Not on file COVID-19 Exposure Response Date Recorded In the last 10 days, have yo u been in contact with someone who was confirmed or suspected to have Coronavirus/COVID-19? No / Unsure 04/16/2023 3:38 PM EDT documented as of this encounter Plan of Treatment Upcoming Encounters Date Type Department Care Team (Late Contact Info) Description 03/08/2026 10:00 AM EDT Procedure Visit MAHENDRA URIBE [address] [place] [address] [place] [address] [place] [address] [place], [place] [id number] documented as of this encounter Visit Diagnoses Not on filedocumented in this encounter Care Teams Soap Press Feeder Relationship Specialty Start Date End Date Duran Cleveland MD [address] [place] [address] PCP - General Family Medicine 01/29/23 documented as of this encounter
--- OUTSIDE RECORDS SUMMARY | 2025-03-03 20:24 | XMS_ITS | Encounter Summary ---
Author Organization [facility] Address [address] [place] [address] Care Team Providers Care Attorney Law Clerk Name Role Phone Duran Cleveland MD Primary Care Provider [phone] Encounter Details Date Type Department Care Team (Late st Contact Info) Description 02/17/2025 Bamboo flowsheet [facility] [address] [place] [address] [place] [address] [facility] [address] [place], [facility] Social History Tobacco Use Types Packs/Day Years [...] 05/23/2023 How often do you attend chur ch or pentecostal services? Never 05/23/2023 Do you belong to any clubs o r organizations such as rastafari groups, unions, fraternal or athletic groups, or [...] medical care, and heating? Somewhat hard 05/23/2023 [facility] Health - Occupational Stress Questionnaire Answer Date [...] place to sleep or slept in a jail (including now)? No 05/23/2023 Comments Unknown Sex and Gender Information Value Date Recorded Sex Assigned at Not on file Legal Sex Female 7:27 PM EDT Gender Identity Female 09/20/2022 7:27 PM EDT Sexual Orientation Not on file documented as of this encounter Plan of Treatment Upcoming Encounters Date Type Department Care Team (Late st Contact Info) Description 03/08/2026 10:00 AM EDT Procedure Visit [facility] [address] [facility] [place] [address] [place] [address] [facility] [place] [address] documented as of this encounter Visit Diagnoses Not on filedocumented in this encounter Care Teams Attorney Law Clerk Relationship Specialty Start Date End Date Duran Cleveland MD [address] [place] [address] PCP - General Family Medicine 01/29/23 documented as of this encounter
--- OUTSIDE RECORDS SUMMARY | 2025-03-03 20:24 | XMS_ITS | Encounter Summary ---
Author Organization [facility] Address [address] [place] [address] Care Team Providers Care Lawn And Garden Technician Name Role Phone Duran Cleveland MD Primary Care Provider [phone] Encounter Details Date Type Department Care Team (Late st Contact Info) Description 09/10/2023 Clinisync Result Encounter [facility] External Department Unsolicited Rossy Ayers, DO [address] [facility] [place] [address] Social History Tobacco Use Types Packs/Day Years [...] often do you attend chur ch or mu-ism services? Never 05/23/2023 Do you belong to any clubs o r organizations such as yarsani groups, unions, fraternal or athletic groups, or [...] medical care, and heating? Somewhat hard 05/23/2023 [facility] of Occupat ional Health - Occupational Stress [...] place to sleep or slept in a alf (including now)? No 05/23/2023 Comments Yes Sex and Gender Information Value Date Recorded Sex Assigned at Not on file Legal Sex Female 7:27 PM EDT Gender Identity Female 09/20/2022 7:27 PM EDT Sexual Orientation Not on file documented as of this encounter Plan of Treatment Upcoming Encounters Date Type Department Care Team (Late st Contact Info) Description 03/08/2026 10:00 AM EDT Procedure Visit [facility] OBGYN [address] [facility] [place] [address] [address] PA [address] [facility] [place] [address] documented as of this encounter Procedures Procedure Name Priority Date/Time Associated Diagnosis Comments OB GROWTH 09/10/2023 2:54 PM EST documented in this encounter Results * OB GROWTH (09/10/2023 2:54 PM EST) Anatomical Region Laterality Modality Other 09/10/2023 2:54 PM EST Narrative 09/10/2023 2:57 PM EST [facility] [address] [place] [address] Ultrasound Report Signed Patient: MARIALUISA GOODE MR#: [id number] : 1995 Acct:[id number] Age/Sex: 28 / F ADM Date: 09/10/23 Loc: [facility] Attending Dr: Rossy Ayers D.O. Ordering Physician: Rossy Ayers D.O. Date of Service: 09/10/23 Procedure(s): US OB growth Accession Number(s): [id number] cc: Rossy Ayers D.O.; Physician,Non-Staff [place] [address] Patient Name: MARIALUISA GOODE MRN: [facility]:[id number] date: 1995 Sex: F Assigned Patient [facility]: [facility] Current Patient Location: [facility] Accession/Order Number: [id number] Exam Date: 09/10/2023 13:44 Report Date: 09/10/2023 14:54 At the request of: ROSSY AYERS Procedure: US OB growth EXAMINATION: US OB growth HISTORY: LGA COMPARISON: No relevant comparison available. FINDINGS: Heart Rate: 138.0 bpm Amniotic Fluid Volume: 14.8 cm Number: 1.0 Position: Cephalic presentation, longitudinal lie Maximum Vertical Pocket: 4.7 cm cm 1.3 cm cm 5.3 cm cm 3.5 cm cm BIOMETRY: BPD: 9.2 cm cm; 37 weeks 3 days; 58% HC: 33.2 cmcm; 37 weeks 6 days , 25% AC: 34.1 cm cm; 38 weeks 0 days, 65% FL: 7.1 cm cm; 36 weeks 2 days; 11.5 % % EFW: 3232.2 grams, 7 lbs. 2 oz., 47% FL/AC: 20.7 FL/BPD: 76.6 HC/AC: 1.0 GESTATIONAL AGE: Age by EDC: 38 weeks 1 days MAGGI by EDC: 09/23/2023 Age by US: 37 weeks 3 days MAGGI by US: 09/28/2023 US/US OB growth IMPRESSION: Normal interval growth Electronically authenticated by: ERICA HARKINS Date: 09/10/2023 14:54 Dictated By: Erica Harkins M.D. Signed By: 09/10/23 1457 DD/ 145 TD/TT: Behavioral Health Technician: Procedure Note Radiology, Radiologist, - 09/10/2023 [place] [address] Ultrasound Report Signed Patient: MARIALUISA GOODE OMR#: [id number] : 1995Acct:[id number] Age/Sex: 28 / FADM Date: 09/10/23 Loc: [facility] Attending Dr: Rossy Ayers D.O. Ordering Physician: Rossy Ayers D.O. Date of Service: 09/10/23 Procedure(s): US OB growth Accession Number(s): [id number] cc: Rossy Ayers D.O.; Physician,Non-Staff [place] [id number] Patient Name: MARIALUISA GOODE MRN: [facility]:[id number] date: 1995 Sex: F Assigned Patient Location: [facility] Current Patient Location: [facility] Accession/Order Number: [id number] Exam Date: 09/10/2023 13:44 Report Date: 09/10/2023 14:54 At the request of: ROSSY AYERS Procedure: US OB growth EXAMINATION: US OB growth HISTORY: LGA COMPARISON: No relevant comparison available. FINDINGS: Heart Rate: 138.0 bpm Amniotic Fluid Volume: 14.8 cm Number: 1.0 Position: Cephalic presentation, longitudinal lie Maximum Vertical Pocket: 4.7 cm cm 1.3 cm cm 5.3 cm cm 3.5 cm cm BIOMETRY: BPD: 9.2 cm cm; 37 weeks 3 days; 58% HC: 33.2 cmcm; 37 weeks 6 days , 25% AC: 34.1 cm cm; 38 weeks 0 days, 65% FL: 7.1 cm cm; 36 weeks 2 days; 11.5 % % EFW: 3232.2 grams, 7 lbs. 2 oz., 47% FL/AC: 20.7 FL/BPD: 76.6 HC/AC: 1.0 GESTATIONAL AGE: Age by EDC: 38 weeks 1 days MAGGI by EDC: 09/23/2023 Age by US: 37 weeks 3 days MAGGI by US: 09/28/2023 US/US OB growth IMPRESSION: Normal interval growth Electronically authenticated by: ERICA HARKINS Date: 09/10/2023 14:54 Dictated By: Erica Harkins M.D. Signed By:09/10/23 1457 DD/ TD/TT: Behavioral Health Technician: us Rossy Andria DO [facility] Final Result documented in this encounter Visit Diagnoses Not on filedocumented in this encounter Care Teams Lawn And Garden Technician Relationship Specialty Start Date End Date Duran Cleveland MD [address] [place] [address] PCP - General Family Medicine 01/29/23 documented as of this encounter
--- OUTSIDE RECORDS SUMMARY | 2025-03-03 20:24 | XMS_ITS | Encounter Summary ---
Author Organization [facility] Address [address] [place] [address] Care Team Providers Care Systems Engineer Name Role Phone Duran Cleveland MD Primary Care Provider [phone] Encounter Details Date Type Department Care Team (Late st Contact Info) Description 09/15/2023 Abstract [facility] [address] [facility] [place] [address] Kandy Lujan LPN Social History Tobacco Use Types Packs/Day Years [...] often do you attend chur ch or amish services? Never 05/23/2023 Do you belong to [...] medical care, and heating? Somewhat hard 05/23/2023 [facility] of Occupat ional Health - Occupational Stress [...] AM EDT Procedure Visit MAHENDRA URIBE [address] [place] [address] PA [address] [facility] [place] [address] documented as of this encounter Visit Diagnoses Not on filedocumented in this encounter Care Teams Systems Engineer Relationship Specialty Start Date End Date Duran Cleveland MD [address] [place] [address] PCP - General Family Medicine 01/29/23 documented as of this encounter
--- OUTSIDE RECORDS SUMMARY | 2025-03-03 20:24 | XMS_ITS | Encounter Summary ---
Author Organization [facility] Address [address] [place] [address] Care Team Providers Care Rug Setter Axminster Name Role Phone Duran Cleveland MD Primary Care Provider [phone] Encounter Details Date Type Department Care Team (Late st Contact Info) Description 03/03/2025 Bamboo flowsheet [facility] Isabel OBGYLee [address] [facility] [place] [address] PA [address] [facility] [address] [place], [facility] Social History Tobacco Use Types Packs/Day Years [...] often do you attend chur ch or tenriism services? Never 05/23/2023 Do you belong to any clubs o r organizations such as latter-day groups, unions, fraternal or athletic groups, or [...] medical care, and heating? Somewhat hard 05/23/2023 [facility] of Occupat ional Health - Occupational [...] place to sleep or slept in a penitentiary (including now)? No 05/23/2023 Comments Unknown Sex [...] EDT Procedure Visit [facility] Isabel URIBE [address] [facility] [address] [place] [address] PA [address] [place] [address] documented as of this encounter Visit Diagnoses Not on filedocumented in this encounter Care Teams Rug Setter Axminster Relationship Specialty Start Date End Date Duran Clevleand MD [address] [place] [address] PCP - General Family Medicine 01/29/23 documented as of this encounter
--- OUTSIDE RECORDS SUMMARY | 2025-03-03 20:24 | XMS_ITS | Clinical Summary ---
Author Organization [facility] Address [address] [place] [address] Care Team Providers Care Seat Cover Cutter Name Role Phone No, Physician Primary Care Provider Unavailabl e Allergies No known active allergies Medications etonogestrel (NEXPLANON) 68 mg Impl subdermal implant by Subdermal route once. Active Active Problems No known active problems Social History Tobacco Use Types Packs/Day Years Used Date Smoking Tobacco: Never Smokeless Tobacco: Never Alcohol Use Standard Drinks/Week Comments Yes 0 (1 standard drink = 0.6 oz pur e alcohol) occ Comments Unknown Sex and Gender Information Value Date Recorded Sex Assigned at Not on file Legal Sex Female 6:25 PM EDT Gender Identity Not on file Sexual Orientation Not on file Last Filed Vital Signs Vital Sign Reading Time Taken Comments Blood Pressure 127/76 03/09/2017 6:37 PM EDT Pulse 61 03/09/2017 6:37 PM EDT Temperature 36.9 C (98.5 F) 03/09/2017 6:37 PM EDT Respiratory Rate 18 03/09/2017 6:37 PM EDT Oxygen Saturation 98% 03/09/2017 6:37 PM EDT Inhaled Oxygen Concentration - - Weight 65 kg (143 lb 3.2 oz) 03/09/2017 6:37 PM EDT Height 170.2 cm (5' 7 ) 03/09/2017 6:37 PM EDT Body Mass Index 22.43 03/09/2017 6:37 PM EDT Plan of Treatment Health Maintenance Due Date Last Done Comments Tetanus: Every 10yrs 1997 Wellness Visit 2000 Depression Screening/Follow- Up (PHQ-2/9) 2009 HIV Screening 2012 Hepatitis C Screening 2015 Pap Smear 2018 COVID-19 Vaccine (2023-2 5 season) 2024 Influenza Vaccine (#1) 2025 Pneumococcal Vaccine: Ped or At-Risk Aged Out No longer eligible b ased on patient's age to complete this topic Insurance [facility] Care Teams Seat Cover Cutter Relationship Specialty Start Date End Date No, Physician [facility] PCP - General 03/09/17
--- OUTSIDE RECORDS SUMMARY | 2025-03-03 20:24 | XMS_ITS | Encounter Summary ---
Author Organization [facility] Address [address] [place] [address] Care Team Providers Care Exhibit Display Representative Name Role Phone Duran Cleveland MD Primary Care Provider [phone] Encounter Details Date Type Department Care Team (Late st Contact Info) Description 05/29/2023 Clinisync Result Encounter [facility] External Department Unsolicited Karla Muhammad PA [address] [place] [address] [place] [address] Social History Tobacco Use Types Packs/Day [...] often do you attend chur ch or yazdanism services? Never 05/23/2023 Do you belong to [...] medical care, and heating? Somewhat hard 05/23/2023 [facility] of Occupat ional Health - Occupational [...] a jail (including now)? No 05/23/2023 Comments Yes Sex [...] suspected to have Coronavirus/COVID-19? No / Unsure 05/22/2023 1:04 AM EST documented as of this encounter Plan of Treatment Upcoming Encounters Date Type Department Care Team (Late st Contact Info) Description 03/08/2026 10:00 AM EDT Procedure Visit [facility] Isabel ALBARRANGYLee [address] [facility] [place] [address] Karla Muhammad PA [address] [facility] [place] [address] documented as of this encounter Procedures Procedure Name Priority Date/Time Associated Diagnosis Comments US OB ANATOMY 05/29/2023 3:36 PM EST documented in this encounter Results * US OB ANATOMY (05/29/2023 3:36 PM EST) Anatomical Region Laterality Modality Other 05/29/2023 3:36 PM EST Narrative 05/29/2023 3:36 PM EST The [address] [address] Ultrasound Report Signed Patient: MARIALUISA GOODE MR#: [id number] : 1995 Acct:[id number] Age/Sex: 28 / F ADM Date: 05/29/23 Loc: US Attending Dr: Karla Muhammad Ordering Physician: Karla Muhammad Date of Service: 05/29/23 Procedure(s): US OB anatomy Accession Number(s): [id number] cc: Karla Muhammad; Physician,Non-Staff M.DShorty [address] [address] Patient Name: MARIALUISA GOODE MRN: [id number] date: 1995 Sex: F Assigned Patient Location: US Current Patient Location: US Accession/Order Number: [id number] Exam Date: 05/29/2023 09:40 Report Date: 05/29/2023 15:36 At the request of: KARLA MUHAMMAD Procedure: US OB anatomy EXAMINATION: US OB anatomy, US OB transvaginal HISTORY: Second Trimester Z34.92 COMPARISON: Ultrasound OB transvaginal 02/22/2023 TECHNIQUE: Transabdominal sonographic examination was performed for obstetrical and evaluation. FINDINGS: Number: 1 Heart Rate: 139.9 bpm H.B. /min Amniotic Fluid Volume: Subjectively normal Placental Location: Posterior with lower margin 3.8 cm from os. Cervix Length: 4.1 cm; closed. ANATOMY: Normal Structures -cerebellum, choroid plexus, cisterna magna, lateral cerebral ventricles, orbits, midline falx, hard palate, four-chamber heart, RVOT, LVOT, stomach, kidneys, bladder, umbilical cord insertion into abdomen, three-vessel cord, cervical spine, thoracic spine, lumbar spine, sacral spine, right upper extremity, left upper extremity, right lower extremity, left lower extremity. SUBOPTIMALLY SEEN: None ABNORMALITIES: None BIOMETRY: BPD: 5.6 cm 23 weeks 1 days ; 39% HC: 21.1 cm 23 weeks 1 days; 31% AC: 17.8 cm 22 weeks 5 days; 23% FL: 3.9 cm 22 weeks 4 days ; 17% EFW:526.8 grams; 18% FL/AC: 21.9 FL/BPD: 69.6 HC/AC: 1.2 GESTATIONAL AGE: Age by EDC: 23 weeks 2 days MAGGI by EDC: 09/23/2023 Age by current US: 22 weeks 6 days MAGGI by current US: 09/26/2023 US/US OB anatomy IMPRESSION: 1. Single live intrauterine with growth detailed above. Electronically authenticated by: ENID HANKINS Date: 05/29/2023 15:36 Dictated By: Enid Hankins M.D. Signed By: 05/29/23 1538 DD/ 35 TD/TT: Animal Care Supervisor: Procedure Note Radiology, Radiologist, MD - 05/29/2023 [place] [address] Ultrasound Report Signed Patient: MARIALUISA GOODE OMR#: [id number] : 1995Acct:[id number] Age/Sex: 28 / FADM Date: 05/29/23 Loc: US Attending Dr: Karla Muhammad Ordering Physician: Karla Muhammad Date of Service: 05/29/23 Procedure(s): US OB anatomy Accession Number(s): [id number] cc: Karla Muhammad; Physician,Non-Staff MWilliam The [address] [address] Patient Name: MARIALUISA GOODE MRN: [id number] date: 1995 Sex: F Assigned Patient Location: US Current Patient Location: US Accession/Order Number: [id number] Exam Date: 05/29/2023 09:40 Report Date: 05/29/2023 15:36 At the request of: KARLA MUHAMMAD Procedure: US OB anatomy EXAMINATION: US OB anatomy, US OB transvaginal HISTORY: Second Trimester Z34.92 COMPARISON: Ultrasound OB transvaginal 02/22/2023 TECHNIQUE: Transabdominal sonographic examination was performed for obstetrical and evaluation. FINDINGS: Number: 1 Heart Rate: 139.9 bpm H.B. /min Amniotic Fluid Volume: Subjectively normal Placental Location: Posterior with lower margin 3.8 cm from os. Cervix Length: 4.1 cm; closed. ANATOMY: Normal Structures -cerebellum, choroid plexus, cisterna magna, lateral cerebral ventricles, orbits, midline falx, hard palate, four-chamberheart, RVOT, LVOT, stomach, kidneys, bladder, umbilical cord insertion intoabdomen, three-vessel cord, cervical spine, thoracic spine, lumbar spine, sacralspine, right upper extremity, left upper extremity, right lower extremity, leftlower extremity. SUBOPTIMALLY SEEN: None ABNORMALITIES: None BIOMETRY: BPD: 5.6 cm 23 weeks 1 days ; 39% HC: 21.1 cm 23 weeks 1 days; 31% AC: 17.8 cm 22 weeks 5 days; 23% FL: 3.9 cm 22 weeks 4 days ; 17% EFW:526.8 grams; 18% FL/AC: 21.9 FL/BPD: 69.6 HC/AC: 1.2 GESTATIONAL AGE: Age by EDC: 23 weeks 2 days MAGGI by EDC: 09/23/2023 Age by current US: 22 weeks 6 days MAGGI by current US: 09/26/2023 US/US OB anatomy IMPRESSION: 1. Single live intrauterine with growth detailed above. Electronically authenticated by: ENID HANKINS Date: 05/29/2023 15:36 Dictated By: Enid Hankins M.D. Signed By:05/29/238 DD/ 35 TD/TT: Animal Care Supervisor: us Karla THAPA [facility] Final Result documented in this encounter Visit Diagnoses Not on filedocumented in this encounter Care Teams Exhibit Display Representative Relationship Specialty Start Date End Date Duran Cleveland MD [address] [place] [address] PCP - General Family Medicine 01/29/23 documented as of this encounter
--- OUTSIDE RECORDS SUMMARY | 2025-03-03 20:24 | XMS_ITS | Encounter Summary ---
Author Organization [facility] Address [address] [place] [address] Care Team Providers Care Juice Bar Team Member Name Role Phone Duran Cleveland MD Primary Care Provider [phone] Encounter Details Date Type Department Care Team (Late st Contact Info) Description 10/22/2023 Abstract [facility] [address] [place] [address] Jose [place], [place] [address] [place] [address] Social History Tobacco Use Types Packs/Day Years [...] often do you attend chur ch or methodist services? Never 05/23/2023 Do you belong to any clubs o r organizations such as scientology groups, unions, fraternal or athletic groups, or [...] medical care, and heating? Somewhat hard 05/23/2023 [facility] of Occupat ional Health - Occupational Stress [...] EDT Procedure Visit [facility] Isabel URIBE [address] [place] [address] [address] PA [address] [facility] [place] [address] documented as of this encounter Visit Diagnoses Not on filedocumented in this encounter Care Teams Juice Bar Team Member Relationship Specialty Start Date End Date Duran Cleveland MD [address] [place] [address] PCP - General Family Medicine 01/29/23 documented as of this encounter
--- OUTSIDE RECORDS SUMMARY | 2025-03-03 20:24 | XMS_ITS | Encounter Summary ---
Author Organization [facility] Address [address] [place] [address] Care Team Providers Care Flyer Repairer Name Role Phone Duran Cleveland MD Primary Care Provider [phone] Encounter Details Date Type Department Care Team (Late Contact Info) Description 02/26/2023 Abstract NOMLeeanna URIBE [address] [facility] [place] [address] Ramakrishna Ayers DO [address] [facility] [address] Stephania Hall, [facility] Social History Tobacco Use Types Packs/Day Years Used Date Smoking Tobacco: Never Assessed Comments Yes Sex and Gender Information Value Date Recorded Sex Assigned at Not on file Legal Sex Female 7:27 PM EDT Gender Identity Female 09/20/2022 7:27 PM EDT Sexual Orientation Not on file COVID-19 Exposure Response Date Recorded In the last 10 days, have yo u been in contact with someone who was confirmed or suspected to have Coronavirus/COVID-19? No / Unsure 02/22/2023 10:25 AM EDT documented as of this encounter Plan of Treatment Upcoming Encounters Date Type Department Care Team (Late Contact Info) Description 03/08/2026 10:00 AM EDT Procedure Visit NOMLeeanna URIBE [address] [facility] [place] [address] PA [address] [facility] [address] [place], [facility] documented as of this encounter Visit Diagnoses Not on filedocumented in this encounter Care Teams Flyer Repairer Relationship Specialty Start Date End Date Duran Cleveland MD [address] [place] [address] PCP - General Family Medicine 01/29/23 documented as of this encounter
--- OUTSIDE RECORDS SUMMARY | 2025-03-03 20:25 | XMS_ITS | Encounter Summary ---
Author Organization [facility] Address [address] [place] [address] Care Team Providers Care Pocket Setter Lockstitch Name Role Phone Duran Cleveland MD Primary Care Provider [phone] Encounter Details Date Type Department Care Team (Late st Contact Info) Description 05/29/2023 Clinisync Result Encounter [facility] External Department Unsolicited Karla Muhammad PA [address] [place] [address] [place] [address] Social History Tobacco Use Types Packs/Day [...] often do you attend chur ch or jainism services? Never 05/23/2023 Do you belong to any clubs o r organizations such as jehovah's witness groups, unions, fraternal or athletic groups, or [...] medical care, and heating? Somewhat hard 05/23/2023 [facility] of Occupat ional Health - Occupational Stress [...] place to sleep or slept in a assisted (including now)? No 05/23/2023 Comments Yes Sex [...] EDT Procedure Visit [facility] Isabel ALBARRANGYLee [address] [address] Karla Muhammad PA [address] [facility] [address] [place], [place] [address] documented as of this encounter Procedures Procedure Name Priority Date/Time Associated Diagnosis Comments US OB TRANSVAGINAL 05/29/2023 3: 36 PM EST documented in this encounter Results * US OB TRANSVAGINAL (05/29/2023 3:36 PM EST) Anatomical Region Laterality Modality Other 05/29/2023 3:36 PM EST Narrative 05/29/2023 3:36 PM EST The [address] [address] Ultrasound Report Signed Patient: MARIALUISA GOODE MR#: [id number] : 1995 Acct:[id number] Age/Sex: 28 / F ADM Date: 05/29/23 Loc: US Attending Dr: Karla Muhammad Ordering Physician: Karla Muhammad Date of Service: 05/29/23 Procedure(s): US OB transvaginal Accession Number(s): [id number] cc: Karla Muhammad; Physician,Non-Staff M.DShorty [address] [address] Patient Name: MARIALUISA GOODE MRN: [id number] date: 1995 Sex: F Assigned Patient Location: US Current Patient Location: US Accession/Order Number: [id number] Exam Date: 05/29/2023 09:40 Report Date: 05/29/2023 15:36 At the request of: KARLA MUHAMMAD Procedure: US OB transvaginal EXAMINATION: US OB anatomy, US OB transvaginal [...] MAGGI by current US: 09/26/2023 US/US OB transvaginal IMPRESSION: 1. Single live intrauterine with growth detailed above. Electronically authenticated by: ENID HANKINS Date: 05/29/2023 15:36 Dictated By: Enid Hankins M.D. Signed By: 05/29/23 1538 DD/ 35 TD/TT: Cell Liner: Procedure Note Radiology, Radiologist, MD - 05/29/2023 The [place] [id number] Ultrasound Report Signed Patient: MARIALUISA GOODE OMR#: [id number] : 1995Acct:[id number] Age/Sex: 28 / FADM Date: 05/29/23 Loc: US Attending Dr: Karla Muhammad Ordering Physician: Karla Muhammad Date of Service: 05/29/23 Procedure(s): US OB transvaginal Accession Number(s): [id number] cc: Karla Muhammad; Physician,Non-Staff Irene The [address] [address] Patient Name: MARIALUISA GOODE MRN: [id number] date: 1995 Sex: F Assigned Patient Location: US Current Patient Location: US Accession/Order Number: [id number] Exam Date: 05/29/2023 09:40 Report Date: 05/29/2023 15:36 At the request of: KARLA MUHAMMAD Procedure: US OB transvaginal EXAMINATION: US OB anatomy, US OB transvaginal [...] MAGGI by current US: 09/26/2023 US/US OB transvaginal IMPRESSION: 1. Single live intrauterine with growth detailed above. Electronically authenticated by: ENID HANKINS Date: 05/29/2023 15:36 Dictated By: Enid Hankins M.D. Signed By:05/29/231537 DD/ 35 TD/TT: Cell Liner: us Karla THAPA [facility] Final Result documented in this encounter Visit Diagnoses Not on filedocumented in this encounter Care Teams Pocket Setter Lockstitch Relationship Specialty Start Date End Date Duran Cleveland MD [address] [place] [address] PCP - General Family Medicine 01/29/23 documented as of this encounter
--- OUTSIDE RECORDS SUMMARY | 2025-03-03 20:25 | XMS_ITS | Clinical Summary ---
Author Organization [facility] Address [address] [place] [address] Care Team Providers Care Third Mate Name Role Phone Duran Cleveland MD Primary Care Provider [phone] Allergies Active Allergy Reactions Criticality Noted Date Comments Octacosanol 03/21/2023 Medications levonorgestrel-et hinyl estradiol (Jolessa) 0.15-0.03 MG tabletIndications :Encounter for initial prescription of contraceptives, unspecified contraceptive Take 1 tablet by mouth Daily Take 1 tablet by mouth daily 84 tablet 3 02/18/20 25 025 Active MV-Min-Fe Fum-FA-DHA ( 1 PO) Take by mouth. 025 Discontinued Active Problems No known active problems Encounters Date Type Department Care Team Description 03/03/2025 1:30 PM EDT [facility] [place] [address] PA Well woman exam with routine gynecological exam 03/03/2025 Bamboo [place] [address] PA 02/17/2025 11:40 AM EDT [place] [address] PA Encounter for initial prescription of contraceptives, unspecified contraceptive 02/17/2025 Bamboo flowsheet [facility] [address] [place] [address] PA from Last 3 Months Family History Medical History Relation Name Comments Cancer Maternal Grandmother Niki Nephrolithiasis Mother Relation Name Status Comments Brother 2 Father Alive Maternal Grandmother Niki Mother Alive Sister 1 Social History Tobacco Use Types Packs/Day Years Used Date Smoking Tobacco: Never Smokeless Tobacco: Never Tobacco Cessation:Counseling Given: Not Answered Alcohol Use Standard Drinks/Week Comments Not Currently [...] any clubs o r organizations such as yarsanism groups, unions, fraternal or athletic groups, or [...] you are drinking? Patient does not drink 3 Q3: How often do you have si x or more drinks on one occasion? Never 05/23/2023 Overall Financial Resource Strain (CARDIA) Answe r Date Recorded How hard is it for you to pa y for the very basics like food, housing, medical care, and heating? Somewhat hard 05/23/2023 [facility] - Occupational [...] place to sleep or slept in a senior care (including now)? No 05/23/2023 Comments Unknown Sex and Gender Information Value Date Recorded Sex Assigned at Not on file Legal Sex Female 7:27 PM EDT Gender Identity Female 09/20/2022 7:27 PM EDT Sexual Orientation Not on file Last Filed Vital Signs Vital Sign Reading Time Taken Comments Blood Pressure 110/74 03/03/2025 1:52 PM EDT Pulse 66 05/23/2023 2:34 PM EST Temperature 36.6 C (97.9 F) 05/23/2023 2:34 PM EST Respiratory Rate - - Oxygen Saturation 99% 05/23/2023 2:34 PM EST Inhaled Oxygen Concentration - - Weight 65.2 kg (143 lb 12.8 oz) 03/03/2025 1:52 PM EDT Height 167 cm (5' 5.75 ) 01/07/2021 12: 00 PM EDT Body Mass Index 23.39 01/07/2021 12:00 PM EDT Plan of Treatment Upcoming Encounters Date Type Department Care Team (Late st Contact Info) Description 03/08/2026 10:00 AM EDT Procedure Visit [facility] [address] [place] [address] PA [address] [place] [address] Health Maintenance Due Date Last Done Comments Influenza Vaccine (#1) 2025 09/10/2019, 2017 Procedures Procedure Name Priority Date/Time Associated Diagnosis Comments POCT , URINE Routine 02/17/2025 12:14 PM EDT Encounter for initial prescription of contraceptives, unspecified contraceptive from Last 3 Months Results * POCT , urine manually resulted (02/17/2025 12:14 PM EDT) Preg Test, Ur Negative Negative Urine 02/17/2025 12:1 4 PM EDT Karla THAPA POINT OF CARE TEST ENTER/EDIT OR DERABLES Final Result from Last 3 Months Insurance [employer] [place] Care Teams Third Mate Relationship Specialty Start Date End Date Duran Cleveland MD [address] [place] [address] PCP - General Family Medicine 01/29/23
--- OUTSIDE RECORDS SUMMARY | 2025-03-03 20:25 | XMS_ITS | CCD ---
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 Name Role Phone NO, PHYSICIAN Unavailable Unavailable DEIRDRE ALEMAN Unavailable Unavailable SAIMA, MAXIM Unavailable Unavailable SAIMA, MAXIM Unavailable Unavailable LINUSJOSEKASSANDRABROCK Unavailable Unavailable SAIMA, MAXIM Unavailable Unavailable Unavailable Primary Care Provider UnavailDuran Saucedo Primary Care Physician Ramakrishna AYERS Attending Unavailable Ramakrishna AYERS Admitting Unavailable Duran [place] MD Primary Care Provider KARLA MUHAMMAD Attending Unavailable Allergies Allergy Classification Reported Allergen(s) Allergy Type Date of Onset Reaction(s) Facility (7 sources) Octacosanol Propensity to adverse reactions 3 [facility] Work Phone: Medications Current Medications Medication Drug Class(es) Dates Sig (Normalized) Sig (Original) acetaminophen 325 mg / HYDROcodone bitartrate 5 mg oral tablet (1 source) Opioid Agonist Start: 08-11-2020 Artesian 325 mg-5 mg oral tablet 1 tab(s), [...] day. 2 tablet 0 03/09/2017 03/10/2017 Active Ethinyl Estradiol / Levonorgestrel (4 sources) Progestin, Estrogen, Progestin-containin g Intrauterine Device Start: 02-17-2025 End: 05-12-2025 take 1 tablet by mouth once daily, then take 1 tablet by mouth once daily levonorgestrel-eth inyl estradiol (Jolessa) 0.15-0.03 MG tablet Indications: Encounter for initial prescription of contraceptives, unspecified contraceptive Take 1 tablet by mouth Daily Take 1 tablet by mouth daily 84 tablet 3 02/17/2025 05/12/2025 Active etonogestrel 68 mg drug implant (1 [...] Status: Ordered MV-Min-Fe Fum-FA-DHA ( 1 PO) (5 sources) End: 02-17-2025 MV-Min-Fe Fum-FA-DHA ( 1 PO) Take by mouth. 02/17/2025 Discontinued MV-Min- Fe Fum-FA-DHA ( 1 PO) Take by mouth. Active MV-Min- Fe Fum-FA-DHA ( 1 PO) Take [...] Classification Problem Date Documented Da te Episodic/Chronic Contraceptive and procreative management (2 sources) Patient encounter status; Translations: [Encounter for initial prescription of contraceptives, unspecified] 02-17-2025 Episodic Other and delivery including normal (2 sources) [...] Test Name Value Interpretation Reference Range Facility HCG ( test) Ql (U)o n 02-17-2025 Interpretation and review of laboratory results Normal [facility] Preg Test, Ur Negative Negative [facility] Urinalysis macro (dipstick) panel (U)on 08-20-2023 Bilirubin, UA Negative Negative - 4(70) +++ mg/dL [facility] Blood, UA Negative Negative - 50 Maxime/mcL [facility] Clarity, UA Clear [facility] Color, UA Yellow [facility] Glucose, UA Negative Negative - 1999(110) ++++ mg/dL [facility] Interpretation and review of laboratory results Abnormal [facility] Ketones, UA Negative Negative - 160(16) ++++ mg/dL [facility] Leukocytes, UA Trace Negative - 500+++ Cassidy/mcL [facility] Nitrite, UA Negative Negative - Positive [facility] pH, UA 6.5 5 - 9 [facility] Protein, UA Negative Negative - 2000(20) ++++ mg/dL [facility] Spec Grav, UA 1.020 1 - 1.03 [facility] Urobilinogen, UA 0.2 0.2 - 12 mg/dL [facility] Cytology Cervical or vaginal smear or scraping studyOrdered By: Shivani Garcia on 03-21-2023 [facility] .Interpretation:on HCV Ab IA Ql Comment Invalid Interpretation Code [facility] Comment on above: Result Comment: Not infected with HCV unless early or acute infection is suspected (which may be delayed in an immunocompromised individual), or other evidence exists to indicate HCV infection. Performed at: [facility] [address] [place], [place] [id number] PhD Ross Wise Performed By: #### 7 [id number], [id number], 78874653, 5439961, 0882271975, 511572684, 4874307415, 2837581, 702415073, 4096289 #### [facility] [address] [place] [address] C Urineon 03-01-2023 Bacteria identified Cx Nom (U) Microbiology PROCEDURE: Urine Culture [R1] SOURCE: U CleanCatch BODY SITE: COLLECTED DATE/TIME: 02/27/2023 16:35 EDT RECEIVED DATE/TIME: 02/27/2023 18:14 EDT START DATE/TIME: 02/27/2023 18:14 EDT FREE TEXT SOURCE: Ramakrishna AYERS DO, DO, Corey R FINAL REPORTS Final Report [] Verified Date/Time: 03/01/2023 07:16 EDT 3,000 cfu/ml Mixed skin contaminants Performing Locations R1: This test was performed at: [facility], [address] [place] [address], [phone] [phone] , Normal [facility] Comment on above: Performed By: #### 2 [id number] ####[facility] [address] [place] [address] HCV Antibody RFX to Quant PC Peterson 03-01-2023 HCV IgG IA Ql Non-Reactive Invalid Interpretation Code Non Reactive [facility] Comment on above: Result Comment: Perf ormed at: [facility] [address] [place], [place] [id number] PhD Ross Wise Performed By: #### 7 [id number], 36380996, 21446986, 8403911, 0118517835, 304255415, 5273336175, 9010887, 515908165, 1167944 #### [facility] [address] [place] [address] HIV Screen 4th Generation wR fxon 03-01-2023 HIV 1+2 Ab+HIV1 p24 Ag IA Ql Non-Reactive Invalid Interpretation Code Non Reactive [facility] Comment on above: Result Comment: HIV Negative HIV-1/HIV-2 antibodies and HIV-1 p24 antigen were NOT detected. There is no laboratory evidence of HIV infection. Performed at: [address] [id number] PhD Ross Wise Performed By: #### 7 [id number], 91717196, 10064870, 5351876, 0258403868, 533552835, 8737240491, 7905146, 338133028, 7120488 #### [facility] [address] [place] [address] Hep Bs Agon 03-01-2023 HBV surface Ag IA Ql Negative Invalid Interpretation Code Negative [facility] Comment on above: Result Comment: Perf ormed at: [address] [id number] PhD Ross Wise Performed By: #### 7 91761090, 99611875, 14087372, 0409679, 5430583621, 308225203, 0182884365, 3947032, 035484486, 4962903 ####[facility] [address] [place] [address] RPR with Conf Rfxon 03-01-20 23 Reagin Ab RPR Ql (S) Non-Reactive Invalid Interpretation Code Non Reactive [facility] Comment on above: Result Comment: Perf ormed at: [address] [id number] PhD Ross Wise Performed By: #### 7 88145829, 81159389, 14693260, 7851041, 1872681843, 210566168, 6002561582, 4520956, 176794922, 2641782 #### [facility] [address] [place] [address] Rubella IgGon 03-01-2023 Rubella virus IgG Qn (S) 11.40 [IU]/mL Invalid Interpretation Code Immune >0.99 [facility] Comment on above: Result Comment: Non- immune <0.90 Equivocal 0.90 - 0.99 Immune >0.99 Performed at: [address] [id number] PhD Ross Wise Performed By: #### 7 03837482, 32740925, 44106436, 7576622, 5850753446, 005599823, 1703914002, 4727711, 249117650, 6793487 ####[facility] [address] [place] [address] Rubella IgMon 03-01-2023 Rubella virus IgM IA Qn (S) <20.0 Invalid Interpretation Code 0.0-19.9 [facility] Comment on above: Result Comment: Nega tive <20.0 Equivocal 20.0 - 24.9 Positive >24.9 Performed at: [address] [id number] PhD Ross Wise Performed By: #### 7 91445030, 57887078, 28200139, 6554320, 1169538773, 636011288, 4078518124, 4207313, 650580118, 1568066 #### [facility] [address] [place] [address] ABO/Rhon 02-27-2023 ABO/Rh Positive Invalid Interpretation Code [facility] Comment on above: Performed By: #### 1 7558067, 3737335 ####[facility] [address] [place] [address] ABSCon 02-27-2023 ABSC Gel Interp Negative Normal [facility] Comment on above: Performed By: #### 1 1649152, 3701442 ####[facility] [address] [place] [address] BLOOD BANKOrdered By: Maxim Price on 02-27-2023 ABO/Rh Interp Positive Invalid Interpretation Code [facility] [place] Subsection ABSC Gel Interp Negative (02/27/23 4:43 PM) Normal [facility] BB Subsection CBC w/Indiceson 02-27-2023 Erythrocyte distribution width (RBC) [Ratio] 12.8 % Normal 10.9-14.2 [facility] Comment on above: Performed By: #### 7 58218943, 45960245, 72743828, 5265057, 5643069572, 464630819, 8633973237, 3753864, 485006016, 6605432 #### [facility] [address] [place] [address] Hematocrit (Bld) [Volume fraction] 40.7 % Normal 34.0-46.0 [facility] Comment on above: Performed By: #### 7 68569459, 08887816, 10025801, 1120074, 7776139420, 897424512, 0171667560, 6102897, 437984471, 3199588 #### [facility] [address] [place] [address] Hemoglobin (Bld) [Mass/Vol] 14.0 g/dL Normal 12.0-16.0 [facility] Comment on above: Performed By: #### 7 19043124, 87102769, 32656043, 8395122, 2980012181, 382771004, 2954421900, 0350820, 952376681, 0335703 #### [facility] [address] [place] [address] MCH (RBC) [Entitic mass] 31.1 pg Normal 27.0-34.0 [facility] Comment on above: Performed By: #### 7 49886649, 48075502, 27312237, 8525435, 8155490871, 276498214, 9833421544, 4877335, 804879602, 9890086 #### [facility] [address] [place] [address] MCHC (RBC) [Mass/Vol] 34.4 g/dL Normal 31.4-36.0 [facility] Comment on above: Performed By: #### 7 33826458, 91697223, 19127372, 9897861, 2396663081, 197749439, 1862463623, 8899683, 211433634, 4415113 #### [facility] [address] [place] [address] MCV (RBC) [Entitic vol] 90.4 fL Normal 80.0-100.0 [facility] Comment on above: Performed By: #### 7 49248598, 58884950, 73889122, 8961297, 2997021662, 478317847, 2301626480, 0961073, 652773794, 9244157 #### [facility] [address] [place] [address] Platelet mean volume (Bld) [Entitic vol] 7.9 fL Normal 6.4-10.8 [facility] Comment on above: Performed By: #### 7 57909630, 95338790, 95684906, 3773518, 9317655592, 319178368, 4412086376, 3011385, 128007719, 5707250 #### [facility] [address] [place] [address] Platelets (Bld) [#/Vol] 312.0 E9/L Normal 150.0-500.0 [facility] Comment on above: Performed By: #### 7 87423229, 94537196, 70949670, 2857304, 6732822495, 330774735, 8549153590, 9960349, 629911802, 5348091 #### [facility] [address] [place] [address] RBC (Bld) [#/Vol] 4.5 E12/L Normal 4.3-5.9 [facility] Comment on above: Performed By: #### 7 53838039, 38037436, 90848438, 1341206, 1069504670, 921074043, 8600009234, 1241270, 994089783, 3583622 #### [facility] [address] [place] [address] WBC corrected for nucl RBC Auto (Bld) [#/Vol] 9.9 E9/L Normal 4.0-11.0 [facility] Comment on above: Performed By: #### 7 92768933, 68918041, 58515769, 6396974, 2583222329, 743472266, 7544241339, 1495373, 848987340, 7412995 #### [facility] [address] [place] [address] CHEMISTRYOrdered By: Cheko Segal on 02-27-2023 HbA1c (Bld) [Mass fraction] 5.0 % Normal <=5.9% [facility] ChemAutoSS CHEMISTRYOrdered By: SYSTEM SYSTEM on 02-27-2023 TSH Qn 2.85 m[IU]/L Normal 0.34 - 5.60 mcIU/mL [facility] Remisol Consent for Treatmenton 02-07 Consent for Treatment [id number] .00CD:127 Normal [facility] HEMATOLOGYOrdered By: Maxim Price on 02-27-2023 [...] 90.4 fL Normal 80.0 - 100.0 fL [facility] HemeAutoSS Platelet mean volume (Bld) [Entitic vol] 7.9 fL Normal 6.4 - 10.8 fL [facility] HemeAutoSS Platelets (Bld) [#/Vol] 312.0 E9/L Normal 150.0 - 500.0 E9/L [facility] HemeAutoSS RBC (Bld) [#/Vol] 4.5 E12/L Normal 4.3 - 5.9 E12/L [facility] HemeAutoSS WBC corrected for nucl RBC Auto (Bld) [#/Vol] 9.9 E9/L Normal 4.0 - 11.0 E9/L [facility] HemeAutoSS AezP9gdt 02-27-2023 HbA1c (Bld) [Mass fraction] 5.0 % Normal <=5.9 [facility] Comment on above: Performed By: #### 7 62980698, 14408884, 55944447, 7473157, 6427902072, 359747665, 7418080938, 0537754, 478761262, 1601445 #### [facility] [address] [place] [address] Physician Orderon 02-27-2023 Physician Order [id number] .00CD:127 Normal [facility] TSHon 02-27-2023 TSH Qn 2.85 m[IU]/L Normal 0.34-5.60 [facility] Comment on above: Performed By: #### 7 91515970, 28958970, 07540638, 5189188, 9904467379, 568916951, 3402395723, 1588806, 098990618, 4210716 #### [facility] [address] [place] [address] XR Ankle 3+ Views LTon 01-16 XR [...] acute osseous findings.2. Mild anterolateral soft tissue swelling.[place] thanks you for the opportunity to care for your patient. Workstation ID: [id number] FINAL REPORT Dictated By: Galo Whitehead MD 01/16/2018 15:17Assigned Physician: Galo Whitehead MD and Electronically Signed By: Galo Whitehead MD 01/16/2018 15:17Transcribed by: AYLIN 01/16/2018 15:17Technologist: MLR Normal [facility] CBC with Differentialon 03-0 Basophils Auto #/vol (Bld) 0.10 thou/mcL Normal 0.00-0.20 [facility] Comment on above: Performed By: #### 6 9742-5 ####[address] Basophils/100 WBC Auto (Bld) 0.8 % Normal 0.0-2.0 [facility] Comment on above: Performed By: #### 6 9742-5 ####[address] Eosinophils 0.10 thou/mcL Normal 0.00-0.70 [facility] Comment on above: Performed By: #### 6 9742-5 ####[address] Eosinophils/100 leukocytes 1.1 % Normal 0.0-7.0 [facility] Comment on above: Performed By: #### 6 9742-5 ####[address] Erythrocyte distribution width Entitic volume (RBC) 13.2 % Normal 11.0-14.8 [facility] Comment on above: Performed By: #### 6 9742-5 ####[address] Erythrocytes (RBC) 4.66 million/mcL Normal 3.80-5.10 [facility] Comment on above: Performed By: #### 6 9742-5 ####[facility] [address] [place], [place] Hematocrit (HCT) 41.6 % Normal 35.0-45.[address] [facility] Comment on above: Performed By: #### 6 9742-5 ####[facility] [address] [place], [place] Hemoglobin mass conc (Bld) 14.5 g/dL Normal 12.0-16.0 [facility] Comment on above: Performed By: #### 6 9742-5 ####[facility] [address] [place], [place] Lymphocytes 1.70 thou/mcL Normal 1.00-4.80 [facility] Comment on above: Performed By: #### 6 9742-5 ####[facility] [address] [place], [place] Lymphocytes/100 leukocytes 21.3 % Low 25.0-45.0 [facility] Comment on above: Performed By: #### 6 9742-5 ####[facility] [address] [place], [place] MCH 31.2 Picograms Normal 27.0-34.0 [facility] Comment on above: Performed By: #### 6 9742-5 ####[facility] [address] [place], [place] MCHC mass conc (RBC) 35.0 g/dL Normal 32.0-36.0 [facility] Comment on above: Performed By: #### 6 9742-5 ####[facility] [address] [place], [place] MCV 89.3 fL Normal 80.0-97.0 [facility] Comment on above: Performed By: #### 6 9742-5 ####[facility] [address] [place], [place] Monocytes 0.50 thou/mcL Normal 0.00-0.90 [facility] Comment on above: Performed By: #### 6 9742-5 ####[facility] [address] [place], [place] Monocytes/100 leukocytes 6.7 % Normal 2.0-8.0 [facility] Comment on above: Performed By: #### 6 9742-5 ####[facility] [address] [place], [place] Neutrophils 5.50 thou/mcL Normal 1.80-7.70 [facility] Comment on above: Performed By: #### 6 9742-5 ####[facility] [address], [place] Neutrophils/100 WBC Auto (Bld) 70.1 % Normal 39.0-75.0 [facility] Comment on above: Performed By: #### 6 9742-5 ####[place] [address] [address], [place] Platelet mean volume Entitic volume (Bld) 8.1 FL Normal 6.2-12.1 [facility] Comment on above: Performed By: #### 6 9742-5 ####[facility] [address] [address], [place] Platelets 314 thou/mcL Normal 142-424 [facility] Comment on above: Performed By: #### 6 9742-5 ####[facility] [address], [place] WBC (Leukocytes) 7.8 thou/mcL Normal 4.5-13.5 [facility] Comment on above: Performed By: #### 6 9742-5 ####[facility] [address], [place] Comprehensive Metabolic Pane nilesh 09-12-2017 Alanine aminotransferase (ALT) 14 Units/L Normal 14-63 [facility] Comment on above: Performed By: #### 6 9405-9, 48509-9, 3040-3, 41787-7 ####[facility] [address], [place] Albumin 4.3 g/dL Normal 3.5-4.8 [facility] Comment on above: Performed By: #### 6 9405-9, 39014-1, 3040-3, 56331-3 ####[facility] [address], [place] Alkaline phosphatase (ALP) 78 Units/L Normal 32-91 [facility] Comment on above: Performed By: #### 6 9405-9, 00155-1, 3040-3, 97923-7 ####[facility] [address], [place] Anion gap 9.0 mmol/L Normal 6.0-18.0 [facility] Comment on above: Result Comment: PLEA SE NOTE:The calculated Anion Gap(AGAP) does not include Potassium. Performed By: #### 6 9405-9, 76272-8, 3040-3, 91230-4 ####[facility] [address], [place] Aspartate aminotransferase (AST) 17 Units/L Normal 15-41 [facility] Comment on above: Performed By: #### 6 9405-9, 56779-7, 3040-3, 14723-2 ####[facility] [address], [place] Bilirubin (total) 0.7 mg/dL Normal 0.3-1.2 [facility] Comment on above: Performed By: #### 6 9405-9, 05087-9, 3040-3, 77014-1 ####[facility] [address], [place] Calcium 9.8 mg/dL Normal 8.9-10.3 [facility] Comment on above: Performed By: #### 6 9405-9, 85704-5, 3040-3, 02616-7 ####[facility] [address], [place] Chloride 103 mmol/L Normal 98-107 [facility] Comment on above: Performed By: #### 6 9405-9, 30137-9, 3040-3, 92076-0 ####[facility] [address], [place] CO2 29 mmol/L Normal 22-32 [facility] Comment on above: Performed By: #### 6 9405-9, 79024-9, 3040-3, 86955-5 ####[facility] [address], [place] Creatinine 0.87 mg/dL Normal 0.60-1.30 [facility] Comment on above: Performed By: #### 6 9405-9, 86172-1, 3040-3, 30291-1 ####[facility] [address], [place] Glucose mass conc 89 mg/dL Normal 70-110 [facility] Comment on above: Performed By: #### 6 9405-9, 38982-7, 3040-3, 89936-3 ####[facility] [address] Potassium molar conc 5.4 mmol/L High 3.6-5.1 [facility] Comment on above: Performed By: #### 6 9405-9, 39054-0, 3040-3, 15403-8 ####[facility] [address], [place] Protein 6.7 g/dL Normal 6.1-7.9 [facility] Comment on above: Performed By: #### 6 9405-9, 28268-0, 3040-3, 27661-9 ####[facility] [address], [place] Sodium 141 mmol/L Normal 136-145 [facility] Comment on above: Performed By: #### 6 9405-9, 61153-0, 3040-3, 26497-2 ####[facility] [address] Urea nitrogen mass conc (BldV) 10 mg/dL Normal 8-20 [facility] Comment on above: Performed By: #### 6 9405-9, 00002-5, 3040-3, 46727-2 ####[facility] [address], [place] GFRaaon 09-12-2017 eGFR (black) mL/min/{1.73_m2} Normal [facility] Comment on above: Result Comment: The MDRD equation has not been validated for those over 70 years, women, patients with serious co-morbid conditions, or with extremes of bodysize, muscle mass of nutritional status. Performed By: #### 6 9405-9, 18993-7, 3040-3, 22161-0 ####[facility] [address], [place] GFRbbon 09-12-2017 eGFR (non-black) mL/min/{1.73_m2} Normal [facility] Comment on above: Performed By: #### 6 9405-9, 02451-7, 3040-3, 74669-6 ####[facility] [address] [place], [place] Lipaseon 09-12-2017 Lipase 16 Units/L Low 22-51 [facility] Comment on above: Performed By: #### 6 9405-9, 62511-3, 3040-3, 96645-7 ####[facility] [address], [place] Vital Signs Date Time Vital Sign Value Performing Clinician Facility 03-03-2025 13:52-0400 Body mass index (BMI) [Ratio] 23.39 kg/m2 Karla Wytheville PA Work Phone: [facility] 03-03-2025 13:52-0400 Body weight 65.23 kg Karla Wytheville PA Work Phone: [facility] 03-03-2025 13:52-0400 Diastolic blood pressure 74 mm[Hg] Karla [place] PA Work Phone: [facility] 03-03-2025 13:52-0400 Systolic blood pressure 110 mm[Hg] Karla Jad PA Work Phone: [facility] 02-17-2025 12:06-0400 Body mass index (BMI) [Ratio] 23.44 kg/m2 Karla Jad PA Work Phone: [facility] 02-17-2025 12:06-0400 Body weight 65.37 kg Karla [place] PA Work Phone: [facility] 02-17-2025 12:06-0400 Diastolic blood pressure 80 mm[Hg] Karla Jad PA Work Phone: [facility] 02-17-2025 12:06-0400 Systolic blood pressure 124 mm[Hg] Karla Jad PA Work Phone: [facility] 08-20-2023 10:00-0500 Body mass index (BMI) [Ratio] 27 kg/m2 Karla Muhammad PA Work Phone: [facility] 08-20-2023 10:00-0500 Body weight 75.3 kg Karla Muhammad PA Work Phone: [facility] 08-20-2023 10:00-0500 Diastolic blood pressure 62 mm[Hg] Karla Muhammad PA Work Phone: [facility] 08-20-2023 10:00-0500 Systolic blood pressure 110 mm[Hg] Karla Muhammad PA Work Phone: [facility] 03-09-2017 18:37-0400 BMI (Body Mass Index) 22.43 kg/m2 Deirdre Aleman [facility] Work Phone: 03-09-2017 18:37-0400 Body Temperature 98.49 [degF] [facility] Work Phone: 03-09-2017 18:37-0400 BP Diastolic 76 mm[Hg] [facility] Work Phone: 03-09-2017 18:37-0400 BP Systolic 127 mm[Hg] Deirdre Aleman [facility] Work Phone: 03-09-2017 18:37-0400 Height 170.2 cm Deirdre Aleman [facility] Work Phone: 03-09-2017 18:37-0400 Pulse (Heart Rate) 61 /min Deirdre [facility] Work Phone: 03-09-2017 18:37-0400 Pulse Oximetry 98 % Deirdre Aleman [facility] Work Phone: 03-09-2017 18:37-0400 Respiratory Rate 18 /min Deirdre [facility] Work Phone: 03-09-2017 18:37-0400 Weight 64.95 kg Deirdre Aleman [facility] Work Phone: Encounters Encounter Date Encounter Type Care Provider Facility Start: 03-03-2025 End: 03-03-2025 Bamboo flowsheet Karla THAPA Work Phone: [facility] Start: 03-03-2025 End: 03-03-2025 Bamboo flowsheet Karla THAPA Work Phone: [facility] Start: 03-03-2025 End: 03-03-2025 Patient encounter procedure Karla THAPA Work Phone: [facility] Work Phone: Start: 03-03-2025 End: 03-03-2025 Periodic preventive med est patient 18-39 yrs Karla THAPA Work Phone: [facility] Comment on above: Well woman exam with routine gynecological exam Start: 02-17-2025 End: 02-17-2025 Bamboo flowsheet Karla THAPA Work Phone: [facility] Start: 02-17-2025 End: 02-17-2025 Bamboo flowsheet Karla THAPA Work Phone: [facility] [place] [facility] Start: 02-17-2025 End: 02-17-2025 ambulatory KARLA MUHAMMAD Not Available Start: 02-17-2025 End: 02-17-2025 Office outpatient visit 15 minutes Karla THAPA Work Phone: [facility] Comment on above: Encounter for initia l prescription of contraceptives, unspecified contraceptive Start: 08-20-2023 End: 08-20-2023 Office outpatient visit 15 minutes Karla THAPA Work Phone: [facility] Comment on above: Third trimester preg garry Start: 02-27-2023 End: 02-28-2023 ambulatory Ramakrishna R [place]RI[place] [place]: 02-27-2023 End: 02-27-2023 Patient encounter procedure Ramakrishna AYERS [facility] Start: 01-17-2018 End: 01-17-2018 Patient encounter BROCK ARAYALee Facility:[facility] Start: 09-13-2017 End: 09-13-2017 Patient encounter MAXIM LANDAVERDE Facility:[facility] Start: 03-09-2017 End: 03-09-2017 Ambulatory PHYSICIAN NO [facility] Start: 03-09-2017 End: 03-09-2017 Office outpatient new 30 minutes Deirdre Aleman Work Phone: [facility] Beatris Koenig Comment on above: STD exposure (Primar y Dx) Procedures Date Procedure Procedure Detail Performing Clinician Start: 02-17-2025 Urine test visual color cmprsn meths Karla THAPA Work Phone: Start: 08-20-2023 Urnls dip stick/tabl et rgnt non-auto w/o micrscp Karla THAPA Work Phone: Start: 03-21-2023 Cytp cerv/vag auto t hin layer prep mnl screen Ramakrishna Andria DO Work Phone: None (qualifier value) Ramakrishna ANDRIA Plan of Treatment Date Care Activity Detail Author Start: 03-08-2026 End: 03-08-2026 Patient encounter procedure 03/08/2026 10:00 AM EDT Procedure Visit [facility] [address] [place] [address] Karla Muhammad PA [address] [place], [place] [address] [facility] Start: 03-09-2025 Influenza vaccination Influ[facility] Vacc ine [facility] Start: 03-03-2025 End: 03-03-2025 Patient encounter procedure 03/03/2025 1:30 PM EDT Procedure Visit [facility] [address] [address] Karla Muhammad PA [address] [place] [address] [facility] Start: 01-06-2024 Influenza vaccination Influenza Vacc ine (#1) [facility] Comment on above: Postponed from 03/09 (Patient Refused) Start: 08-27-2023 End: 08-27-2023 Patient encounter procedure 08/27/2023 8:40 AM EST Routine [facility] [address] [place] [id number] Ramakrishna Ayers DO [address] [place], [place] [id number] [facility] Start: 03-09-2017 SEQUENTIAL INFLUENZA VACCINE (#1) SEQUENTIAL INFLUENZA VACCINE (#1) [facility] Work Phone: Start: 2008 HPV VACCINES (1 of 3 - Female 3 Dose Series) HPV VACCINES (1 of 3 - Female 3 Dose Series) [facility] Work Phone: Start: 1997 TETANUS EVERY 10 YR TETANUS EVERY 10 YR [facility] Work Phone: Chlamydia/GC/Trichom on as Amplified RNA Chlamydia/GC/Trichomonas Amplified RNA Routine STD exposure Ordered: 03/09/2017 [facility] Work Phone: Comment on above: Ordered: 03/09/2017 Chlamydia/Gonorrhoea e Amplified RNA Chlamydia/Gonorrhoeae Amplified RNA Routine STD exposure Ordered: 03/09/2017 [facility] Work Phone: Comment on above: Ordered: 03/09/2017 Cytology Cervical or vaginal smear or scraping study Pap Smear Pathology and Cytology Routine Well woman exam with routine gynecological exam Ordered: 03/03/2025 [facility] Work Phone: Comment on above: Ordered: 03/03/2025 Trichomonas vaginali s Amplified RNA Trichomonas vaginalis Amplified RNA Routine STD exposure Ordered: 03/09/2017 [facility] Work Phone: Comment on above: Ordered: 03/09/2017 Immunizations Immunization Date Immunization Notes Care Provider Calvin angel 08-11-2020 tetanus toxoid, redu chris diphtheria toxoid, and acellular pertussis vaccine, adsorbed Ramakrishna AYERS [facility] 09-10-2019 influenza virus vaccine, unspecified formulation Karla THAPA Work Phone: [facility] Payers Date Payer Category Payer Medicaid [id number] 2023 Medicaid [id number] 2023 Unknown 2015 Unknown [id number] 1997 Unknown [id number] 1997 Unknown [id number] Social History Date Type Detail Facility Start: 03-09-2017 End: 03-10-2023 Tobacco smoking status [facility] Never smoker [facility] Start: 1995 Sex Assigned At Not on file [facility] Work Phone: Tobacco smoking status No Smokin g Status Entered [facility] Start: 05-23-2023 End: 02-17-2025 Sex Assigned At Female [facility] Start: 03-10-2023 Tobacco use and exposure Smokeless tobacco non-user [facility] Start: 08-20-2023 End: 03-03-2025 Alcohol intake Ex-drinker (finding) [facility] Start: 05-23-2023 End: 02-17-2025 History of Social function [facility] Within [...] [facility] History of Present illness Narrative 03-03-2025 ALANIS Zavala - 03/03/2025 1:30 PM EDT Note Date & Type Note Facility 03-03-2025 History of Presen t illness Narrative Reason for Appointment: Patient ID: Marialuisa Goode is a 29 y.o. female who presents for Well Women Visit Patient presents today for Annual Exam. MEDICATIONS Current Outpatient Medications Medication Instructions levonorgestrel-ethinyl estradiol (Jolessa) 0.15-0.03 MG tablet 1 tablet, Oral, Daily, Take 1 tablet by mouth daily ALLERGIES Allergies Allergen Reactions Seasonal [...] nursing note reviewed. 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 Vitals: Estimated body mass index is 23.39 kg/m as calculated from the following: Height [...] of: ALANIS Zavala documented in this encounter [facility] History of Present illness Narrative 02-17-2025 ALANIS Zavala - 02/17/2025 11:40 AM EDT Note Date & Type Note Facility 02-17-2025 History of Presen t illness Narrative Reason for Appointment: Patient ID: Marialuisa Goode is a 29 y.o. female who presents for Contraception Patient presents today for Acute Visit. MEDICATIONS Current Outpatient Medications Medication Instructions levonorgestrel-ethinyl estradiol (Jolessa) 0.15-0.03 MG tablet 1 tablet, Oral, Daily, Take 1 tablet by mouth daily ALLERGIES Allergies Allergen Reactions Seasonal [...] Vitals: Estimated body mass index is 23.44 kg/m as calculated from the following: Height [...] of: ALANIS Zavala documented in this encounter [facility] History of Present illness Narrative 08-20-2023 ALANIS Zavala - 08/20/2023 9:50 AM EST Note Date & Type Note Facility 08-20-2023 History of Presen t illness Narrative Reason for Appointment: Patient ID: Marialuisa Goode is a 28 y.o. female who presents [...] of: ALANIS Zavala documented in this encounter [facility] Evaluation + Plan note 02-27-2023 Note Date & Type Note Facility 02-27-2023 Evaluation + Plan note Diagnostic Tests PendingUrine Culture 02/27/23HIV Screen 4th Generation wRfx 02/27/23HCV Antibody RFX to Quant PCR 02/27/23Hepatitis B Surface Antigen 02/27/23RPR with Conf Rfx 02/27/23Rubella Antibody IgG 02/27/23Rubella Antibody IgM 02/27/23 [facility] Evaluation note Note Date & Type Note Facility Evaluation note Diagnosis Third trimester state, incidental documented in this encounter [facility] Evaluation note Note Date & Type Note Facility Evaluation note Diagnosis Encounter for initial prescription of contraceptives, unspecified contraceptive documented in this encounter [facility] Evaluation note Note Date & Type Note Facility Evaluation note Diagnosis Well woman exam with routine gynecological exam Routine gynecological examination documented in this encounter [facility] Hospital course Narrative Note Date & Type Note Facility Hospital course Narrative No data available for this section [facility] Hospital Discharge instructions Note Date & Type Note Facility Hospital Discharge instructions No data available for this section [facility] Progress note Note Date & Type Note Facility Progress note No data available for this section [facility] Summary Purpose Family History No Family History Records FoundNo Family History Records FoundNo Family History Records FoundNo Family History Records Found Advance Directives No Advanced Directives Records FoundNo Advanced Directives Records FoundNo Advanced Directives Records FoundNo Advanced Directives Records Found Instructions * Patient Instructions - Deirdre Aleman PA-C - 03/09/2017 6:54 PM EDT Follow up with [facility], If worse go to ED [...] Log into your personal health record on [email or web address] and enter M049 in the Education box to learn more about Exposure to Sexually Transmitted Infections: Care Instructions. Current as of: December 03, 2015 Content Version: 11.2 0568-3557 [employer]. Care instructions adapted under license by your healthcare professional. If you have questions about a medical condition or this instruction, always ask your healthcare professional. [employer] disclaims any warranty or liability for your use of this information. in this encounter History of Present Illness * Deirdre Aleamn PA-C - 03/09/2017 6:50 PM EDT Formatting of this note may be different from the original. PATIENT NAME: Marialuisa Goode [facility] [address] [facility] [address] : 1995 DATE OF VISIT: 03/09/2017 #: [...] section and content) DATE CREATED AUTHOR 01/02/2018 [facility] DATE CREATED AUTHOR AUTHOR'S ORGANIZ ATION 01/17/2018 [facility] DATE CREATED AUTHOR AUTHOR'S ORGANIZ ATION 03/02/2023 [facility] DATE CREATED AUTHOR AUTHOR'S ORGANIZ ATION 02/18/2025 [facility] EPIC Reason for Visit (unrecogniz ed section and content) Reason Comments Exposure to STD boyfriend treated fo r chlamydia today Reason Comments Routine Visit Reason Comments Contraception Reason Comments Well Women Visit Patient Care team informatio n (unrecognized section and content) [employer] Feeder Relationship Specialty Start Date End Date Duran Cleveland MD [address] [place] [address] PCP - General Family Medicine 01/29/23 [employer] Relationship Specialty Start Date End Date Duran Cleveland MD [address] [place] [address] PCP - General Family Medicine 01/29/23 [employer] Fe[employer] Relationship Specialty Start Date End Date Duran Cleveland MD [address] [place] [address] PCP - General Family Medicine 01/29/23 [employer] Feeder Relationship Specialty Start Date End Date Duran Cleveland MD [address] [place] [address] PCP - General Family Medicine 01/29/23 FOR [...] BE BASED ON THE PRIMARY CLINICAL RECORDS. [facility], [facility]. provides no warranty or guarantee of the accuracy or completeness of information in this document.
[2025-03-06 17:09] LABS: Age Gdln ACOG Testing Note (.); IGP, rfx Aptima HPV ASCU Note (.)
== END 2025-03-03 20:21 | disposition home or self-care (01) ==
LOC: LAB 20:20
PROVIDERS: Family Provider Family Medicine; Visit Provider Physician Assistant
DX: Z01.419 Encounter for gynecological examination (general) (routine) without abnormal findings (principal)
CPT/HCPCS: 88175